=== PATIENT | male | born 1965 | race Caucasian/White ===

== ENCOUNTER → 2018-07-20 16:23 | Outpatient (CLI) | payer BC, SELFPAY ==
[2014-09-26 11:05] VITALS: BMI 42.3
--- NOTE | 2018-07-20 | ASPSI_PTH ---
PATIENT: EDDIE LINK LOC: [facility] U#:[id number] AGE/SX: 59/M ROOM: RE07/20/[address]: Dr. Xuan May MD : 1965 BED: DIS: SPEC #: [id number] RECD: 07/20/18 16:21 STATUS: VLAD DEAN #: [id number] EMELINA: 07/20/18 00:[address]: Xuan May DEPT: CYTOLOGY RECD BY: Waqar Horvath ENTERED: 07/21/18 11:46 SP TYPE: ASP NEAL PETTY DR: MD Dr. Tutu Raphael DO Tissues: A - Thyroid gland, NOS B - Thyroid gland, NOS Procedures: Pap Stain (control) Special Stain Group II Surgery Specimen Level IV Cell Block Cytospin Fluid Cytology Other HEADER OPERATION: Ultrasound-guided fine needle aspiration left thyroid PRE-OP DIAGNOSIS: Left thyroid nodule TISSUE SUBMITTED: A - FNA left thyroid fluid for cytology, B - FNA left thyroid slides x8 DIAGNOSIS CYTOLOGY A. 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 B. Fine needle aspiration, left thyroid nodule (smears): Positive for malignant cells consistent with papillary carcinoma. AM:duy 07/22/18 COMMENT A & B. 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 Clinical correlation is suggested. Immunohistochemistry on cell block (specimen `A'), [id number] supports the above diagnosis. Case has been reviewed in consultation with Dr. Nicole who concurs with the above diagnosis. IDC:SJ CYTOLOGY STUDY Slides are reviewed. CYTOLOGY GROSS A - Received is 22 ml of cloudy brown fluid labeled with the patient's name and and designated per the requisition as left thyroid. Submitted for cytology preparation including cell block. B - Received are eight smears labeled with the patient's name and designated per the requisition as left thyroid. Submitted for staining. 07/21/18 TC:0 CPT: 62562, 55463, 56552
--- NOTE | 2018-07-20 | IMM_PTH ---
PATIENT: EDDIE LINK LOC: [facility] U#:[id number] AGE/SX: 59/M ROOM: RE07/20/[address]: Dr. Xuan May MD : 1965 BED: DIS: SPEC #: [id number] RECD: 07/22/18 11:44 STATUS: VLAD REQ #: [id number] EMELINA: 07/20/18 00:[address]: Xuan May DEPT: IMMUNOHISTOCHEMISTRY RECD BY: Michela Rangel ENTERED: 07/22/18 11:46 SP TYPE: IMMUNO OTHR DR: Dr. Tutu Hendricks, DO Tissues: A - Thyroid gland, NOS Procedures: CD56 (add) CK19 (add) GAL-3 (add) HBME (add) CD44 (add) TTF1 (initial) PHYSICIAN & INSTITUTION [facility] [id number] SPECIMEN INFORMATION: Tissue Source: A - Left thyroid fluid, FNA Clinical Info: Left thyroid nodule Specimen Number: [id number] CPT code: 13708, 01948 x5 METHODOLOGY: Deparaffinized sections of prefer/formalin-fixed tissue or PAP/DQ stained slides are incubated with monoclonal/polyclonal antibodies/oligonucleotide probes. Localization is made via biotin free immunoperoxidase method. Appropriate controls are performed and reacted as expected. Results on target cell population are indicated in the following table: RESULTS: ANTIBODY / CLONE RESULT Block A TTF-1 (8G7G3/1) positive HBME1 (HBME-1) positive CK19 (A53-B/A2.26) positive GAL3 (9C4) positive CD56 (123C3.D5) negative anti-CD44 (SP37) positive These tests were developed and their performance characteristics determined by Laboratory. They may not have been cleared or approved by the U.[place]. Food and Drug Administration. The FDA has determined that such clearance or approval is not necessary. INTERPRETATION: A. Left thyroid fluid, FNA: Consistent with papillary thyroid carcinoma. AM:duy 07/23/18 Case has been reviewed in consultation with Dr. Nicole who concurs with the above diagnosis. IDC:GERA
--- OUTSIDE RECORDS SUMMARY | 2018-10-22 09:10 | XMS RPT_ITS ---
:1965 Author Organization [facility] Care Team Providers Name Role Phone CAMILA MANCUSO (DEHYDRATOR OPERATOR) Referring Unavailable CAMILA MANCUSO (DEHYDRATOR OPERATOR) Referring Unavailable CAMILA MANCUSO (DEHYDRATOR OPERATOR) Attending Unavailable CAMILA MANCUSO (DEHYDRATOR OPERATOR) Referring Unavailable MARGOT NEVAREZ (PA) Attending Unavailable SUSANA MENDIETA Referring Unavailable GABINO JOSEPH Admitting Unavailable GABINO JOSEPH Attending Unavailable MARGOT NEVAREZ (PA) Referring Unavailable CAMILA MANCUSO (DEHYDRATOR OPERATOR) Referring Unavailable CAMILA MANCUSO (DEHYDRATOR OPERATOR) Attending Unavailable CAMILA MANCUSO (DEHYDRATOR OPERATOR) Referring Unavailable CAMILA MANCUSO (DEHYDRATOR OPERATOR) Referring Unavailable CAMILA MANCUSO (DEHYDRATOR OPERATOR) Referring Unavailable CAMILA MANCUSO (DEHYDRATOR OPERATOR) Referring Unavailable MANCUSO, CAMILA (DEHYDRATOR OPERATOR) Referring Unavailable MANCUSO, CAMILA (DEHYDRATOR OPERATOR) Referring Unavailable XUAN MAY Attending Unavailable MISTY FLORES Referring Unavailable XUAN MAY Attending Unavailable XUAN MAY Referring Unavailable Bindu Ward Attending Unavailable Bindu Ward Referring Unavailable Farideh Warde Primary Care Unavailable Xuan May Attending Unavailable Xuan May Referring Unavailable ADALBERTO ALVA Primary Care Unavailable Gordo Torre Attending Unavailable Primay Care Physicia, No Referring Unavailable PROBLEMS PROBLEMS DATE TYPE CONDITION / CODE ATTENDING STATUS SOURCE 07/08/2018 Active Nontoxic single NA Active [place] thyroid nodule / Clinic Main E04.1(ICD-10) [facility] Repository 07/04/2016 Active Malignant neoplasm of NA Active [facility] rectum / C20(ICD-10) Clinic Other [facility] Rep[facility] 07/07/2018 Active Solitary pulmonary NA Active [place] nodule / Clinic Other R91.1(ICD-10) [facility] Repository 06/26/2018 Active Elevated NA Active [place] carcinoembryonic [facility] Main antigen (CEA) / [facility] R97.0(ICD-10) Repository 12/26/2017 Admitting Other fatigue / Ed, Active [facility] Diagnosis R53.83(ICD-10) [facility] Repository 12/26/2017 Admitting Hyperlipidemia, Ed, Active [facility] Diagnosis unspecified / [facility] E78.5(ICD-10) Repository 12/26/2017 Admitting Encounter for Ed, Active [facility] Diagnosis screening for [facility] malignant neoplasm of Repository prostate / Z12.5(ICD-10) 11/28/2017 Active Encounter for FAZAL, [facility] screening for GABINO T [facility] Main malignant neoplasm of [facility] colon / Repository Z12.11(ICD-10) 08/27/2017 Active Unknown / MANCUSO, Active [facility] UNK(Unknown) CAMILA (DEHYDRATOR OPERATOR) Clinic Main [facility] Repository PROCEDURES PROCEDURES No Procedure Records FoundRESULTS RESULTS PROGRESS Observed: 07/27/2018 Status: COMPLETED Source: [place] 11:42 AM [facility] REPOSITORY HNO ID: [id number] Author: Xuan May Service: (none) Author Type: Physician Type: Progress Notes Filed: 07/27/2018 11:52 AM Note Text: Eddie Segura Nikolay 1965 CHIEF COMPLAINT: Abnormal thyroid ultrasound HPI: Eddie is a 52 year old male with history of rectal cancer. Had follow up surveillance scan - found to have increased uptake on PET/CT of left thyroid area. US 07/16/18 Right thyroid lobe: Size: 5.5 x 2.1 x 1.8 cm (cc by AP by transverse) Nodules: None Left thyroid lobe: Size: 4 x 2.1 x 1.7 cm (cc by AP by transverse) Nodules: Heterogeneous, vascular 1.6 x 1.2 x 1.5 cm upper pole nodule demonstrates punctate echogenicities suggesting calcifications. Isthmus: Size: 0.4 cm (AP) Nodules: None Denies palpable neck masses. Denies new onset hoarseness. Denies swallowing problems. Denies taking any thyroid hormones. Denies exposure to radiation of head and neck area. Denies history of thyroiditis. No thyroid cancer known in family. 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 Fine needle aspiration, left thyroid nodule (smears): Positive for malignant cells consistent with papillary carcinoma RESULTS: ANTIBODY / CLONE RESULT Block A TTF-1 (8G7G3/1) positive HBME1 (HBME-1) positive CK19 (A53-B/A2.26) positive GAL3 (9C4) positive CD56 (123C3.D5) negative anti-CD44 (SP37) positive PAST MEDICAL HISTORY Hypertension Hyperlipidemia History of Rectal Cancer stage III - s/p APR, chemotherapy and radiation therapy History of left lower extremity DVT PAST SURGICAL HISTORY Past Surgical History of - 09/16/2013 (colon/ rectum resection) Colonoscopy W/Bx (Colon) - 08/13/13 Tunnel Vad W Sub Q Port >=5 - 11/09/13 (Left subclavian) Ventral hernia repair 09/26/14 Ventral hernia repair 03/21/16 COLONOSCOP W/ OR W/O BRSH SPEC 12/23/14 clean anastomosis - 3 year follow up COLONOSCOPY W/BX (COLON) 08/13/13 HERNIA REPAIR HX 03/2016 LAP INC HERNIA REPAIR 09/26/14 10x15 and [id number] mesh PAST SURGICAL HISTORY OF 09/16/2013 colon/ rectum resection TUNNEL VAD W SUB Q PORT >=5 11/09/13 Left subclavian APR 09/16/13 Right myofascial advancement flap Left myofascial advancement flap Current outpatient prescriptions: acetaminophen (TYLENOL EXTRA STRENGTH) 500 mg tablet Take two tablets by mouth every 4-6 hours as needed. Jzhixigicx-zhPRGVTdfh-HJEK (TRIBENZOR) 40-10-25 mg tab Take 1 tablet by mouth once daily. ALLERGIES: Codeine; Aleve; Aspirin PERSONAL HISTORY: SOCIAL HISTORY Marital Status: Tobacco Use: 1 packs/day, for 10 years. Quit 08/04/1987. Types: Cigarettes Alcohol Use: No Drug Use: No Sexual Activity: Not on file FAMILY HISTORY: Mother: Breast Cancer Father: other (renal failure; father at young age ude to kidney failure.) REVIEW OF SYSTEMS: General: The patient denies fatigue, denies weight loss, denies weight gain, denies feeling hot, and denies feelings of cold. Eyes: The patient denies glaucoma, denies eye injury/surgery, does not wear glasses or contacts. Ear/Nose/Throat: The patient denies allergies, denies hayfever, denies ear infections, and denies bloody noses. Cardiovascular: The patient denies chest pain, denies heart disease, notes high blood pressure,denies cardiac stent, denies prior heart attack, denies irregular heart beat, denies high cholesterol, denies poor circulation, denies heart failure, other cardiac issues, denies claudication, denies cold feet, denies peripheral arterial stent. Respiratory: The patient denies tuberculosis, denies pneumonia, denies frequent cough, denies pulmonary embolism, denies shortness of breath, and denies coughing up blood. Gastrointestinal: The patient denies difficulty swallowing, denies acid reflux, denies ulcers, denies vomiting, denies jaundice/hepatitis, denies gallbladder problems, denies black or tarry stools, denies hemorrhoids, denies bleeding from rectum, denies diverticulitis, denies constipation, denies diarrhea, denies loss of stool control, and notes hernias. Kidney/Bladder: The patient denies kidney stones, denies urine infections, and denies bloody urine. Skin: The patient denies a history of skin cancer, denies bleeding/changing moles, and denies a history of skin rash. Neurologic: The patient denies a history of epilepsy/convulsions, denies headaches, denies head/spinal injuries, and denies stroke/TIA. Psychiatric: The patient denies psychiatric medications, denies depression, and denies voices, denies substance abuse. Endocrine: The patient denies thyroid disorders, denies diabetes, and denies hormonal problems. Hematologic: The patient denies a history of bruising, denies bleeding, and denies anemia, denies blood clots. Infections: The patient denies a history of measles and mumps, denies rheumatic fever, and denies sexually transmitted diseases. Musculoskeletal: The patient denies back pain/injury, denies back problems, denies sciatica, denies knee/foot trouble, denies arthritis, or denies gout. PHYSICAL EXAMINATION: General: The patient is 48 year old male, well nourished, well hydrated in no acute distress. The patient is oriented to time, place, and person. VITALS: Ht: 5'10 Wt: 238# Head: normocephalic, atraumatic Eyes: sclera clear Mouth: mucus membranes moist Neck: supple with no JVD noted, trachea is midline, no thyroid enlargement or masses noted Respiratory: Clear to auscultation and percussion. Normal respiratory excursion and pattern. Cardiac: Examination is regular rate and rhythm. Abdominal exam: Soft, nontender, with no palpable masses. No hepatosplenomegaly. Rectal exam: exam deferred Extremities: no clubbing, cyanosis or edema. Lymph: no cervical or supraclavicular or axillary adenopathy RADIOLOGIC STUDIES: As Noted IMPRESSION: probable papillary thyroid cancer PLAN: I have discussed above with patient. I have discussed thyroid surgery with patient. Patient wishes to go to [facility] for surgery, I will refer patient to see Dr. Susi ADAN Observed: 07/27/2018 Status: COMPLETED Source: [place] 10:30 AM [facility] REPOSITORY Office Visit (GENSWS) EDDIE LONGORIA ([id number]) 1965 [place] Date Time Provider Department 07/27/18 10:30 AM XUAN MAY During your visit today, we recorded the following information about you: Xuna May MD 07/27/2018 11:52 AM Signed Eddie Longoria 1965 CHIEF COMPLAINT: Abnormal thyroid ultrasound HPI: Eddie is a 52 year old male with history of rectal cancer. Had follow up surveillance scan - found to have increased uptake on PET/CT of left thyroid area. US 07/16/18 Right thyroid lobe: Size: 5.5 x 2.1 x 1.8 cm (cc by AP by transverse) Nodules: None Left thyroid lobe: Size: 4 x 2.1 x 1.7 cm (cc by AP by transverse) Nodules: Heterogeneous, vascular 1.6 x 1.2 x 1.5 cm upper pole nodule demonstrates punctate echogenicities suggesting calcifications. Isthmus: Size: 0.4 cm (AP) Nodules: None Denies palpable neck masses. Denies new onset hoarseness. Denies swallowing problems. Denies taking any thyroid hormones. Denies exposure to radiation of head and neck area. Denies history of thyroiditis. No thyroid cancer known in family. 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 Fine needle aspiration, left thyroid nodule (smears): Positive for malignant cells consistent with papillary carcinoma RESULTS: ANTIBODY / CLONE RESULT Block A TTF-1 (8G7G3/1) positive HBME1 (HBME-1) positive CK19 (A53-B/A2.26) positive GAL3 (9C4) positive CD56 (123C3.D5) negative anti-CD44 (SP37) positive PAST MEDICAL HISTORY Hypertension Hyperlipidemia History of Rectal Cancer stage III - s/p APR, chemotherapy and radiation therapy History of left lower extremity DVT PAST SURGICAL HISTORY Past Surgical History of - 09/16/2013 (colon/ rectum resection) Colonoscopy W/Bx (Colon) - 08/13/13 Tunnel Vad W Sub Q Port >=5 - 11/09/13 (Left subclavian) Ventral hernia repair 09/26/14 Ventral hernia repair 03/21/16 COLONOSCOP W/ OR W/O BRSH SPEC 12/23/14 clean anastomosis - 3 year follow up COLONOSCOPY W/BX (COLON) 08/13/13 HERNIA REPAIR HX 03/2016 LAP INC HERNIA REPAIR 09/26/14 10x15 and [id number] mesh PAST SURGICAL HISTORY OF 09/16/2013 colon/ rectum resection TUNNEL VAD W SUB Q PORT >=5 11/09/13 Left subclavian APR 09/16/13 Right myofascial advancement flap Left myofascial advancement flap Current outpatient prescriptions: acetaminophen (TYLENOL EXTRA STRENGTH) 500 mg tablet Take two tablets by mouth every 4-6 hours as needed. Mirqvomjzw-kjURZFSgqj-DLEO (TRIBENZOR) 40-10-25 mg tab Take 1 tablet by mouth once daily. ALLERGIES: Codeine; Aleve; Aspirin PERSONAL HISTORY: SOCIAL HISTORY Marital Status: Tobacco Use: 1 packs/day, for 10 years. Quit 08/04/1987. Types: Cigarettes Alcohol Use: No Drug Use: No Sexual Activity: Not on file FAMILY HISTORY: Mother: Breast Cancer Father: other (renal failure; father at young age ude to kidney failure.) REVIEW OF SYSTEMS: General: The patient denies fatigue, denies weight loss, denies weight gain, denies feeling hot, and denies feelings of cold. Eyes: The patient denies glaucoma, denies eye injury/surgery, does not wear glasses or contacts. Ear/Nose/Throat: The patient denies allergies, denies hayfever, denies ear infections, and denies bloody noses. Cardiovascular: The patient denies chest pain, denies heart disease, notes high blood pressure,denies cardiac stent, denies prior heart attack, denies irregular heart beat, denies high cholesterol, denies poor circulation, denies heart failure, other cardiac issues, denies claudication, denies cold feet, denies peripheral arterial stent. Respiratory: The patient denies tuberculosis, denies pneumonia, denies frequent cough, denies pulmonary embolism, denies shortness of breath, and denies coughing up blood. Gastrointestinal: The patient denies difficulty swallowing, denies acid reflux, denies ulcers, denies vomiting, denies jaundice/hepatitis, denies gallbladder problems, denies black or tarry stools, denies hemorrhoids, denies bleeding from rectum, denies diverticulitis, denies constipation, denies diarrhea, denies loss of stool control, and notes hernias. Kidney/Bladder: The patient denies kidney stones, denies urine infections, and denies bloody urine. Skin: The patient denies a history of skin cancer, denies bleeding/changing moles, and denies a history of skin rash. Neurologic: The patient denies a history of epilepsy/convulsions, denies headaches, denies head/spinal injuries, and denies stroke/TIA. Psychiatric: The patient denies psychiatric medications, denies depression, and denies voices, denies substance abuse. Endocrine: The patient denies thyroid disorders, denies diabetes, and denies hormonal problems. Hematologic: The patient denies a history of bruising, denies bleeding, and denies anemia, denies blood clots. Infections: The patient denies a history of measles and mumps, denies rheumatic fever, and denies sexually transmitted diseases. Musculoskeletal: The patient denies back pain/injury, denies back problems, denies sciatica, denies knee/foot trouble, denies arthritis, or denies gout. PHYSICAL EXAMINATION: General: The patient is 48 year old male, well nourished, well hydrated in no acute distress. The patient is oriented to time, place, and person. VITALS: Ht: 5'10 Wt: 238# Head: normocephalic, atraumatic Eyes: sclera clear Mouth: mucus membranes moist Neck: supple with no JVD noted, trachea is midline, no thyroid enlargement or masses noted Respiratory: Clear to auscultation and percussion. Normal respiratory excursion and pattern. Cardiac: Examination is regular rate and rhythm. Abdominal exam: Soft, nontender, with no palpable masses. No hepatosplenomegaly. Rectal exam: exam deferred Extremities: no clubbing, cyanosis or edema. Lymph: no cervical or supraclavicular or axillary adenopathy RADIOLOGIC STUDIES: As Noted IMPRESSION: probable papillary thyroid cancer PLAN: I have discussed above with patient. I have discussed thyroid surgery with patient. Patient wishes to go to [facility] for surgery, I will refer patient to see Dr. Goldman Referring Provider: XUAN MAY [[id number]] Allergies As of Date: 07/27/2018 Noted Allergy Reaction CODEINE 08/25/2013 10 - Anaphylaxis Comments: Had codeine when a teenager and had facial swelling. ALEVE (NAPROXEN SODIUM) 08/25/2013 8 - GI Upset ASPIRIN 08/25/2013 8 - GI Upset Date Reviewed: 07/27/2018 Reviewed by: Xuan May - Fully Assessed Reason for Visit: discuss biopsy [Other] Primary Visit Diagnosis:Thyroid cancer (HCC) [C73] Prescriptions as of 07/27/2018 Sig: AMLODIPINE 10 MG-OLMESARTAN 4* Take by mouth once daily. IBUPROFEN 200 MG TABLET Take 600 mg by mouth every 8 * MULTIVITAMIN TABLET Take 1 tablet by mouth once d* OLMESARTAN 40 MG-AMLODIPINE 1* Take 1 tablet by mouth once d* Problem List As Of Date 07/27/2018 Noted Resolved Rectal cancer (HCC) [C20] INVALID FOR*03/21/2016 DVT (deep venous thrombosis) (HCC) [I82.409] INVALID FOR*03/21/2016 Thrombocytopenia (HCC) [D69.6] INVALID FOR* Incisional hernia [K43.2] INVALID FOR*03/21/2016 Incisional hernia, without obstruction or gangr*INVALID FOR* Recurrent incisional hernia with incarceration *INVALID FOR*03/21/2016 Incisional hernia [K43.2] INVALID FOR* Rectal cancer (HCC) [C20] INVALID FOR* Thyroid nodule [E04.1] INVALID FOR* Follow-up and Disposition History Recorded Encounter Status:Closed by MD XUAN MAY on 07/27/18 PROCEDURE Observed: 07/25/2018 Status: COMPLETED Source: [place] 12:10 PM [facility] REPOSITORY HNO ID: [id number] Author: Xuan May Service: (none) Author Type: Physician Type: Procedures Filed: 07/25/2018 12:11 PM Note Text: After informed consent was given and patient gives permission for the procedure, the patient was placed in the supine position with slight neck extension. Appropriate time out protocol was followed. The ultrasound transducer was used to localize the lesion which was in the left lobe. The skin and subcutaneous tissues were then infiltrated with 1% xylocaine with epinephrine after the skin was cleansed with betadyne. A 22G needle attached to a 10 cc syringe was the inserted into the nodule using the US transducer as guidance. The syringe was aspirated, several passes were made to obtain adequate tissue. The needle was then withdrawn and smear slides were made and the remainder of the tissue was placed in formalin. Hemostasis was achieved by pressure. A bandaid was applied to the site. Patient tolerated procedure well. CNOV Observed: 07/20/2018 Status: COMPLETED Source: [place] 9:10 AM [facility] REPOSITORY Office Visit (GENSWS) EDDIE LONGORIA ([id number]) 1965 M Date Time Provider Department 07/20/18 9:10 AM XUAN MAY During your visit today, we recorded the following information about you: Temperature Pulse Blood pressure Weight 98.1 degrees 66/minute 136/84 108 kg Xuan May MD 07/25/2018 12:11 PM Signed Eddie Longoria 1965 CHIEF COMPLAINT: Abnormal thyroid ultrasound HPI: Eddie is a 52 year old male with history of rectal cancer. Had follow up surveillance scan - found to have increased uptake on PET/CT of left thyroid area. US 07/16/18 Right thyroid lobe: Size: 5.5 x 2.1 x 1.8 cm (cc by AP by transverse) Nodules: None Left thyroid lobe: Size: 4 x 2.1 x 1.7 cm (cc by AP by transverse) Nodules: Heterogeneous, vascular 1.6 x 1.2 x 1.5 cm upper pole nodule demonstrates punctate echogenicities suggesting calcifications. Isthmus: Size: 0.4 cm (AP) Nodules: None Denies palpable neck masses. Denies new onset hoarseness. Denies swallowing problems. Denies taking any thyroid hormones. Denies exposure to radiation of head and neck area. Denies history of thyroiditis. No thyroid cancer known in family. PAST MEDICAL HISTORY Hypertension Hyperlipidemia History of Rectal Cancer stage III - s/p APR, chemotherapy and radiation therapy History of left lower extremity DVT PAST SURGICAL HISTORY Past Surgical History of - 09/16/2013 (colon/ rectum resection) Colonoscopy W/Bx (Colon) - 08/13/13 Tunnel Vad W Sub Q Port >=5 - 11/09/13 (Left subclavian) Ventral hernia repair 09/26/14 Ventral hernia repair 03/21/16 COLONOSCOP W/ OR W/O BRSH SPEC 12/23/14 clean anastomosis - 3 year follow up COLONOSCOPY W/BX (COLON) 08/13/13 HERNIA REPAIR HX 03/2016 LAP INC HERNIA REPAIR 09/26/14 10x15 and [id number] mesh PAST SURGICAL HISTORY OF 09/16/2013 colon/ rectum resection TUNNEL VAD W SUB Q PORT >=5 11/09/13 Left subclavian APR 09/16/13 Right myofascial advancement flap Left myofascial advancement flap Current outpatient prescriptions: acetaminophen (TYLENOL EXTRA STRENGTH) 500 mg tablet Take two tablets by mouth every 4-6 hours as needed. Pbwffcyvof-zcLHOIDcls-BNCA (TRIBENZOR) 40-10-25 mg tab Take 1 tablet by mouth once daily. ALLERGIES: Codeine; Aleve; Aspirin PERSONAL HISTORY: SOCIAL HISTORY Marital Status: Tobacco Use: 1 packs/day, for 10 years. Quit 08/04/1987. Types: Cigarettes Alcohol Use: No Drug Use: No Sexual Activity: Not on file FAMILY HISTORY: Mother: Breast Cancer Father: other (renal failure; father at young age ude to kidney failure.) REVIEW OF SYSTEMS: General: The patient denies fatigue, denies weight loss, denies weight gain, denies feeling hot, and denies feelings of cold. Eyes: The patient denies glaucoma, denies eye injury/surgery, does not wear glasses or contacts. Ear/Nose/Throat: The patient denies allergies, denies hayfever, denies ear infections, and denies bloody noses. Cardiovascular: The patient denies chest pain, denies heart disease, notes high blood pressure,denies cardiac stent, denies prior heart attack, denies irregular heart beat, denies high cholesterol, denies poor circulation, denies heart failure, other cardiac issues, denies claudication, denies cold feet, denies peripheral arterial stent. Respiratory: The patient denies tuberculosis, denies pneumonia, denies frequent cough, denies pulmonary embolism, denies shortness of breath, and denies coughing up blood. Gastrointestinal: The patient denies difficulty swallowing, denies acid reflux, denies ulcers, denies vomiting, denies jaundice/hepatitis, denies gallbladder problems, denies black or tarry stools, denies hemorrhoids, denies bleeding from rectum, denies diverticulitis, denies constipation, denies diarrhea, denies loss of stool control, and notes hernias. Kidney/Bladder: The patient denies kidney stones, denies urine infections, and denies bloody urine. Skin: The patient denies a history of skin cancer, denies bleeding/changing moles, and denies a history of skin rash. Neurologic: The patient denies a history of epilepsy/convulsions, denies headaches, denies head/spinal injuries, and denies stroke/TIA. Psychiatric: The patient denies psychiatric medications, denies depression, and denies voices, denies substance abuse. Endocrine: The patient denies thyroid disorders, denies diabetes, and denies hormonal problems. Hematologic: The patient denies a history of bruising, denies bleeding, and denies anemia, denies blood clots. Infections: The patient denies a history of measles and mumps, denies rheumatic fever, and denies sexually transmitted diseases. Musculoskeletal: The patient denies back pain/injury, denies back problems, denies sciatica, denies knee/foot trouble, denies arthritis, or denies gout. PHYSICAL EXAMINATION: General: The patient is 48 year old male, well nourished, well hydrated in no acute distress. The patient is oriented to time, place, and person. VITALS: Ht: 5'10 Wt: 238# Head: normocephalic, atraumatic Eyes: sclera clear Mouth: mucus membranes moist Neck: supple with no JVD noted, trachea is midline, no thyroid enlargement or masses noted Respiratory: Clear to auscultation and percussion. Normal respiratory excursion and pattern. Cardiac: Examination is regular rate and rhythm. Abdominal exam: Soft, nontender, with no palpable masses. No hepatosplenomegaly. Rectal exam: exam deferred Extremities: no clubbing, cyanosis or edema. Lymph: no cervical or supraclavicular or axillary adenopathy RADIOLOGIC STUDIES: As Noted IMPRESSION: left thyroid nodule with increased uptake PLAN: I have discussed above with patient. I have recommended US guided FNA of left thyroid nodule. I have explained the procedure to the patient. I have counseled patient as to risks of the procedure, including but not limited to: infection, bleeding, scar tissue, etc. - he understands. He wishes to proceed. Patient tolerated procedure well. This office will call with pathology results. Lashae Farrell RN 07/20/2018 9:08 AM Signed REVIEW OF SYSTEMS: General: The patient denies fatigue, denies weight loss, denies weight gain, denies feeling hot, and denies feelings of cold. Eyes: The patient denies glaucoma, denies eye injury/surgery, does not wear glasses or contacts. Ear/Nose/Throat: The patient denies allergies, denies hayfever, denies ear infections, and denies bloody noses. Cardiovascular: The patient denies chest pain, denies heart disease, notes high blood pressure,denies cardiac stent, denies prior heart attack, denies irregular heart beat, denies high cholesterol, denies poor circulation, denies heart failure, other cardiac issues, denies claudication, denies cold feet, denies peripheral arterial stent. Respiratory: The patient denies tuberculosis, denies pneumonia, denies frequent cough, denies pulmonary embolism, denies shortness of breath, and denies coughing up blood. Gastrointestinal: The patient denies difficulty swallowing, denies acid reflux, denies ulcers, denies vomiting, denies jaundice/hepatitis, denies gallbladder problems, denies black or tarry stools, denies hemorrhoids, denies bleeding from rectum, denies diverticulitis, denies constipation, denies diarrhea, denies loss of stool control, and notes hernias. Kidney/Bladder: The patient denies kidney stones, denies urine infections, and denies bloody urine. Skin: The patient denies a history of skin cancer, denies bleeding/changing moles, and denies a history of skin rash. Neurologic: The patient denies a history of epilepsy/convulsions, denies headaches, denies head/spinal injuries, and denies stroke/TIA. Psychiatric: The patient denies psychiatric medications, denies depression, and denies voices, denies substance abuse. Endocrine: The patient denies thyroid disorders, denies diabetes, and denies hormonal problems. Hematologic: The patient denies a history of bruising, denies bleeding, and denies anemia, denies blood clots. Infections: The patient denies a history of measles and mumps, denies rheumatic fever, and denies sexually transmitted diseases. Musculoskeletal: The patient denies back pain/injury, denies back problems, denies sciatica, denies knee/foot trouble, denies arthritis, or denies gout. When was patient's last Mammogram screening? N/A Last Colonoscopy: 11/2017 Lashae May MD 07/25/2018 12:11 PM Signed After informed consent was given and patient gives permission for the procedure, the patient was placed in the supine position with slight neck extension. Appropriate time out protocol was followed. The ultrasound transducer was used to localize the lesion which was in the left lobe. The skin and subcutaneous tissues were then infiltrated with 1% xylocaine with epinephrine after the skin was cleansed with betadyne. A 22G needle attached to a 10 cc syringe was the inserted into the nodule using the US transducer as guidance. The syringe was aspirated, several passes were made to obtain adequate tissue. The needle was then withdrawn and smear slides were made and the remainder of the tissue was placed in formalin. Hemostasis was achieved by pressure. A bandaid was applied to the site. Patient tolerated procedure well. Referring Provider: MISTY FLORES [[id number]] Allergies As of Date: 07/20/2018 Noted Allergy Reaction CODEINE 08/25/2013 10 - Anaphylaxis Comments: Had codeine when a teenager and had facial swelling. ALEVE (NAPROXEN SODIUM) 08/25/2013 8 - GI Upset ASPIRIN 08/25/2013 8 - GI Upset Date Reviewed: 07/20/2018 Reviewed by: Lashae Farrell RN - Fully Assessed Reason for Visit: Consult [173] Cmt: thyroid Primary Visit Diagnosis:Left thyroid nodule [E04.1] Prescriptions as of 07/20/2018 Sig: AMLODIPINE 10 MG-OLMESARTAN 4* Take by mouth once daily. IBUPROFEN 200 MG TABLET Take 600 mg by mouth every 8 * MULTIVITAMIN TABLET Take 1 tablet by mouth once d* OLMESARTAN 40 MG-AMLODIPINE 1* Take 1 tablet by mouth once d* Problem List As Of Date 07/20/2018 Noted Resolved Rectal cancer (HCC) [C20] INVALID FOR*03/21/2016 DVT (deep venous thrombosis) (HCC) [I82.409] INVALID FOR*03/21/2016 Thrombocytopenia (HCC) [D69.6] INVALID FOR* Incisional hernia [K43.2] INVALID FOR*03/21/2016 Incisional hernia, without obstruction or gangr*INVALID FOR* Recurrent incisional hernia with incarceration *INVALID FOR*03/21/2016 Incisional hernia [K43.2] INVALID FOR* Rectal cancer (HCC) [C20] INVALID FOR* Thyroid nodule [E04.1] INVALID FOR* Visit Notes: >> Lashae Farrell RN Mon Jul 20, 2018 9:07 AM Status: Signed REVIEW OF SYSTEMS: General: The patient denies fatigue, denies weight loss, denies weight gain, denies feeling hot, and denies feelings of cold. Eyes: The patient denies glaucoma, denies eye injury/surgery, does not wear glasses or contacts. Ear/Nose/Throat: The patient denies allergies, denies hayfever, denies ear infections, and denies bloody noses. Cardiovascular: The patient denies chest pain, denies heart disease, notes high blood pressure,denies cardiac stent, denies prior heart attack, denies irregular heart beat, denies high cholesterol, denies poor circulation, denies heart failure, other cardiac issues, denies claudication, denies cold feet, denies peripheral arterial stent. Respiratory: The patient denies tuberculosis, denies pneumonia, denies frequent cough, denies pulmonary embolism, denies shortness of breath, and denies coughing up blood. Gastrointestinal: The patient denies difficulty swallowing, denies acid reflux, denies ulcers, denies vomiting, denies jaundice/hepatitis, denies gallbladder problems, denies black or tarry stools, denies hemorrhoids, denies bleeding from rectum, denies diverticulitis, denies constipation, denies diarrhea, denies loss of stool control, and notes hernias. Kidney/Bladder: The patient denies kidney stones, denies urine infections, and denies bloody urine. Skin: The patient denies a history of skin cancer, denies bleeding/changing moles, and denies a history of skin rash. Neurologic: The patient denies a history of epilepsy/convulsions, denies headaches, denies head/spinal injuries, and denies stroke/TIA. Psychiatric: The patient denies psychiatric medications, denies depression, and denies voices, denies substance abuse. Endocrine: The patient denies thyroid disorders, denies diabetes, and denies hormonal problems. Hematologic: The patient denies a history of bruising, denies bleeding, and denies anemia, denies blood clots. Infections: The patient denies a history of measles and mumps, denies rheumatic fever, and denies sexually transmitted diseases. Musculoskeletal: The patient denies back pain/injury, denies back problems, denies sciatica, denies knee/foot trouble, denies arthritis, or denies gout. When was patient's last Mammogram screening? N/A Last Colonoscopy: 11/2017 Lashae Farrell RN Letter Text Encounter Status:Closed by MD XUAN MAY on 07/25/18 PROGRESS Observed: 07/20/2018 Status: COMPLETED Source: [place] 8:55 AM [facility] REPOSITORY HNO ID: [id number] Author: Xuan May Service: (none) Author Type: Physician Type: Progress Notes Filed: 07/25/2018 12:11 PM Note Text: Eddie Longoria 1965 CHIEF COMPLAINT: Abnormal thyroid ultrasound HPI: Eddie is a 52 year old male with history of rectal cancer. Had follow up surveillance scan - found to have increased uptake on PET/CT of left thyroid area. US 07/16/18 Right thyroid lobe: Size: 5.5 x 2.1 x 1.8 cm (cc by AP by transverse) Nodules: None Left thyroid lobe: Size: 4 x 2.1 x 1.7 cm (cc by AP by transverse) Nodules: Heterogeneous, vascular 1.6 x 1.2 x 1.5 cm upper pole nodule demonstrates punctate echogenicities suggesting calcifications. Isthmus: Size: 0.4 cm (AP) Nodules: None Denies palpable neck masses. Denies new onset hoarseness. Denies swallowing problems. Denies taking any thyroid hormones. Denies exposure to radiation of head and neck area. Denies history of thyroiditis. No thyroid cancer known in family. PAST MEDICAL HISTORY Hypertension Hyperlipidemia History of Rectal Cancer stage III - s/p APR, chemotherapy and radiation therapy History of left lower extremity DVT PAST SURGICAL HISTORY Past Surgical History of - 09/16/2013 (colon/ rectum resection) Colonoscopy W/Bx (Colon) - 08/13/13 Tunnel Vad W Sub Q Port >=5 - 11/09/13 (Left subclavian) Ventral hernia repair 09/26/14 Ventral hernia repair 03/21/16 COLONOSCOP W/ OR W/O BRSH SPEC 12/23/14 clean anastomosis - 3 year follow up COLONOSCOPY W/BX (COLON) 08/13/13 HERNIA REPAIR HX 03/2016 LAP INC HERNIA REPAIR 09/26/14 10x15 and 23q68gs mesh PAST SURGICAL HISTORY OF 09/16/2013 colon/ rectum resection TUNNEL VAD W SUB Q PORT >=5 11/09/13 Left subclavian APR 09/16/13 Right myofascial advancement flap Left myofascial advancement flap Current outpatient prescriptions: acetaminophen (TYLENOL EXTRA STRENGTH) 500 mg tablet Take two tablets by mouth every 4-6 hours as needed. Varyzgycqu-usRWPLPrmt-EXCA (TRIBENZOR) 40-10-25 mg tab Take 1 tablet by mouth once daily. ALLERGIES: Codeine; Aleve; Aspirin PERSONAL HISTORY: SOCIAL HISTORY Marital Status: Tobacco Use: 1 packs/day, for 10 years. Quit 08/04/1987. Types: Cigarettes Alcohol Use: No Drug Use: No Sexual Activity: Not on file FAMILY HISTORY: Mother: Breast Cancer Father: other (renal failure; father at young age ude to kidney failure.) REVIEW OF SYSTEMS: General: The patient denies fatigue, denies weight loss, denies weight gain, denies feeling hot, and denies feelings of cold. Eyes: The patient denies glaucoma, denies eye injury/surgery, does not wear glasses or contacts. Ear/Nose/Throat: The patient denies allergies, denies hayfever, denies ear infections, and denies bloody noses. Cardiovascular: The patient denies chest pain, denies heart disease, notes high blood pressure,denies cardiac stent, denies prior heart attack, denies irregular heart beat, denies high cholesterol, denies poor circulation, denies heart failure, other cardiac issues, denies claudication, denies cold feet, denies peripheral arterial stent. Respiratory: The patient denies tuberculosis, denies pneumonia, denies frequent cough, denies pulmonary embolism, denies shortness of breath, and denies coughing up blood. Gastrointestinal: The patient denies difficulty swallowing, denies acid reflux, denies ulcers, denies vomiting, denies jaundice/hepatitis, denies gallbladder problems, denies black or tarry stools, denies hemorrhoids, denies bleeding from rectum, denies diverticulitis, denies constipation, denies diarrhea, denies loss of stool control, and notes hernias. Kidney/Bladder: The patient denies kidney stones, denies urine infections, and denies bloody urine. Skin: The patient denies a history of skin cancer, denies bleeding/changing moles, and denies a history of skin rash. Neurologic: The patient denies a history of epilepsy/convulsions, denies headaches, denies head/spinal injuries, and denies stroke/TIA. Psychiatric: The patient denies psychiatric medications, denies depression, and denies voices, denies substance abuse. Endocrine: The patient denies thyroid disorders, denies diabetes, and denies hormonal problems. Hematologic: The patient denies a history of bruising, denies bleeding, and denies anemia, denies blood clots. Infections: The patient denies a history of measles and mumps, denies rheumatic fever, and denies sexually transmitted diseases. Musculoskeletal: The patient denies back pain/injury, denies back problems, denies sciatica, denies knee/foot trouble, denies arthritis, or denies gout. PHYSICAL EXAMINATION: General: The patient is 48 year old male, well nourished, well hydrated in no acute distress. The patient is oriented to time, place, and person. VITALS: Ht: 5'10 Wt: 238# Head: normocephalic, atraumatic Eyes: sclera clear Mouth: mucus membranes moist Neck: supple with no JVD noted, trachea is midline, no thyroid enlargement or masses noted Respiratory: Clear to auscultation and percussion. Normal respiratory excursion and pattern. Cardiac: Examination is regular rate and rhythm. Abdominal exam: Soft, nontender, with no palpable masses. No hepatosplenomegaly. Rectal exam: exam deferred Extremities: no clubbing, cyanosis or edema. Lymph: no cervical or supraclavicular or axillary adenopathy RADIOLOGIC STUDIES: As Noted IMPRESSION: left thyroid nodule with increased uptake PLAN: I have discussed above with patient. I have recommended US guided FNA of left thyroid nodule. I have explained the procedure to the patient. I have counseled patient as to risks of the procedure, including but not limited to: infection, bleeding, scar tissue, etc. - he understands. He wishes to proceed. Patient tolerated procedure well. This office will call with pathology results. IMMUNOHISTOCHEMISTRY Observed: 07/20/2018 Status: F Source: [place] 12:00 AM [facility] REPOSITORY Patient: EDDIE LONGORIA : 1965 (52/M) Acct Num: [id number] Phys: Xuan May MD Unit Num: [id number] Loc: LABSPEC Specimen: [id number] Received: 07/22/18 1144 Spec Type: IMMUNO TISSUES 1 TISSUES: A. Thyroid gland, NOS SPECIMEN INFORMATION: Tissue Source: A - Left thyroid fluid, FNA Clinical Info: Left thyroid nodule Specimen Number: [id number] CPT code: 83420, 58250 x5 METHODOLOGY: Deparaffinized sections of prefer/formalin-fixed tissue or PAP/DQ stained slides are incubated with monoclonal/polyclonal antibodies/oligonucleotide probes. Localization is made via biotin free immunoperoxidase method. Appropriate controls are performed and reacted as expected. Results on target cell population are indicated in the following table: RESULTS: ANTIBODY / CLONE RESULT Block A TTF-1 (8G7G3/1) positive HBME1 (HBME-1) positive CK19 (A53-B/A2.26) positive GAL3 (9C4) positive CD56 (123C3.D5) negative anti-CD44 (SP37) positive These tests were developed and their performance characteristics determined by [facility]. They may not have been cleared or approved by the U.S. Food and Drug Administration. The FDA has determined that such clearance or approval is not necessary. INTERPRETATION: A. Left thyroid fluid, FNA: Consistent with papillary thyroid carcinoma. AM: 07/23/18 Case has been reviewed in consultation with Dr. Nicole who concurs with the above diagnosis. IDC: PHYSICIAN AND INSTITUTION [place] [id number] Signed Chapin Us DO 07/23/18 <signature on file> Performed By: #### PIMM #### [facility] [address] [place] [address]. [place], [address] ASP SEND IN Observed: 07/20/2018 Status: F Source: [place] 12:00 [facility] REPOSITORY Patient: EDDIE LONGORIA : 1965 (52/M) Acct Num: [id number] Phys: Xuan May MD Unit Num: [id number] Loc: LABSPEC Specimen: [id number] Received: 07/20/18 - 1620 Spec Type: ASP SENDIN TISSUES 1 TISSUES: A. Thyroid gland, NOS - FLUID B. Thyroid gland, NOS - SLIDES X8 COMMENT A AND B. The neoplastic cells have H rthle cell features. Clinical correlation is suggested. Immunohistochemistry on cell block (specimen `A'), [id number] supports the above diagnosis. Case has been reviewed in consultation with Dr. Nicole who concurs with the above diagnosis. IDC: CYTOLOGY GROSS A - Received is 22 ml of cloudy brown fluid labeled with the patient's name and and designated per the requisition as left thyroid. Submitted for cytology preparation including cell block. B - Received are eight smears labeled with the patient's name and designated per the requisition as left thyroid. Submitted for staining. / 07/21/18 TC: 0 CPT: 44389, 00221, 71590 CYTOLOGY STUDY Slides are reviewed. DIAGNOSIS CYTOLOGY A. 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 B. Fine needle aspiration, left thyroid nodule (smears): Positive for malignant cells consistent with papillary carcinoma. AM:duy 07/22/18 HEADER OPERATION: Ultrasound-guided fine needle aspiration left thyroid PRE-OP DIAGNOSIS: Left thyroid nodule TISSUE SUBMITTED: A - FNA left thyroid fluid for cytology, B - FNA left thyroid slides x8 Signed Chapin Us, 07/23/18 <signature on file> Performed By: #### MEHDI #### [facility] [address] [place] [address], [id number] PROGRESS Observed: 07/16/2018 Status: COMPLETED Source: [place] 4:14 PM [facility] REPOSITORY O ID: [id number] Author: Юлия Mitchell Service: (none) Author Type: Shaper And Presser Type: Progress Notes Filed: 07/16/2018 4:15 PM Note Text: Radiology Service Progress Note PATIENT NAME: Eddie Longoria DATE OF SERVICE: July 16, 2018 TIME: 4:14 PM PATIENT IDENTITY VERIFICATION COMPLETED USING TWO (2) METHODS: Patient confirmed name verbally and Date of . PATIENT GENDER DATA: Male PATIENT RELEVANT IMPLANT DATA REVIEWED: Not Applicable RADIOLOGY DEPARTMENT: Ultrasound PERIPHERAL IV DATA: Not applicable SIGNED BY: ЮЛИЯ MITCHELL RDMS Beto July 16, 2018 4:14 PM US THYROID/PARATHYROID Observed: 07/16/2018 Status: F Source: [place] 4:13 PM [facility] REPOSITORY * * *Final Report* * * DATE OF EXAM: Jul 16 2018 4:13PM U 1048 - US THYROID/PARATHYROID / PROCEDURE REASON: Thyroid nodule * * * * Physician Interpretation * * * * THYROID ULTRASOUND COMPARISON: 07/07/2018 PET/CT INDICATION: Thyroid nodule seen on recent PET/CT TECHNIQUE: Real-time pete scale ultrasound imaging of the thyroid was performed with color Doppler imaging. Images were obtained and stored in a permanent archive. RESULT: Thyroid is mildly heterogeneous in echotexture. Symmetric Doppler signal to both thyroid lobes without hyperemia. Right thyroid lobe: Size: 5.5 x 2.1 x 1.8 cm (cc by AP by transverse) Nodules: None Left thyroid lobe: Size: 4 x 2.1 x 1.7 cm (cc by AP by transverse) Nodules: Heterogeneous, vascular 1.6 x 1.2 x 1.5 cm upper pole nodule demonstrates punctate echogenicities suggesting calcifications. Isthmus: Size: 0.4 cm (AP) Nodules: None IMPRESSION: Dominant left thyroid nodule. Sap Portal Consultant: JARET Transcribe Date/Time: Jul 17 2018 10:19A Dictated by : EMI BROWN MD This examination was interpreted and the report reviewed and electronically signed by: EMI BROWN MD on Jul 17 2018 10:22AM EST [id number] NM PET/CT WHOLE Observed: 07/07/2018 Status: F Source: [place] BODY INIT 1:28 PM [facility] REPOSITORY * * *Final Report* * * DATE OF EXAM: Jul 07 2018 1:28PM MDP 0061 - NM PET/CT WHOLE BODY INIT / PROCEDURE REASON: multiple diagnoses * * * * Physician Interpretation * * * * EXAMINATION: REGIONAL BODY FDG PET/CT SCAN: (07/07/2018 1:30 PM) HISTORY: 52 year old Male with Rectal cancer (HCC) Lung nodule Malignant neoplasm of rectum (HCC) .PER EPIC NOTE H/o previously in good health. He noted a change in bowel habits and went to his PCP. Was referred for colonoscopy. Had this done 08/13/2013 in [place]. There was a tumor at about 10 cm. Biopsy positive for an invasive moderately differentiated adenocarcinoma arising in association with tubulovillous adenoma. ? Was referred to CRS. Proctoscopy revealed tumor at 10 cm. ?? Underwent APR 09/16/2013 with anastomosis.?? SIGMOID RECTUM: COLON AND RECTUM:RESECTION, INCLUDING TRANSANAL DISK EXCISION OF RECTAL NEOPLASMS? Tumor invades through the muscularis propria into the subserosal adipose tissue or the nonperitonealized pericolic or perirectal soft tissues but does not extend to the serosal surface All Margins Uninvolved By Invasive Carcinoma: Began radiation 02/28/14. ? Completed 50.4 Gy. He had continued thrombocytopenia and Xeloda was held at 21.6 Gy. ? Completed first cycle Xeloda 06/06/14. Incisional hernia repair by Dr. Joseph on 09/26/14. INDICATION: Study performed for initial treatment strategy. TECHNIQUE: F18-FDG administered IV was followed about 60 minutes later by PET imaging from SKULL BASE THRU PROXIMAL THIGHS. Free breathing low dose CT was performed without contrast for attenuation correction and anatomic localization. Blood glucose before FDG injection: Not obtained FDG radionuclide dose: 16.[address] Dose-Length Product (DLP): 453 mGy*cm. CT Dose Reduction Employed: Yes COMPARISON: None available CORRELATION: CT chest abdomen and pelvis 06/26/2018 RESULT: HEAD AND NECK: Physiologic uptake seen in the visualized brain, parapharyngeal soft tissues, base of tongue, vocal cords, and salivary glands. No hypermetabolic cervical lymphadenopathy or masses. No focal thyroid lesion. There is an FDG avid focus in the left thyroid gland (image 101 with maximum SUV = 9.9), compatible with hypermetabolic thyroid nodule. CHEST: Physiologic uptake in the heart and mediastinum. Lungs and tracheobronchial tree: No hypermetabolic consolidation, mass or nodules. 5 mm left lower lobe nodule is below the lesion abuts imaging (image 140). There is a calcified granuloma in the middle lobe (image 111) and left upper lobe (image 115). Pleura: No hypermetabolic pleural or pericardial effusion, or pleural mass. Mediastinum and Lymph nodes: No hypermetabolic axillary, hilar, or mediastinal lymphadenopathy. No mediastinal mass. Chest wall and axilla: Unremarkable. ABDOMEN AND PELVIS: Physiologic uptake seen in the and GI tracts. Liver: No mass. Biliary: No bile duct dilation. Gallbladder is unremarkable. Spleen: No mass. No splenomegaly. Pancreas: No mass or duct dilation. Adrenals: No mass. Kidneys: No stones, hydronephrosis, or hypermetabolic lesions. . GI tract: No dilation or wall thickening. There are postsurgical changes of rectal resection with anastomosis. No abnormal areas of FDG tracer accumulation, to suggest disease recurrence. Lymph nodes: No abdominal or pelvic lymphadenopathy. Mesentery/Peritoneum: No ascites or mass. Vasculature: Vascular patency cannot be assessed due to lack of IV contrast. There are atherosclerotic calcifications without aneurysmal dilation. Pelvis: No mass, ascites or fluid collection. BONES AND EXTREMITIES: No suspicious FDG avid foci are detected. The imaged portions of the skeleton disclose age-related degenerative changes, with no detectable destructive lytic or sclerotic lesions to suggest metastases. ====== IMPRESSION: 1. NECK: FDG avid left thyroid nodule. Recommend correlation with ultrasound. 2. CHEST: No FDG avid neoplastic process. Left lower lobe pulmonary nodule was better evaluated on CT of the chest from 06/26/2018, and continued radiographic follow-up is recommended. 3. ABDOMEN/PELVIS: No FDG avid neoplastic process. No mass, adenopathy, or fluid collection. 4. EXTREMITIES/SKELETON: No FDG avid osseous process. No destructive/traumatic bony abnormality. Sap Portal Consultant: PSCB Transcribe Date/Time: Jul 07 2018 1:30P Dictated by : LUNA BARRAZA MD This examination was interpreted and the report reviewed and electronically signed by: BRITTA GUSTAFSON MD on Jul 07 2018 6:42PM EST [id number] PROGRESS Observed: 06/26/2018 Status: COMPLETED Source: [place] 12:02 PM [facility] REPOSITORY HNO ID: [id number] Author: Klaudia Lassiter Ct Service: (none) Author Type: (none) Type: Progress Notes Filed: 06/26/2018 12:03 PM Note Text: Radiology Service Progress Note PATIENT NAME: Eddie Longoria DATE OF SERVICE: June 26, 2018 TIME: 12:02 PM PATIENT IDENTITY VERIFICATION COMPLETED USING TWO (2) METHODS: Patient confirmed name verbally and Date of . PATIENT GENDER DATA: Male PATIENT RELEVANT IMPLANT DATA REVIEWED: Not Applicable CONTRAST INDUCED NEPHROPATHY RISK FACTORS: Not applicable CREATININE: Creatinine Date Value Ref Range Status 03/24/2016 0.95 0.70 - 1.40 mg/dL Final 03/23/2016 1.01 0.70 - 1.40 mg/dL Final 03/23/2016 1.30 0.70 - 1.40 mg/dL Final eGFR-All Other Races Date Value Ref Range Status 03/24/2016 >60 . Final Comment: eGFR (Estimated GFR) Units of measure: mL/min/1.73 meters squared eGFR is derived from the reexpressed MDRD Study equation using the following parameters: serum creatinine, age, gender and race. The creatinine assay has been calibrated to be traceable to IDMS. An eGFR <60 mL/min/1.73m2 for >3 months is consistent with chronic kidney disease. Refer to KDOQI guidelines for clinical interpretation. In patients with unstable renal function, e.g. those with acute kidney injury, the eGFR may not accurately reflect actual GFR. eGFR- Date Value Ref Range Status 03/24/2016 >60 Final P.O.C.T. RESULTS: POC done: Yes, See Lab Tab June 26, 2018 RADIOLOGIST NOTIFIED?: No ALLERGIES: Reviewed and unchanged CONTRAST ALLERGY: NO. PERIPHERAL IV ACCESS: Ambulatory: IV type: A peripheral IV was started in the Left antecubital site with a Angio cath: 22 gauge., Site assessment: Clean,Dry and Intact, Site disposition Discontinued RADIOLOGY DEPARTMENT: CT; Exam(s) Completed: Chest Abdomen Pelvis SIGNED BY: Klaudia Lassiter Ct June 26, 2018 12:[address] CHEST W IVCON Observed: 06/26/2018 Status: F Source: [place] 10:58 AM [facility] REPOSITORY * * *Final Report* * * DATE OF EXAM: Jun 26 2018 10:58AM [facility] 0539 - CT CHEST W IVCON / PROCEDURE REASON: multiple diagnoses * * * * Physician Interpretation * * * * EXAMINATION: CHEST CT WITH CONTRAST CLINICAL HISTORY: Elevated carcinoembryonic antigen Malignant neoplasm of rectum (HCC) Technique: Spiral CT acquisition of the chest from the thoracic inlet to the upper abdomen following IV contrast. MQ: CTCWR_5 Contrast: 150 mL Omnipaque [address] Dose-Length Product: 386.86 mGy*cm CT Dose Reduction Employed: Automated exposure control(AEC) and iterative recon Comparison: 02/01/2014 RESULT: Limitations: None. Lines, tubes, and devices: None. Lung parenchyma and pleura: There are calcified granulomata seen in the right middle lobe and left upper lobe series 6 image 56 and 54. Dependent atelectasis is noted at the lung bases. A 5 mm nodule at the left lung base is increased in size series 6 image 75 previously 3.5 mm. No pleural effusions are seen. Central airways appear patent. Thoracic inlet, heart, and mediastinum: No lymphadenopathy in the axillary, mediastinal, or hilar regions. The thoracic aorta and main pulmonary artery are normal in caliber. The cardiac chambers are normal in size. Coronary calcifications are present. Minimal pericardial fluid likely physiologic in nature. Bones and soft tissues: Mild degenerative changes are seen of the spine. Upper abdomen: See separate dictation IMPRESSION: Slight increased size of the left lower lobe pulmonary nodule. No consolidation is seen. Sap Portal Consultant: PSCB Transcribe Date/Time: Jun 26 2018 3:00P Dictated by : KIMBERLEE AWAN MD This examination was interpreted and the report reviewed and electronically signed by: KIMBERLEE AWAN MD on Jun 26 2018 3:36PM EST [id number] CT ABD/PEL W IVCON Observed: 06/26/2018 Status: F Source: [place] 10:58 AM [facility] REPOSITORY * * *Final Report* * * DATE OF EXAM: Jun 26 2018 10:58AM [facility] 0530 - CT ABD/PEL W IVCON / PROCEDURE REASON: multiple diagnoses * * * * Physician Interpretation * * * * EXAMINATION: CT ABDOMEN AND PELVIS WITH IV CONTRAST CLINICAL HISTORY: Elevated carcinoembryonic antigen Malignant neoplasm of rectum (HCC) Hx rectal ca,chemo,post rad tx,colon resection,ventral hernia repair w/mesh ch 02/01/14, ap 07/26/16 TECHNIQUE: CT of the abdomen and pelvis was performed using standard technique, scanning from just above the dome of the diaphragm to the symphysis pubis. MQ: CTAP_3 Contrast: IV: 150 ml of Omnipaque 300 Oral: 50 ml of 50ML Omnipaque [address] Radiation dose: Integrated Dose-length product (DLP) for this visit = 858.78 mGy*cm. CT Dose Reduction Employed: Automated exposure control(AEC) and iterative recon COMPARISON: 07/26/2016 CT exam. RESULT: Liver: Hepatic steatosis is noted. No hepatic mass lesion is seen. Biliary: No bile duct dilation. Gallbladder is nondistended. Spleen: No mass. No splenomegaly. Pancreas: No mass or duct dilation. Adrenals: No mass. Kidneys: The kidneys enhance symmetrically. Small renal cysts are seen bilaterally the largest of which is in the lower pole the left kidney measuring approximately 1.5 cm series 5 image 67. No hydronephrosis or enhancing renal mass is seen GI tract: No dilation or wall thickening. The appendix appears unremarkable. Lymph nodes: No abdominal or pelvic lymphadenopathy. Mesentery/Peritoneum: No ascites or mass. Retroperitoneum: No mass. Vasculature: The celiac axis and SMA are patent. The portal vein and branches, splenic vein, SMV, and hepatic veins are patent. The abdominal aorta is normal in caliber. Pelvis: No mass, ascites or fluid collection. Bladder appears unremarkable. Bones/Soft Tissues: Soft tissues appear unremarkable. Osseous structures are grossly unremarkable. Lower thorax: See separate dictation IMPRESSION: No lymphadenopathy or intra-abdominal mass lesion seen. Fatty infiltration of the liver and renal cysts. Sap Portal Consultant: JARET Transcribe Date/Time: Jun 26 2018 3:23P Dictated by : KIMBERLEE AWAN MD This examination was interpreted and the report reviewed and electronically signed by: KIMBERLEE AWAN MD on Jun 26 2018 3:53PM EST [id number] CEA Collected: 05/22/2018 Status: F Source: [place] 9:17 AM [facility] REPOSITORY TYPE CODE TESTS RESULT OUT OF RANGE REFERENCE UNITS LAB CEA 0.0-2.9 ng/mL High CEA 3.4 Result Comment: Test analyzed by the Breanne DxI method. Performed By: #### CEA #### [facility] [id number] [place], [place] [address] CEA Collected: 04/22/2018 Status: F Source: [place] 2:42 PM [facility] REPOSITORY TYPE CODE TESTS RESULT OUT OF RANGE REFERENCE UNITS LAB CEA 0.0-2.9 ng/mL High CEA 3.4 Result Comment: Test analyzed by the Breanne DxI method. Performed By: #### CEA #### [facility] [id number] [place], [place] [address] PROGRESS Observed: 04/22/2018 Status: COMPLETED Source: [place] 2:18 PM [facility] REPOSITORY HNO ID: [id number] Author: Camila Murdock) [place] Service: (none) Author Type: Nurse Practitioner Type: Progress Notes Filed: 04/23/2018 12:23 PM Note Text: Chief Complaint Patient presents with: Established Patient HPI: Eddie Longoria is a 52 year old male who presents here today for follow up rectal cancer. Per Dr. Flores's previous note: H/o previously in good health. He noted a change in bowel habits and went to his PCP. Was referred for colonoscopy. Had this done 08/13/2013 in [place]. There was a tumor at about 10 cm. Biopsy positive for an invasive moderately differentiated adenocarcinoma arising in association with tubulovillous adenoma. ? Was referred to CRS. ?? Proctoscopy revealed tumor at 10 cm. ?? CT chest showed indeterminate pulmonary nodules [address] scan of the abdomen and pelvis showed no evidence of metastatic disease. ?? MRI of the pelvis on 09/03/2013 showed mass in the upper rectum without invasion into the perirectal fat. Several perirectal LNs were noted which were indeterminate for malignant lymphadenopathy. ?? Underwent APR 09/16/2013 with anastomosis.?? SIGMOID RECTUM: COLON AND RECTUM:RESECTION, INCLUDING TRANSANAL DISK EXCISION OF RECTAL NEOPLASMS WORKSHEET: Specimen: Sigmoid colon Rectum Procedure: Rectal / rectosigmoid colon (low anterior resection) Primary Tumor Site: Rectum Additional Sites Involved by Tumor: None identified Macroscopic Tumor Perforation: Not identified Macroscopic Intactness of Mesorectum: Complete Histologic Type: Mucinous adenocarcinoma Histologic Grade: Low-grade (well-differentiated to moderately differentiated) Tumor Size: Greatest dimension: 9.5 cm Additional Dimension: 7.2 cm Additional Dimension: 1.9 cm Microscopic Tumor Extension: Tumor invades through the muscularis propria into the subserosal adipose tissue or the nonperitonealized pericolic or perirectal soft tissues but does not extend to the serosal surface All Margins Uninvolved By Invasive Carcinoma: All margins uninvolved by invasive carcinoma Distance of invasive carcinoma from closest margin: 2.5 cm Margin: Distal Proximal Margin: Uninvolved by invasive carcinoma - No adenoma or intraepithelial neoplasia/dysplasia identified Distal Margin: Uninvolved by invasive carcinoma - No adenoma or intraepithelial neoplasia/dysplasia identified Circumferential Radial Margin: Uninvolved by invasive carcinoma Mesenteric Margin: Uninvolved by invasive carcinoma Treatment Effect: No prior treatment Lymph-Vascular Invasion: Present Perineural Invasion: Present Tumor Deposits: Present Number of deposits: 1 Type of Polyp in which Invasive Carcinoma Arose: Tubulovillous adenoma Ancillary Studies: Microsatellite Instability-Addendum to follow TNM Descriptors: Not applicable Pathologic Staging (pTNM): pT3: Tumor invades through the muscularis propria into pericolorectal tissues Regional Lymph Nodes (pN): pN2a: Metastasis in 4 to 6 regional lymph nodes Number of nodes examined: 15 Number of nodes involved: 5 Distant Metastasis (pM): Not applicable Additional Pathologic Findings: Other: Two incidental hyperplastic polyps? No preoperative CEA. ? KEILA. ?? US revealed left below knee DVT. ? Started on Lovenox. ?? Received adjuvant FOLFOX. ? Cycle #5 was delayed due to neutropenia. ? Cycle #6 omitted due to prolonged thrombocytopenia. ?? Began radiation 02/28/14. ? Completed 50.4 Gy. ?? He had continued thrombocytopenia and Xeloda was held at 21.6 Gy. ? Completed first cycle Xeloda 06/06/14. ? Incisional hernia repair by Dr. Joseph on 09/26/14. ?? Colonoscopy done in December-Fazal. Next due in 3 years 12/2017. ? ?? S/p 1. Open right myofascial advancement flap. 2. Open left myofascial advancement flap. 3. Repair of recurrent incarcerated incisional hernia. ? 4. Implantation of 30 x 30 cm of Soft mesh. ? 5. Resection of skin and subcutaneous tissue. on 03/21/16 by SANDI HERRERA MD Recovered well per pt. ? No complaints. Colonoscopy done November 2017-Dr. Joseph. Pt. started running and has lost almost 45#. ? Appetite:too good?Energy level:fine Denies fevers or recent illness. Resp:denies cough or sob Cardiac:denies chest pain/palpitations GI:denies abd pain, n/v, moving bowels regularly :denies dysuria/hematuria Extrem:denies pain to back/bones/joints Neuro:neuropathy to toes they are ok now-they are worse in the cold. Skin:denies rashes/lesions Heme:denies bleeding The ROS is otherwise negative. Past medical history, appointments, medications, allergies reviewed. No changes. EXAM: BP 118/67 Pulse 64 Temp 37.1 ?C (98.8 ?F) (Oral) Wt 103.2 kg (227 lb 8 oz) BMI 32.64 kg/m? APPEARANCE Well appearing, alert, in no acute distress, well-hydrated, well nourished. HEART RRR with normal S1 and S2, no murmurs LUNG clear to auscultation LYMPH NODES No cervical lymphadenopathy, No supraclavicular lymphadenopathy and No axillary lymphadenopathy. ABDOMEN bowel sounds normoactive, no bruits, soft, non-tender, non-distended, without organomegaly or palpable masses EXTREMITIES No edema NEURO Awake, alert and oriented x 3, Normal gait and No involuntary motions. SKIN Skin color, texture, turgor normal, no suspicious rashes or lesions LABS: Component Latest Ref Rng AND Units 07/03/2016 02/19/2017 08/20/2017 03/02/2018 CEA 0.0 - 2.9 ng/mL 2.5 2.3 2.6 3.1 (H) ASSESSMENT/PLAN: 1. Rectal cancer (HCC) - ICD9: 154.1, ICD10: C20 pT3 pN2a M0 stage III rectal cancer. - ?No concerning findings on exam. - ?CT's as indicated. - Reviewed CEA with pt. - ?Colonoscopy due December 2022-Dr. Joseph. - Repeat CEA today. - ?Follow up in 6 months with CEA-pending today's CEA. - ?Pt. aware to call office with any questions/concerns. The patient indicates understanding of these issues and agrees with the plan. Camila Mancuso APRN.BAKARI CNOVSP Observed: 04/22/2018 Status: COMPLETED Source: [place] 2:00 PM [facility] REPOSITORY Visit (SP) Office ([place]) EDDIE LONGORIA ([id number]) 1965 M Date Time Provider Department 04/22/18 2:00 PM CAMILA MANCUSO (BAKARI) [place] During your visit today, we recorded the following information about you: Temperature Pulse Blood pressure Weight 98.8 degrees 64/minute 118/67 103.2 kg Camila Mancuso, MAKR.DEHYDRATOR OPERATOR 04/23/2018 12:23 PM Signed Chief Complaint Patient presents with: Established Patient HPI: Eddie Longoria is a 52 year old male who presents here today for follow up rectal cancer. Per Dr. Flores's previous note: H/o previously in good health. He noted a change in bowel habits and went to his PCP. Was referred for colonoscopy. Had this done 08/13/2013 in [place]. There was a tumor at about 10 cm. Biopsy positive for an invasive moderately differentiated adenocarcinoma arising in association with tubulovillous adenoma. ? Was referred to CRS. ?? Proctoscopy revealed tumor at 10 cm. ?? CT chest showed indeterminate pulmonary nodules [address] scan of the abdomen and pelvis showed no evidence of metastatic disease. ?? MRI of the pelvis on 09/03/2013 showed mass in the upper rectum without invasion into the perirectal fat. Several perirectal LNs were noted which were indeterminate for malignant lymphadenopathy. ?? Underwent APR 09/16/2013 with anastomosis.?? SIGMOID RECTUM: COLON AND RECTUM:RESECTION, INCLUDING TRANSANAL DISK EXCISION OF RECTAL NEOPLASMS WORKSHEET: Specimen: Sigmoid colon Rectum Procedure: Rectal / rectosigmoid colon (low anterior resection) Primary Tumor Site: Rectum Additional Sites Involved by Tumor: None identified Macroscopic Tumor Perforation: Not identified Macroscopic Intactness of Mesorectum: Complete Histologic Type: Mucinous adenocarcinoma Histologic Grade: Low-grade (well-differentiated to moderately differentiated) Tumor Size: Greatest dimension: 9.5 cm Additional Dimension: 7.2 cm Additional Dimension: 1.9 cm Microscopic Tumor Extension: Tumor invades through the muscularis propria into the subserosal adipose tissue or the nonperitonealized pericolic or perirectal soft tissues but does not extend to the serosal surface All Margins Uninvolved By Invasive Carcinoma: All margins uninvolved by invasive carcinoma Distance of invasive carcinoma from closest margin: 2.5 cm Margin: Distal Proximal Margin: Uninvolved by invasive carcinoma - No adenoma or intraepithelial neoplasia/dysplasia identified Distal Margin: Uninvolved by invasive carcinoma - No adenoma or intraepithelial neoplasia/dysplasia identified Circumferential Radial Margin: Uninvolved by invasive carcinoma Mesenteric Margin: Uninvolved by invasive carcinoma Treatment Effect: No prior treatment Lymph-Vascular Invasion: Present Perineural Invasion: Present Tumor Deposits: Present Number of deposits: 1 Type of Polyp in which Invasive Carcinoma Arose: Tubulovillous adenoma Ancillary Studies: Microsatellite Instability-Addendum to follow TNM Descriptors: Not applicable Pathologic Staging (pTNM): pT3: Tumor invades through the muscularis propria into pericolorectal tissues Regional Lymph Nodes (pN): pN2a: Metastasis in 4 to 6 regional lymph nodes Number of nodes examined: 15 Number of nodes involved: 5 Distant Metastasis (pM): Not applicable Additional Pathologic Findings: Other: Two incidental hyperplastic polyps? No preoperative CEA. ? KEILA. ?? US revealed left below knee DVT. ? Started on Lovenox. ?? Received adjuvant FOLFOX. ? Cycle #5 was delayed due to neutropenia. ? Cycle #6 omitted due to prolonged thrombocytopenia. ?? Began radiation 02/28/14. ? Completed 50.4 Gy. ?? He had continued thrombocytopenia and Xeloda was held at 21.6 Gy. ? Completed first cycle Xeloda 06/06/14. ? Incisional hernia repair by Dr. Joseph on 09/26/14. ?? Colonoscopy done in December-Fazal. Next due in 3 years 12/2017. ? ?? S/p 1. Open right myofascial advancement flap. 2. Open left myofascial advancement flap. 3. Repair of recurrent incarcerated incisional hernia. ? 4. Implantation of 30 x 30 cm of Soft mesh. ? 5. Resection of skin and subcutaneous tissue. on 03/21/16 by SANDI HERRERA MD Recovered well per pt. ? No complaints. Colonoscopy done November 2017-Dr. Joseph. Pt. started running and has lost almost 45#. ? Appetite:too good?Energy level:fine Denies fevers or recent illness. Resp:denies cough or sob Cardiac:denies chest pain/palpitations GI:denies abd pain, n/v, moving bowels regularly :denies dysuria/hematuria Extrem:denies pain to back/bones/joints Neuro:neuropathy to toes they are ok now-they are worse in the cold. Skin:denies rashes/lesions Heme:denies bleeding The ROS is otherwise negative. Past medical history, appointments, medications, allergies reviewed. No changes. EXAM: BP 118/67 Pulse 64 Temp 37.1 ?C (98.8 ?F) (Oral) Wt 103.2 kg (227 lb 8 oz) BMI 32.64 kg/m? APPEARANCE Well appearing, alert, in no acute distress, well- hydrated, well nourished. HEART RRR with normal S1 and S2, no murmurs LUNG clear to auscultation LYMPH NODES No cervical lymphadenopathy, No supraclavicular lymphadenopathy and No axillary lymphadenopathy. ABDOMEN bowel sounds normoactive, no bruits, soft, non-tender, non-distended, without organomegaly or palpable masses EXTREMITIES No edema NEURO Awake, alert and oriented x 3, Normal gait and No involuntary motions. SKIN Skin color, texture, turgor normal, no suspicious rashes or lesions LABS: Component Latest Ref Rng AND Units 07/03/2016 02/19/2017 08/20/2017 03/02/2018 CEA 0.0 - 2.9 ng/mL 2.5 2.3 2.6 3.1 (H) ASSESSMENT/PLAN: 1. Rectal cancer (HCC) - ICD9: 154.1, ICD10: C20 pT3 pN2a M0 stage III rectal cancer. - ?No concerning findings on exam. - ?CT's as indicated. - Reviewed CEA with pt. - ?Colonoscopy due December 2022-Dr. Joseph. - Repeat CEA today. - ?Follow up in 6 months with CEA-pending today's CEA. - ?Pt. aware to call office with any questions/concerns. The patient indicates understanding of these issues and agrees with the plan. Camila Mancuso APRN.DEHYDRATOR OPERATOR Referring Provider: CAMILA MANCUSO ([facility]) [[id number]] Allergies As of Date: 04/22/2018 Noted Allergy Reaction CODEINE 08/25/2013 10 - Anaphylaxis Comments: Had codeine when a teenager and had facial swelling. ALEVE (NAPROXEN SODIUM) 08/25/2013 8 - GI Upset ASPIRIN 08/25/2013 8 - GI Upset Date Reviewed: 04/22/2018 Reviewed by: Jeane Mcclain - Fully Assessed Reason for Visit: Established Patient [175] Primary Visit Diagnosis:Rectal cancer (HCC) [C20] Order(s):CEA BLD [SQCEA] Order #: [id number] FUTURE Follow-up and Disposition History Recorded Prescriptions as of 04/22/2018 Sig: MULTIVITAMIN TABLET Take 1 tablet by mouth once d* IBUPROFEN 200 MG TABLET Take 600 mg by mouth every 8 * OLMESARTAN 40 MG-AMLODIPINE 1* Take 1 tablet by mouth once d* Medication notes this encounter OTC PRODUCT >> Jeane Mcclain MA 04/22/2018 2:11 PM >> MOE MCDANIELJEANE FriApr 22, 2018 2:11 PM No longer taking. Problem List As Of Date 04/22/2018 Noted Resolved Rectal cancer (HCC) [C20] INVALID FOR*03/21/2016 DVT (deep venous thrombosis) (HCC) [I82.409] INVALID FOR*03/21/2016 Thrombocytopenia (HCC) [D69.6] INVALID FOR* Incisional hernia [K43.2] INVALID FOR*03/21/2016 Incisional hernia, without obstruction or gangr*INVALID FOR* Recurrent incisional hernia with incarceration *INVALID FOR*03/21/2016 Incisional hernia [K43.2] INVALID FOR* Rectal cancer (HCC) [C20] INVALID FOR* Encounter Status:Closed by CAMILA MANCUSO DEHYDRATOR OPERATOR on 04/23/18 CEA Collected: 03/02/2018 Status: F Source: [place] 3:11 PM [facility] REPOSITORY TYPE CODE TESTS RESULT OUT OF RANGE REFERENCE UNITS LAB CEA 0.0-2.9 ng/mL High CEA 3.1 Result Comment: Test analyzed by the Breanne DxI method. Performed By: #### CEA #### [facility] [address] [address] THYROID STIM. Collected: 12/26/2017 Status: F Source: [employer] 7:49 AM SYSTEM REPOSITORY TYPE CODE TESTS RESULT OUT OF RANGE REFERENCE UNITS LAB TSH4 0.358-3.740 uU/mL Normal Thyroid Stim. 1.400 Hormone Performed By: #### TSH4, CMP3, LIPD2, PSA3S, HEMDF #### [facility] [address] [place] [address] COMP METABOLIC PANEL Collected: 12/26/2017 Status: F Source: [employer] 7:49 AM SYSTEM REPOSITORY TYPE CODE TESTS RESULT OUT OF RANGE REFERENCE UNITS LAB NA3 135-145 mmol/L Sodium Normal 143 LAB K3 3.5-5.1 mmol/L Normal Potassium 3.8 LAB CL3 98-109 mmol/L Chloride Normal 106 LAB CO23 21-32 mmol/L Carbon Normal Dioxide 27 LAB ANIN3 NA Anion Gap 10 LAB GLUC3 70-100 mg/dL Glucose Normal 76 LAB BUN3 7-25 mg/dL Urea Normal Nitrogen 17 LAB CRET3 0.55-1.40 mg/dL Normal Creatinine 1.07 LAB GF3BR >60 mL/min eGFR > 60.0 LAB GF3WR >60 mL/min eGFR OTHER > 60.0 Result Comment: Source- MDRD equation with creatinine calibration to IDMS(NKDEP) eGFR not recommended for drug dose adjustment LAB CA3 8.2-10.1 mg/dL Calcium Normal 8.9 LAB ALB3 3.4-5.0 g/dL Albumin, Serum Normal 3.9 LAB TP3 6.4-8.2 g/dL Total Protein Normal 6.9 LAB BILT3 0.2-1.0 mg/dL Normal Bilirubin,Total 1.0 LAB ALKP3 45-117 U/L Alkaline Normal Phosphatase 64 LAB ALT3 12-78 U/L ALT (SGPT) Normal 33 LAB AST3 15-37 U/L AST (SGOT) Normal 26 Performed By: #### TSH4, CMP3, LIPD2, PSA3S, HEMDF #### [facility] [address] [place] [address] LIPID PANEL Collected: 12/26/2017 Status: F Source: [employer] 7:49 AM SYSTEM REPOSITORY TYPE CODE TESTS RESULT OUT OF RANGE REFERENCE UNITS LAB 3CHOL < 200 mg/dL Cholesterol Abnormal 268 LAB 3TRIG <150 mg/dL Normal Triglyceride 80 LAB HDLC 40-59 mg/dL Normal HDL Cholesterol 42 LAB LDL4 <100 mg/dL Low Density Abnormal Lipoprotein 210 LAB CHLHD NA Chol/HDL 6 Result Comment: Ref Range: < 3 Low Risk for CHD 3-6 Mod Risk for CHD > 6 High Risk for CHD Performed By: #### TSH4, CMP3, LIPD2, PSA3S, HEMDF #### [facility] [address] [place] [address] PROSTATE SPECIFIC AG Collected: 12/26/2017 Status: F Source: [facility] 7:49 AM SYSTEM REPOSITORY TYPE CODE TESTS RESULT OUT OF RANGE REFERENCE UNITS LAB 3PSAS < 4.000 ng/mL Normal Prostate 0.248 Specific Ag Screen Performed By: #### TSH4, CMP3, LIPD2, PSA3S, HEMDF #### [facility] [address] [place] [address] HEMOGRAM W/ AUTODIFF Collected: 12/26/2017 Status: F Source: [facility] 7:49 AM SYSTEM REPOSITORY TYPE CODE TESTS RESULT OUT OF REFERENCE UNITS RANGE LAB IWBC 3.6-10.7 10*3/uL WBC Normal 4.7 LAB RBC 4.40-5.90 10*6/uL RBC Normal 4.60 LAB HGB 13.0-18.0 g/dL Hemoglobin Normal 14.0 LAB HCT 40.0-52.0 % Hematocrit Normal 40.9 LAB MCV 80.0-98.0 fL MCV Normal 89.0 LAB MCH 26.0-34.0 pg MCH Normal 30.5 LAB MCHC 32.0-36.0 % MCHC Normal 34.2 LAB RDW 11.5-14.5 % RDW Normal 13.8 LAB PLT 140-440 10*3/uL Platelet Normal 164 LAB MPV 7.4-10.4 fL MPV Normal 9.1 LAB GRAN% 40.0-80.0 % Granulocytes Normal 61.5 LAB LYMP% 20.0-40.0 % Lymphocytes Normal 27.1 LAB MONO% 2.0-10.0 % Monocytes Normal 9.3 LAB EOS% 1.0-6.0 % Eosinophils Normal 1.7 LAB BAS% 0.0-2.0 % Basophils Normal 0.4 LAB ANC 1.8-7.0 10*3/uL Abs Normal Neutrophile Cnt 2.9 LAB ALC 1.0-4.3 10*3/uL Abs Lymph Cnt Normal 1.3 LAB AMC 0.0-0.8 10*3/uL Abs Monocyte Normal Cnt 0.4 LAB AEC 0.0-0.5 10*3/uL Abs Eosin Cnt Normal 0.1 LAB ABC 0.0-0.2 10*3/uL Abs Baso Cnt Normal 0.0 Performed By: #### TSH4, CMP3, LIPD2, PSA3S, HEMDF #### [facility] [address] [place] [address] NURSING PROG Observed: 11/28/2017 Status: COMPLETED Source: [place] 11:20 AM [facility] REPOSITORY HNO ID: [id number] Author: Kaley MaddenRn) EULOGIO Walker Service: Nursing Author Type: Registered Nurse Type: Nursing Progress Note Filed: 11/28/2017 11:21 AM Note Text: Patient did not experience a fall prior to discharge. Patient did not experience a burn prior to discharge. Kaley Walker RN PT ED Observed: 11/28/2017 Status: COMPLETED Source: [place] 10:52 AM [facility] REPOSITORY HNO ID: [id number] Author: Kaley MaddenRn) EULOGIO Walker Service: Nursing Author Type: Registered Nurse Type: Patient Education Filed: 11/28/2017 10:53 AM Note Text: POST OP LEARNING RESPONSE INSTRUCTION PROVIDED TO: Patient and Spouse METHOD OF INSTRUCTION: Written instruction - handouts Verbal instruction PATIENT / FAMILY RESPONSE: Verbalizes understanding of: INFECTION MANAGEMENT-Signs and symptoms of an infection and importance of contacting the physician PHYSICAL RESTRICTIONS-Physical restrictions and recommendations after discharge from the hospital POST-PROCEDURE INSTRUCTIONS-Correct actions to take to reduce post procedure complications PATIENT SAFETY PRINCIPLES WORSENING CONDITION-Signs and symptoms of a worsening condition that warrant a call to the physician FOLLOW-UP PLAN: Patient instructed to call with any further issues Follow up phone call. SUPPLEMENTAL MATERIAL: Procedure discharge instructions REFERRAL (RECOMMENDATION): None Electronically Signed By: Kaley Walker RN In Department: AMBULATORY SURGERY NURSING PROG Observed: 11/28/2017 Status: COMPLETED Source: [place] 10:43 AM [facility] REPOSITORY HNO ID: [id number] Author: Kaley Walker RN Service: Nursing Author Type: Registered Nurse Type: Nursing Progress Note Filed: 11/28/2017 10:43 AM Note Text: Dr. Joseph at bedside with patient and . Questions answered. Kaley Walker RN NURSING PROG Observed: 11/28/2017 Status: COMPLETED Source: [place] 10:27 AM [facility] HOSPITAL REPOSITORY HNO ID: [id number] Author: Rosalie MaddenRnNiels Mcclain RN Service: (none) Author Type: Registered Nurse Type: Nursing Progress Note Filed: 11/28/2017 10:28 AM Note Text: Patient did not experience a fall within the Intraoperative area. Patient did not experience a burn within the Intraoperative area. Rosalie Mcclain RN NURSING PROG Observed: 11/28/2017 Status: COMPLETED Source: [place] 10:05 AM [facility] REPOSITORY HNO ID: [id number] Author: Estela Redman RN Service: (none) Author Type: Registered Nurse Type: Nursing Progress Note Filed: 11/28/2017 10:11 AM Note Text: [facility] PRE-OP NURSING HAND OFF NOTE SBAR Hand off given to Rosalie Mcclain RN. Hand off was communicated verbally and at the patient's bedside and all questions were answered. FALLS/HURTADO Patient did not experience a fall within the Preoperative area. Patient did not experience a burn within the Preoperative area. Estela Redman RN PT ED Observed: 11/28/2017 Status: COMPLETED Source: [place] 9:38 AM [facility] REPOSITORY HNO ID: [id number] Author: Estela Redman RN Service: (none) Author Type: Registered Nurse Type: Patient Education Filed: 11/28/2017 9:39 AM Note Text: PRE OP LEARNING ASSESSMENT PROCEDURE/SURGERY: GI PROCEDURES: Colonoscopy READINESS TO LEARN COGNITIVE ABILITY: Alert and oriented MOTIVATION TO LEARN: Eager FAMILY SUPPORT: High - Very involved in pt care PATIENT LEARNS BEST BY: Multiple Methods FACTORS AFFECTING LEARNING: None PHYSICAL LIMITATIONS AFFECTING LEARNING: None Electronically Signed By: Estela Redman RN In Department: AMBULATORY SURGERY HISTORY PHYSICAL Observed: 11/28/2017 Status: COMPLETED Source: [place] 9:24 AM [facility] REPOSITORY HNO ID: [id number] Author: Gabino Joseph Service: General Surgery Author Type: Physician Type: HANDP Filed: 11/28/2017 9:24 AM Note Text: HISTORY AND PHYSICAL ? Eddie Longoria 1965 ? REFERRING PHYSICIAN: Susana Mendieta, * ? CHIEF COMPLAINT: colon consult ? HPI: The patient is a 51 year old male referred for endoscopy. Eddie notes a personal history of rectal cancer and is due for surveillance colonoscopy, last was in [address] Joseph. He denies any change in bowel habits, weight changes, blood in stools, black tarry stools or abdominal pain. The patient notes no history of upper GI complaints. ? The patient is being seen by me today at the request of Dr. Adriel Morocho for my opinion and advice regarding surveillance colonoscopy. Past medical history is significant for rectal cancer as noted above, as well as hypertension, hyperlipidemia, and a prior DVT which occurred while on chemotherapy. Patient denies any cardiac or respiratory complaints currently, and denies any problems with sedation in the past. ? ? PAST?MEDICAL?HISTORY PAST MEDICAL HISTORY Diagnosis Date - Bowel disease ? ? rectal ca - Hyperlipidemia ? - Hypertension ? - Rectal cancer (HCC) ? ? ? PAST?SURGICAL?HISTORY PAST SURGICAL HISTORY Procedure Laterality Date - COLONOSCOP W/ OR W/O BRSH SPEC ? 12/23/14 ? clean anastomosis - 3 year follow up - COLONOSCOPY W/BX (COLON) ? 08/13/13 - HERNIA REPAIR HX ? 03/2016 - LAP INC HERNIA REPAIR ? 09/26/14 ? 10x15 and [id number] mesh - PAST SURGICAL HISTORY OF ? 09/16/2013 ? colon/ rectum resection - TUNNEL VAD W SUB Q PORT >=5 ? 11/09/13 ? Left subclavian ? ? ? CURRENT?MEDICATIONS ? Current Outpatient Prescriptions: OTC PRODUCT Nutrigenix: Take one tablet by mouth once daily. multivitamin tablet Take 1 tablet by mouth once daily. ibuprofen (MOTRIN) 200 mg tablet Take 600 mg by mouth every 8 hours as needed. Kvvjfjmrka-snDTIDOzas-OCIY (TRIBENZOR) 40-10-25 mg tab Take 1 tablet by mouth once daily. ? No current facility-administered medications for this visit. ? ALLERGIES: Codeine; Aleve [Naproxen Sodium]; Aspirin ? PERSONAL HISTORY: SOCIAL?HISTORY Social History Marital status: Spouse name: Years of education: Number of children: ? Social History Main Topics Smoking status: Former Smoker Packs/day: 1.00 Years: 10.00 Types: Cigarettes Quit date: 08/04/1987 Smokeless status: Never Used Alcohol use: No Drug use: No ? FAMILY HISTORY: FAMILY?HISTORY FAMILY HISTORY Problem Relation Age of Onset - renal failure [Other] [OTHER] Father ? ? ? father at young age ude to kidney failure. - Breast Cancer Mother ? ? ? REVIEW OF SYMPTOMS: The review of systems data was entered by the nurse and reviewed by me ? Nursing Notes: Brigitte Kevin LPN 11/05/2017 3:15 PM Signed REVIEW OF SYSTEMS: General: The patient denies fatigue, denies weight loss, denies weight gain, denies feeling hot, and denies feelings of cold. Eyes: The patient denies glaucoma, denies eye injury/surgery, wears glasses or contacts. Ear/Nose/Throat: The patient denies allergies, denies hayfever, denies ear infections, and denies bloody noses. Cardiovascular: The patient denies chest pain, denies heart disease, denies high blood pressure,denies cardiac stent, denies prior heart attack, denies irregular heart beat, denies high cholesterol, denies poor circulation, denies heart failure, other cardiac issues, denies claudication, denies cold feet, denies peripheral arterial stent. Respiratory: The patient denies tuberculosis, denies pneumonia, denies frequent cough, denies pulmonary embolism, denies shortness of breath, and denies coughing up blood. Gastrointestinal: The patient denies difficulty swallowing, denies acid reflux, denies ulcers, denies vomiting, denies jaundice/hepatitis, denies gallbladder problems, denies black or tarry stools, denies hemorrhoids, denies bleeding from rectum, denies diverticulitis, denies constipation, denies diarrhea, denies loss of stool control, and denies hernias. Kidney/Bladder: The patient denies kidney stones, denies urine infections, and denies bloody urine. Skin: The patient denies a history of skin cancer, denies bleeding/changing moles, and denies a history of skin rash. Neurologic: The patient denies a history of epilepsy/convulsions, denies headaches, denies head/spinal injuries, and denies stroke/TIA. Psychiatric: The patient denies psychiatric medications, denies depression, and denies voices, denies substance abuse. Endocrine: The patient denies thyroid disorders, denies diabetes, and denies hormonal problems. Hematologic: The patient denies a history of bruising, denies bleeding, and denies anemia, denies blood clots. Infections: The patient denies a history of measles and mumps, denies rheumatic fever, and denies sexually transmitted diseases. Musculoskeletal: The patient denies back pain/injury, denies back problems, denies sciatica, denies knee/foot trouble, denies arthritis, or denies gout. ? ? When was patient's last Mammogram screening? N/A ? Last Colonoscopy: Fazal 12/2014 ? Brigitte Nevarez PA-C ? ?? PHYSICAL EXAMINATION: ? General: The patient is 51 year old male, well nourished, well hydrated in no acute distress. The patient is oriented to time, place, and person. ? VITALS: Blood pressure 136/70, pulse 60, resp. rate 18, height 177.8 cm (5' 10), weight 109.3 kg (241 lb). Body mass index is 34.58 kg/(m2). ? HEENT: Normal cephalic, ataumatic, pupils are equally round, sclera are anicteric, mucous membranes are moist, oropharynx is clear. Neck has no masses, asymmetry or lymphadenopathy. ? Respiratory: Clear to auscultation and percussion. Normal respiratory excursion and pattern. ? Cardiac: Examination is regular rate and rhythm. ? Abdominal exam: Soft, nontender, with no palpable masses. No hepatosplenomegaly. No palpable hernias. ? Rectal exam: exam deferred ? Extremities: no clubbing, cyanosis or edema. No adenopathy. ? Other: ? LABORATORY VALUES: As Noted ? RADIOLOGIC STUDIES: As Noted ? Assessment IMPRESSION: personal history of rectal cancer, need for surveillance colonoscopy ? PLAN: We will plan for surveillance colonoscopy. Date of last colonoscopy was 12/23/14 with 3 year follow-up recommended. Patient wishes to have procedure earlier than 12/23-he has been instructed to contact his insurance to make sure this will still be covered if prior to 12/23/17. We discussed the risks and benefits of the planned endoscopy. I have informed the patient that complications can occur including failure to complete the endoscopy and perforation. The patient had the opportunity to ask questions concerning the planned endoscopy. My staff has also explained the procedure to the patient in understandable terms and has given the patient printed material concerning the procedure. The patient freely consents to surgery. ? I plan to use golytely bowel preparation for endoscopy ? Diagnoses: (Z85.048) Personal history of rectal cancer (primary encounter diagnosis) ? My findings have been communicated to Dr. Adriel Morocho via shared medical record. This note will be forwarded to Dr. Susana Morocho, DEHYDRATOR OPERATOR. ?? Return to Clinic: The patient is instructed to follow-up with me 1 week post operatively. ? Margot Nevarez PA-C SURGICAL PATHOLOGY Observed: 11/28/2017 Status: F Source: [place] 12:00 AM [facility] REPOSITORY Specimen originated from [facility] Specimen #: [id number] Submitting Physician: GABINO JOSEPH ([id number]) FINAL DIAGNOSIS Colon, descending polyp, biopsy - Cauterized hyperplastic polyp. - No adenomatous epithelium identified. /gp 12/01/2017 Aaron Tilley M.D., Ph.D. (Electronic Signature) SPECIMEN SUBMITTED A: DESCENDING COLON POLYP CLINICAL DATA Z12.11 HOT SNARE GROSS DESCRIPTION A. Received in formalin are two pieces of kowalski, soft tissue aggregating to 0.6 x 0.2 x 0.2 cm. Totally submitted in one cassette. Gross examination performed at [facility], [address] [place] [address] 11/28/2017 9:54:34 PM Date of Report: 12/01/2017 Date of Procedure: 11/28/2017 Date of Receipt: 11/28/2017 Submitted by: GABINO JOSEPH ([id number]) Location: [id number] Diagnostic interpretation performed at [place] [address]. PROGRESS Observed: 11/06/2017 Status: COMPLETED Source: [place] 1:46 PM [facility] REPOSITORY HNO ID: [id number] Author: Margot Nevarez (Pa) Service: (none) Author Type: Physician Players Assistant Type: Progress Notes Filed: 11/06/2017 3:01 PM Note Text: HISTORY AND PHYSICAL Eddie Longoria 1965 REFERRING PHYSICIAN: Susana Mendieta, * CHIEF COMPLAINT: colon consult HPI: The patient is a 51 year old male referred for endoscopy. Eddie notes a personal history of rectal cancer and is due for surveillance colonoscopy, last was in [address] Joseph. He denies any change in bowel habits, weight changes, blood in stools, black tarry stools or abdominal pain. The patient notes no history of upper GI complaints. The patient is being seen by me today at the request of Dr. Adriel Morocho for my opinion and advice regarding surveillance colonoscopy. Past medical history is significant for rectal cancer as noted above, as well as hypertension, hyperlipidemia, and a prior DVT which occurred while on chemotherapy. Patient denies any cardiac or respiratory complaints currently, and denies any problems with sedation in the past. PAST MEDICAL HISTORY Diagnosis Date - Bowel disease rectal ca - Hyperlipidemia - Hypertension - Rectal cancer (HCC) PAST SURGICAL HISTORY Procedure Laterality Date - COLONOSCOP W/ OR W/O BRSH SPEC 12/23/14 clean anastomosis - 3 year follow up - COLONOSCOPY W/BX (COLON) 08/13/13 - HERNIA REPAIR HX 03/2016 - LAP INC HERNIA REPAIR 09/26/14 10x15 and [id number] mesh - PAST SURGICAL HISTORY OF 09/16/2013 colon/ rectum resection - TUNNEL VAD W SUB Q PORT >=5 11/09/13 Left subclavian Current Outpatient Prescriptions: OTC PRODUCT Nutrigenix: Take one tablet by mouth once daily. multivitamin tablet Take 1 tablet by mouth once daily. ibuprofen (MOTRIN) 200 mg tablet Take 600 mg by mouth every 8 hours as needed. Vappqndsna-ivCFDWZzpp-ELKK (TRIBENZOR) 40-10-25 mg tab Take 1 tablet by mouth once daily. No current facility-administered medications for this visit. ALLERGIES: Codeine; Aleve [Naproxen Sodium]; Aspirin PERSONAL HISTORY: Social History Marital status: Spouse name: Years of education: Number of children: Social History Main Topics Smoking status: Former Smoker Packs/day: 1.00 Years: 10.00 Types: Cigarettes Quit date: 08/04/1987 Smokeless status: Never Used Alcohol use: No Drug use: No FAMILY HISTORY: FAMILY HISTORY Problem Relation Age of Onset - renal failure [Other] [OTHER] Father father at young age ude to kidney failure. - Breast Cancer Mother REVIEW OF SYMPTOMS: The review of systems data was entered by the nurse and reviewed by ms Nursing Notes: Brigitte Herberth ESCOBEDO 11/05/2017 3:15 PM Signed REVIEW OF SYSTEMS: General: The patient denies fatigue, denies weight loss, denies weight gain, denies feeling hot, and denies feelings of cold. Eyes: The patient denies glaucoma, denies eye injury/surgery, wears glasses or contacts. Ear/Nose/Throat: The patient denies allergies, denies hayfever, denies ear infections, and denies bloody noses. Cardiovascular: The patient denies chest pain, denies heart disease, denies high blood pressure,denies cardiac stent, denies prior heart attack, denies irregular heart beat, denies high cholesterol, denies poor circulation, denies heart failure, other cardiac issues, denies claudication, denies cold feet, denies peripheral arterial stent. Respiratory: The patient denies tuberculosis, denies pneumonia, denies frequent cough, denies pulmonary embolism, denies shortness of breath, and denies coughing up blood. Gastrointestinal: The patient denies difficulty swallowing, denies acid reflux, denies ulcers, denies vomiting, denies jaundice/hepatitis, denies gallbladder problems, denies black or tarry stools, denies hemorrhoids, denies bleeding from rectum, denies diverticulitis, denies constipation, denies diarrhea, denies loss of stool control, and denies hernias. Kidney/Bladder: The patient denies kidney stones, denies urine infections, and denies bloody urine. Skin: The patient denies a history of skin cancer, denies bleeding/changing moles, and denies a history of skin rash. Neurologic: The patient denies a history of epilepsy/convulsions, denies headaches, denies head/spinal injuries, and denies stroke/TIA. Psychiatric: The patient denies psychiatric medications, denies depression, and denies voices, denies substance abuse. Endocrine: The patient denies thyroid disorders, denies diabetes, and denies hormonal problems. Hematologic: The patient denies a history of bruising, denies bleeding, and denies anemia, denies blood clots. Infections: The patient denies a history of measles and mumps, denies rheumatic fever, and denies sexually transmitted diseases. Musculoskeletal: The patient denies back pain/injury, denies back problems, denies sciatica, denies knee/foot trouble, denies arthritis, or denies gout. When was patient's last Mammogram screening? N/A Last Colonoscopy: Fazal 12/2014 Brigitte Nevarez PA-C PHYSICAL EXAMINATION: General: The patient is 51 year old male, well nourished, well hydrated in no acute distress. The patient is oriented to time, place, and person. VITALS: Blood pressure 136/70, pulse 60, resp. rate 18, height 177.8 cm (5' 10), weight 109.3 kg (241 lb). Body mass index is 34.58 kg/(m2). HEENT: Normal cephalic, ataumatic, pupils are equally round, sclera are anicteric, mucous membranes are moist, oropharynx is clear. Neck has no masses, asymmetry or lymphadenopathy. Respiratory: Clear to auscultation and percussion. Normal respiratory excursion and pattern. Cardiac: Examination is regular rate and rhythm. Abdominal exam: Soft, nontender, with no palpable masses. No hepatosplenomegaly. No palpable hernias. Rectal exam: exam deferred Extremities: no clubbing, cyanosis or edema. No adenopathy. Other: LABORATORY VALUES: As Noted RADIOLOGIC STUDIES: As Noted Assessment IMPRESSION: personal history of rectal cancer, need for surveillance colonoscopy PLAN: We will plan for surveillance colonoscopy. Date of last colonoscopy was 12/23/14 with 3 year follow-up recommended. Patient wishes to have procedure earlier than 12/23-he has been instructed to contact his insurance to make sure this will still be covered if prior to 12/23/17. We discussed the risks and benefits of the planned endoscopy. I have informed the patient that complications can occur including failure to complete the endoscopy and perforation. The patient had the opportunity to ask questions concerning the planned endoscopy. My staff has also explained the procedure to the patient in understandable terms and has given the patient printed material concerning the procedure. The patient freely consents to surgery. I plan to use golytely bowel preparation for endoscopy Diagnoses: (Z85.048) Personal history of rectal cancer (primary encounter diagnosis) My findings have been communicated to Dr. Adriel Morocho via shared medical record. This note will be forwarded to Dr. Susana Morocho, DEHYDRATOR OPERATOR. Return to Clinic: The patient is instructed to follow-up with me 1 week post operatively. IGOR Mendez Observed: 11/05/2017 Status: COMPLETED Source: [place] 3:30 PM [facility] REPOSITORY Office Visit (GENSWS) EDDIE LONGORIA ([id number]) 1965 M Date Time Provider Department 11/05/17 3:30 PM MARGOT NEVAREZ) MEGANS During your visit today, we recorded the following information about you: Pulse Respiration Blood pressure Weight 60/minute 18/minute 136/70 109.3 kg Height 1.778 m Brigitte Kevin GREGG 11/05/2017 3:15 PM Signed REVIEW OF SYSTEMS: General: The patient denies fatigue, denies weight loss, denies weight gain, denies feeling hot, and denies feelings of cold. Eyes: The patient denies glaucoma, denies eye injury/surgery, wears glasses or contacts. Ear/Nose/Throat: The patient denies allergies, denies hayfever, denies ear infections, and denies bloody noses. Cardiovascular: The patient denies chest pain, denies heart disease, denies high blood pressure,denies cardiac stent, denies prior heart attack, denies irregular heart beat, denies high cholesterol, denies poor circulation, denies heart failure, other cardiac issues, denies claudication, denies cold feet, denies peripheral arterial stent. Respiratory: The patient denies tuberculosis, denies pneumonia, denies frequent cough, denies pulmonary embolism, denies shortness of breath, and denies coughing up blood. Gastrointestinal: The patient denies difficulty swallowing, denies acid reflux, denies ulcers, denies vomiting, denies jaundice/hepatitis, denies gallbladder problems, denies black or tarry stools, denies hemorrhoids, denies bleeding from rectum, denies diverticulitis, denies constipation, denies diarrhea, denies loss of stool control, and denies hernias. Kidney/Bladder: The patient denies kidney stones, denies urine infections, and denies bloody urine. Skin: The patient denies a history of skin cancer, denies bleeding/changing moles, and denies a history of skin rash. Neurologic: The patient denies a history of epilepsy/convulsions, denies headaches, denies head/spinal injuries, and denies stroke/TIA. Psychiatric: The patient denies psychiatric medications, denies depression, and denies voices, denies substance abuse. Endocrine: The patient denies thyroid disorders, denies diabetes, and denies hormonal problems. Hematologic: The patient denies a history of bruising, denies bleeding, and denies anemia, denies blood clots. Infections: The patient denies a history of measles and mumps, denies rheumatic fever, and denies sexually transmitted diseases. Musculoskeletal: The patient denies back pain/injury, denies back problems, denies sciatica, denies knee/foot trouble, denies arthritis, or denies gout. When was patient's last Mammogram screening? N/A Last Colonoscopy: Fazal 12/2014 Brigitte Nevarez PA-C 11/06/2017 3:01 PM Signed HISTORY AND PHYSICAL Eddie Longoria 1965 REFERRING PHYSICIAN: Susana Mendieta, * CHIEF COMPLAINT: colon consult HPI: The patient is a 51 year old male referred for endoscopy. Eddie notes a personal history of rectal cancer and is due for surveillance colonoscopy, last was in [address] Joseph. He denies any change in bowel habits, weight changes, blood in stools, black tarry stools or abdominal pain. The patient notes no history of upper GI complaints. The patient is being seen by me today at the request of Dr. Adriel Morocho for my opinion and advice regarding surveillance colonoscopy. Past medical history is significant for rectal cancer as noted above, as well as hypertension, hyperlipidemia, and a prior DVT which occurred while on chemotherapy. Patient denies any cardiac or respiratory complaints currently, and denies any problems with sedation in the past. PAST MEDICAL HISTORY Diagnosis Date - Bowel disease rectal ca - Hyperlipidemia - Hypertension - Rectal cancer (HCC) PAST SURGICAL HISTORY Procedure Laterality Date - COLONOSCOP W/ OR W/O BRSH SPEC 12/23/14 clean anastomosis - 3 year follow up - COLONOSCOPY W/BX (COLON) 08/13/13 - HERNIA REPAIR HX 03/2016 - LAP INC HERNIA REPAIR 09/26/14 10x15 and [id number] mesh - PAST SURGICAL HISTORY OF 09/16/2013 colon/ rectum resection - TUNNEL VAD W SUB Q PORT ANDgt;=5 11/09/13 Left subclavian Current Outpatient Prescriptions: OTC PRODUCT Nutrigenix: Take one tablet by mouth once daily. multivitamin tablet Take 1 tablet by mouth once daily. ibuprofen (MOTRIN) 200 mg tablet Take 600 mg by mouth every 8 hours as needed. Amxyqvgxuw-fgMRREYqgm-GPKU (TRIBENZOR) 40-10-25 mg tab Take 1 tablet by mouth once daily. No current facility-administered medications for this visit. ALLERGIES: Codeine; Aleve [Naproxen Sodium]; Aspirin PERSONAL HISTORY: Social History Marital status: Spouse name: Years of education: Number of children: Social History Main Topics Smoking status: Former Smoker Packs/day: 1.00 Years: 10.00 Types: Cigarettes Quit date: 08/04/1987 Smokeless status: Never Used Alcohol use: No Drug use: No FAMILY HISTORY: FAMILY HISTORY Problem Relation Age of Onset - renal failure [Other] [OTHER] Father father at young age ude to kidney failure. - Breast Cancer Mother REVIEW OF SYMPTOMS: The review of systems data was entered by the nurse and reviewed by ms Nursing Notes: Brigitte Kevin LPN 11/05/2017 3:15 PM Signed REVIEW OF SYSTEMS: General: The patient denies fatigue, denies weight loss, denies weight gain, denies feeling hot, and denies feelings of cold. Eyes: The patient denies glaucoma, denies eye injury/surgery, wears glasses or contacts. Ear/Nose/Throat: The patient denies allergies, denies hayfever, denies ear infections, and denies bloody noses. Cardiovascular: The patient denies chest pain, denies heart disease, denies high blood pressure,denies cardiac stent, denies prior heart attack, denies irregular heart beat, denies high cholesterol, denies poor circulation, denies heart failure, other cardiac issues, denies claudication, denies cold feet, denies peripheral arterial stent. Respiratory: The patient denies tuberculosis, denies pneumonia, denies frequent cough, denies pulmonary embolism, denies shortness of breath, and denies coughing up blood. Gastrointestinal: The patient denies difficulty swallowing, denies acid reflux, denies ulcers, denies vomiting, denies jaundice/hepatitis, denies gallbladder problems, denies black or tarry stools, denies hemorrhoids, denies bleeding from rectum, denies diverticulitis, denies constipation, denies diarrhea, denies loss of stool control, and denies hernias. Kidney/Bladder: The patient denies kidney stones, denies urine infections, and denies bloody urine. Skin: The patient denies a history of skin cancer, denies bleeding/changing moles, and denies a history of skin rash. Neurologic: The patient denies a history of epilepsy/convulsions, denies headaches, denies head/spinal injuries, and denies stroke/TIA. Psychiatric: The patient denies psychiatric medications, denies depression, and denies voices, denies substance abuse. Endocrine: The patient denies thyroid disorders, denies diabetes, and denies hormonal problems. Hematologic: The patient denies a history of bruising, denies bleeding, and denies anemia, denies blood clots. Infections: The patient denies a history of measles and mumps, denies rheumatic fever, and denies sexually transmitted diseases. Musculoskeletal: The patient denies back pain/injury, denies back problems, denies sciatica, denies knee/foot trouble, denies arthritis, or denies gout. When was patient's last Mammogram screening? N/A Last Colonoscopy: [facility] 12/2014 Brigitte Nevarez PA-C PHYSICAL EXAMINATION: General: The patient is 51 year old male, well nourished, well hydrated in no acute distress. The patient is oriented to time, place, and person. VITALS: Blood pressure 136/70, pulse 60, resp. rate 18, height 177.8 cm (5' 10ANDquot;), weight 109.3 kg (241 lb). Body mass index is 34.58 kg/(m2). HEENT: Normal cephalic, ataumatic, pupils are equally round, sclera are anicteric, mucous membranes are moist, oropharynx is clear. Neck has no masses, asymmetry or lymphadenopathy. Respiratory: Clear to auscultation and percussion. Normal respiratory excursion and pattern. Cardiac: Examination is regular rate and rhythm. Abdominal exam: Soft, nontender, with no palpable masses. No hepatosplenomegaly. No palpable hernias. Rectal exam: exam deferred Extremities: no clubbing, cyanosis or edema. No adenopathy. Other: LABORATORY VALUES: As Noted RADIOLOGIC STUDIES: As Noted Assessment IMPRESSION: personal history of rectal cancer, need for surveillance colonoscopy PLAN: We will plan for surveillance colonoscopy. Date of last colonoscopy was 12/23/14 with 3 year follow-up recommended. Patient wishes to have procedure earlier than 12/23-he has been instructed to contact his insurance to make sure this will still be covered if prior to 12/23/17. We discussed the risks and benefits of the planned endoscopy. I have informed the patient that complications can occur including failure to complete the endoscopy and perforation. The patient had the opportunity to ask questions concerning the planned endoscopy. My staff has also explained the procedure to the patient in understandable terms and has given the patient printed material concerning the procedure. The patient freely consents to surgery. I plan to use golytely bowel preparation for endoscopy Diagnoses: (Z85.048) Personal history of rectal cancer (primary encounter diagnosis) My findings have been communicated to Dr. Adriel Morocho via shared medical record. This note will be forwarded to Dr. Susana Morocho, DEHYDRATOR OPERATOR. Return to Clinic: The patient is instructed to follow-up with me 1 week post operatively. Margot Nevarez PA-C Referring Provider: SUSANA MENDIETA [[id number]] Allergies As of Date: 11/05/2017 Noted Allergy Reaction CODEINE 08/25/2013 10 - Anaphylaxis Comments: Had codeine when a teenager and had facial swelling. ALEVE (NAPROXEN SODIUM) 08/25/2013 8 - GI Upset ASPIRIN 08/25/2013 8 - GI Upset Date Reviewed: 11/05/2017 Reviewed by: Brigitte Kevin LPN - Fully Assessed Reason for Visit: colon consult [Other] Primary Visit Diagnosis:Personal history of rectal cancer [Z85.048] Order(s):[] peg 3350-Electrolytes (GOLYTELY) 236-22.74-6.74 -5.86 gram suspensionTake 4,000 mL by mouth one time only for 1 dose.Disp: 1 BottleRfl: 0 COLONOSCOPY, SCREENING, HIGH RISK [[id number]] Order #: [id number] FUTURE Prescriptions as of 11/05/2017 Sig: PEG 3350-ELECTROLYTES 236 GRA* Take 4,000 mL by mouth one ti* OTC PRODUCT Nutrigenix: Take one tablet b* MULTIVITAMIN TABLET Take 1 tablet by mouth once d* IBUPROFEN 200 MG TABLET Take 600 mg by mouth every 8 * OLMESARTAN 40 MG-AMLODIPINE 1* Take 1 tablet by mouth once d* Problem List As Of Date 11/05/2017 Noted Resolved Rectal cancer (HCC) [C20] INVALID FOR*03/21/2016 DVT (deep venous thrombosis) (HCC) [I82.409] INVALID FOR*03/21/2016 Thrombocytopenia (HCC) [D69.6] INVALID FOR* Incisional hernia [K43.2] INVALID FOR*03/21/2016 Incisional hernia, without obstruction or gangr*INVALID FOR* Recurrent incisional hernia with incarceration *INVALID FOR*03/21/2016 Incisional hernia [K43.2] INVALID FOR* Rectal cancer (HCC) [C20] INVALID FOR* Visit Notes: >> Brigitte Kevin LPN FriNov 05, 2017 3:14 PM Status: Signed REVIEW OF SYSTEMS: General: The patient denies fatigue, denies weight loss, denies weight gain, denies feeling hot, and denies feelings of cold. Eyes: The patient denies glaucoma, denies eye injury/surgery, wears glasses or contacts. Ear/Nose/Throat: The patient denies allergies, denies hayfever, denies ear infections, and denies bloody noses. Cardiovascular: The patient denies chest pain, denies heart disease, denies high blood pressure,denies cardiac stent, denies prior heart attack, denies irregular heart beat, denies high cholesterol, denies poor circulation, denies heart failure, other cardiac issues, denies claudication, denies cold feet, denies peripheral arterial stent. Respiratory: The patient denies tuberculosis, denies pneumonia, denies frequent cough, denies pulmonary embolism, denies shortness of breath, and denies coughing up blood. Gastrointestinal: The patient denies difficulty swallowing, denies acid reflux, denies ulcers, denies vomiting, denies jaundice/hepatitis, denies gallbladder problems, denies black or tarry stools, denies hemorrhoids, denies bleeding from rectum, denies diverticulitis, denies constipation, denies diarrhea, denies loss of stool control, and denies hernias. Kidney/Bladder: The patient denies kidney stones, denies urine infections, and denies bloody urine. Skin: The patient denies a history of skin cancer, denies bleeding/changing moles, and denies a history of skin rash. Neurologic: The patient denies a history of epilepsy/convulsions, denies headaches, denies head/spinal injuries, and denies stroke/TIA. Psychiatric: The patient denies psychiatric medications, denies depression, and denies voices, denies substance abuse. Endocrine: The patient denies thyroid disorders, denies diabetes, and denies hormonal problems. Hematologic: The patient denies a history of bruising, denies bleeding, and denies anemia, denies blood clots. Infections: The patient denies a history of measles and mumps, denies rheumatic fever, and denies sexually transmitted diseases. Musculoskeletal: The patient denies back pain/injury, denies back problems, denies sciatica, denies knee/foot trouble, denies arthritis, or denies gout. When was patient's last Mammogram screening? N/A Last Colonoscopy: [facility] 12/2014 Brigitte Kevin TEXTILE SLITTING MACHINE OPERATOR Prescriptions ordered this encounter Disp Refills Start End PEG 3350-ELECTROLYTES 236 GRAM-22.74* 1 Javier* 0 11/05/2017 11/05/2017 Route: ORAL Sig: Take 4,000 mL by mouth one time only for 1 dose. Follow-up and Disposition History Recorded Encounter Status:Closed by MARGOT NEVAREZ PA-C on 11/06/17 HOSP Observed: 11/05/2017 Status: COMPLETED Source: [place] 12:00 AM [facility] REPOSITORY Patient:Eddie Longoria MRN: <[id number]> Height:5' 10(1.778 m) Weight:241 lb (109.317 kg) Outpatient Medications as of 11/28/17: OTC PRODUCT multivitamin tablet ibuprofen (MOTRIN) 200 mg tablet Huuwovfjvq-oqLVXZAcgg-OVOP (TRIBENZOR) 40-10-25 mg tab Admission/Clinic Administered Medications as of 11/28/17: lactated ringers infusion Problem List: Thrombocytopenia (HCC) [D69.6] Incisional hernia, without obstruction or gangrene [K43.2] Incisional hernia [K43.2] Rectal cancer (HCC) [C20] Allergies: Codeine Aleve [Naproxen Sodium] Aspirin Date Verified: 11/28/17 Lab Values No results within the last 30 days for the following basenames: K,HCT Progress Notes ([facility]): Praneethjustyn Hurd Surg Coord 11/05/2017 4:41 PM Signed 11-28-2017 Colon Praneeth Henning Surg Coord Progress Notes ([facility]): Brigitte Kevin LPN 11/05/2017 3:15 PM Signed REVIEW OF SYSTEMS: General: The patient denies fatigue, denies weight loss, denies weight gain, denies feeling hot, and denies feelings of cold. Eyes: The patient denies glaucoma, denies eye injury/surgery, wears glasses or contacts. Ear/Nose/Throat: The patient denies allergies, denies hayfever, denies ear infections, and denies bloody noses. Cardiovascular: The patient denies chest pain, denies heart disease, denies high blood pressure,denies cardiac stent, denies prior heart attack, denies irregular heart beat, denies high cholesterol, denies poor circulation, denies heart failure, other cardiac issues, denies claudication, denies cold feet, denies peripheral arterial stent. Respiratory: The patient denies tuberculosis, denies pneumonia, denies frequent cough, denies pulmonary embolism, denies shortness of breath, and denies coughing up blood. Gastrointestinal: The patient denies difficulty swallowing, denies acid reflux, denies ulcers, denies vomiting, denies jaundice/hepatitis, denies gallbladder problems, denies black or tarry stools, denies hemorrhoids, denies bleeding from rectum, denies diverticulitis, denies constipation, denies diarrhea, denies loss of stool control, and denies hernias. Kidney/Bladder: The patient denies kidney stones, denies urine infections, and denies bloody urine. Skin: The patient denies a history of skin cancer, denies bleeding/changing moles, and denies a history of skin rash. Neurologic: The patient denies a history of epilepsy/convulsions, denies headaches, denies head/spinal injuries, and denies stroke/TIA. Psychiatric: The patient denies psychiatric medications, denies depression, and denies voices, denies substance abuse. Endocrine: The patient denies thyroid disorders, denies diabetes, and denies hormonal problems. Hematologic: The patient denies a history of bruising, denies bleeding, and denies anemia, denies blood clots. Infections: The patient denies a history of measles and mumps, denies rheumatic fever, and denies sexually transmitted diseases. Musculoskeletal: The patient denies back pain/injury, denies back problems, denies sciatica, denies knee/foot trouble, denies arthritis, or denies gout. When was patient's last Mammogram screening? N/A Last Colonoscopy: [facility] 12/2014 Brigitte Nevarez PA-C 11/06/2017 3:01 PM Signed HISTORY AND PHYSICAL Eddie Longoria 1965 REFERRING PHYSICIAN: Susana Mendieta, * CHIEF COMPLAINT: colon consult HPI: The patient is a 51 year old male referred for endoscopy. Eddie notes a personal history of rectal cancer and is due for surveillance colonoscopy, last was in [address] Joseph. He denies any change in bowel habits, weight changes, blood in stools, black tarry stools or abdominal pain. The patient notes no history of upper GI complaints. The patient is being seen by me today at the request of Dr. Adriel Morocho for my opinion and advice regarding surveillance colonoscopy. Past medical history is significant for rectal cancer as noted above, as well as hypertension, hyperlipidemia, and a prior DVT which occurred while on chemotherapy. Patient denies any cardiac or respiratory complaints currently, and denies any problems with sedation in the past. PAST MEDICAL HISTORY Diagnosis Date - Bowel disease rectal ca - Hyperlipidemia - Hypertension - Rectal cancer (HCC) PAST SURGICAL HISTORY Procedure Laterality Date - COLONOSCOP W/ OR W/O BRSH SPEC 12/23/14 clean anastomosis - 3 year follow up - COLONOSCOPY W/BX (COLON) 08/13/13 - HERNIA REPAIR HX 03/2016 - LAP INC HERNIA REPAIR 09/26/14 10x15 and [id number] mesh - PAST SURGICAL HISTORY OF 09/16/2013 colon/ rectum resection - TUNNEL VAD W SUB Q PORT >=5 11/09/13 Left subclavian Current Outpatient Prescriptions: OTC PRODUCT Nutrigenix: Take one tablet by mouth once daily. multivitamin tablet Take 1 tablet by mouth once daily. ibuprofen (MOTRIN) 200 mg tablet Take 600 mg by mouth every 8 hours as needed. Tvsrltvurj-uzTHROCgbu-UGXJ (TRIBENZOR) 40-10-25 mg tab Take 1 tablet by mouth once daily. No current facility-administered medications for this visit. ALLERGIES: Codeine; Aleve [Naproxen Sodium]; Aspirin PERSONAL HISTORY: Social History Marital status: Spouse name: Years of education: Number of children: Social History Main Topics Smoking status: Former Smoker Packs/day: 1.00 Years: 10.00 Types: Cigarettes Quit date: 08/04/1987 Smokeless status: Never Used Alcohol use: No Drug use: No FAMILY HISTORY: FAMILY HISTORY Problem Relation Age of Onset - renal failure [Other] [OTHER] Father father at young age ude to kidney failure. - Breast Cancer Mother REVIEW OF SYMPTOMS: The review of systems data was entered by the nurse and reviewed by ms Nursing Notes: Brigitte Kevin LPN 11/05/2017 3:15 PM Signed REVIEW OF SYSTEMS: General: The patient denies fatigue, denies weight loss, denies weight gain, denies feeling hot, and denies feelings of cold. Eyes: The patient denies glaucoma, denies eye injury/surgery, wears glasses or contacts. Ear/Nose/Throat: The patient denies allergies, denies hayfever, denies ear infections, and denies bloody noses. Cardiovascular: The patient denies chest pain, denies heart disease, denies high blood pressure,denies cardiac stent, denies prior heart attack, denies irregular heart beat, denies high cholesterol, denies poor circulation, denies heart failure, other cardiac issues, denies claudication, denies cold feet, denies peripheral arterial stent. Respiratory: The patient denies tuberculosis, denies pneumonia, denies frequent cough, denies pulmonary embolism, denies shortness of breath, and denies coughing up blood. Gastrointestinal: The patient denies difficulty swallowing, denies acid reflux, denies ulcers, denies vomiting, denies jaundice/hepatitis, denies gallbladder problems, denies black or tarry stools, denies hemorrhoids, denies bleeding from rectum, denies diverticulitis, denies constipation, denies diarrhea, denies loss of stool control, and denies hernias. Kidney/Bladder: The patient denies kidney stones, denies urine infections, and denies bloody urine. Skin: The patient denies a history of skin cancer, denies bleeding/changing moles, and denies a history of skin rash. Neurologic: The patient denies a history of epilepsy/convulsions, denies headaches, denies head/spinal injuries, and denies stroke/TIA. Psychiatric: The patient denies psychiatric medications, denies depression, and denies voices, denies substance abuse. Endocrine: The patient denies thyroid disorders, denies diabetes, and denies hormonal problems. Hematologic: The patient denies a history of bruising, denies bleeding, and denies anemia, denies blood clots. Infections: The patient denies a history of measles and mumps, denies rheumatic fever, and denies sexually transmitted diseases. Musculoskeletal: The patient denies back pain/injury, denies back problems, denies sciatica, denies knee/foot trouble, denies arthritis, or denies gout. When was patient's last Mammogram screening? N/A Last Colonoscopy: [facility] 12/2014 Brigitte Nevarez PA-C PHYSICAL EXAMINATION: General: The patient is 51 year old male, well nourished, well hydrated in no acute distress. The patient is oriented to time, place, and person. VITALS: Blood pressure 136/70, pulse 60, resp. rate 18, height 177.8 cm (5' 10), weight 109.3 kg (241 lb). Body mass index is 34.58 kg/(m2). HEENT: Normal cephalic, ataumatic, pupils are equally round, sclera are anicteric, mucous membranes are moist, oropharynx is clear. Neck has no masses, asymmetry or lymphadenopathy. Respiratory: Clear to auscultation and percussion. Normal respiratory excursion and pattern. Cardiac: Examination is regular rate and rhythm. Abdominal exam: Soft, nontender, with no palpable masses. No hepatosplenomegaly. No palpable hernias. Rectal exam: exam deferred Extremities: no clubbing, cyanosis or edema. No adenopathy. Other: LABORATORY VALUES: As Noted RADIOLOGIC STUDIES: As Noted Assessment IMPRESSION: personal history of rectal cancer, need for surveillance colonoscopy PLAN: We will plan for surveillance colonoscopy. Date of last colonoscopy was 12/23/14 with 3 year follow-up recommended. Patient wishes to have procedure earlier than 12/23-he has been instructed to contact his insurance to make sure this will still be covered if prior to 12/23/17. We discussed the risks and benefits of the planned endoscopy. I have informed the patient that complications can occur including failure to complete the endoscopy and perforation. The patient had the opportunity to ask questions concerning the planned endoscopy. My staff has also explained the procedure to the patient in understandable terms and has given the patient printed material concerning the procedure. The patient freely consents to surgery. I plan to use golytely bowel preparation for endoscopy Diagnoses: (Z85.048) Personal history of rectal cancer (primary encounter diagnosis) My findings have been communicated to Dr. Adriel Morocho via shared medical record. This note will be forwarded to Dr. Susana Morocho, BAKARI. Return to Clinic: The patient is instructed to follow-up with me 1 week post operatively. Margot Nevarez PA-C PROGRESS Observed: 08/27/2017 Status: COMPLETED Source: [place] 2:15 PM [facility] REPOSITORY HNO ID: [id number] Author: Camila Murdock) Bartolome Service: (none) Author Type: Nurse Practitioner Type: Progress Notes Filed: 08/27/2017 2:50 PM Note Text: Chief Complaint Patient presents with: Established Patient HPI: Eddie Longoria is a 51 year old male who presents here today for follow up colon cancer. Per Dr. Flores's previous note: H/o previously in good health. He noted a change in bowel habits and went to his PCP. Was referred for colonoscopy. Had this done 08/13/2013 in [place]. There was a tumor at about 10 cm. Biopsy positive for an invasive moderately differentiated adenocarcinoma arising in association with tubulovillous adenoma. ? Was referred to CRS. ?? Proctoscopy revealed tumor at 10 cm. ?? CT chest showed indeterminate pulmonary nodules [address] scan of the abdomen and pelvis showed no evidence of metastatic disease. ?? MRI of the pelvis on 09/03/2013 showed mass in the upper rectum without invasion into the perirectal fat. Several perirectal LNs were noted which were indeterminate for malignant lymphadenopathy. ?? Underwent APR 09/16/2013 with anastomosis.?? SIGMOID RECTUM: COLON AND RECTUM:RESECTION, INCLUDING TRANSANAL DISK EXCISION OF RECTAL NEOPLASMS WORKSHEET: Specimen: Sigmoid colon Rectum Procedure: Rectal / rectosigmoid colon (low anterior resection) Primary Tumor Site: Rectum Additional Sites Involved by Tumor: None identified Macroscopic Tumor Perforation: Not identified Macroscopic Intactness of Mesorectum: Complete Histologic Type: Mucinous adenocarcinoma Histologic Grade: Low-grade (well-differentiated to moderately differentiated) Tumor Size: Greatest dimension: 9.5 cm Additional Dimension: 7.2 cm Additional Dimension: 1.9 cm Microscopic Tumor Extension: Tumor invades through the muscularis propria into the subserosal adipose tissue or the nonperitonealized pericolic or perirectal soft tissues but does not extend to the serosal surface All Margins Uninvolved By Invasive Carcinoma: All margins uninvolved by invasive carcinoma Distance of invasive carcinoma from closest margin: 2.5 cm Margin: Distal Proximal Margin: Uninvolved by invasive carcinoma - No adenoma or intraepithelial neoplasia/dysplasia identified Distal Margin: Uninvolved by invasive carcinoma - No adenoma or intraepithelial neoplasia/dysplasia identified Circumferential Radial Margin: Uninvolved by invasive carcinoma Mesenteric Margin: Uninvolved by invasive carcinoma Treatment Effect: No prior treatment Lymph-Vascular Invasion: Present Perineural Invasion: Present Tumor Deposits: Present Number of deposits: 1 Type of Polyp in which Invasive Carcinoma Arose: Tubulovillous adenoma Ancillary Studies: Microsatellite Instability-Addendum to follow TNM Descriptors: Not applicable Pathologic Staging (pTNM): pT3: Tumor invades through the muscularis propria into pericolorectal tissues Regional Lymph Nodes (pN): pN2a: Metastasis in 4 to 6 regional lymph nodes Number of nodes examined: 15 Number of nodes involved: 5 Distant Metastasis (pM): Not applicable Additional Pathologic Findings: Other: Two incidental hyperplastic polyps? No preoperative CEA. ? KEILA. ?? US revealed left below knee DVT. ? Started on Lovenox. ?? Received adjuvant FOLFOX. ? Cycle #5 was delayed due to neutropenia. ? Cycle #6 omitted due to prolonged thrombocytopenia. ?? Began radiation 02/28. ? Completed 50.4 Gy. ?? He had continued thrombocytopenia and Xeloda was held at 21.6 Gy. ? Completed first cycle Xeloda 06/06. ? Incisional hernia repair by Dr. Joseph on 09/26/14. ?? Colonoscopy done in [place]. Next due in 3 years 12/2017. ? ?? S/p 1. Open right myofascial advancement flap. 2. Open left myofascial advancement flap. 3. Repair of recurrent incarcerated incisional hernia. ? 4. Implantation of 30 x 30 cm of Soft mesh. ? 5. Resection of skin and subcutaneous tissue. on 03/21/16 by SANDI HERRERA MD Recovered well per pt. ? No complaints. ? Appetite:too good Energy level:it's ok Denies fevers or recent illness. 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 The ROS is otherwise negative. ? Past medical history, appointments, medications, allergies reviewed. No changes. EXAM: BP 116/64 Pulse 67 Temp 37.3 ?C (99.1 ?F) (Oral) Wt 117.3 kg (258 lb 8 oz) BMI 37.09 kg/m2 APPEARANCE Well appearing, alert, in no acute distress, well-hydrated, well nourished. HEART RRR with normal S1 and S2, no murmurs LUNG clear to auscultation LYMPH NODES No cervical lymphadenopathy, No supraclavicular lymphadenopathy and No axillary lymphadenopathy. ABDOMEN bowel sounds normoactive, no bruits, soft, non-tender, non-distended, without organomegaly or palpable masses EXTREMITIES No edema NEURO Awake, alert and oriented x 3, Normal gait and No involuntary motions. SKIN Skin color, texture, turgor normal, no suspicious rashes or lesions LABS: Component Latest Ref Rng AND Units 04/25/2014 10/12/2014 02/22/2015 05/25/2015 08/28/2015 01/03/2016 07/03/2016 02/19/2017 08/20/2017 CEA 0.0 - 2.9 ng/mL 1.5 2.0 2.6 2.3 1.9 2.4 2.5 2.3 2.6 ASSESSMENT/PLAN: 1. Rectal cancer (HCC) - ICD9: 154.1, ICD10: C20 pT3 pN2a M0 stage III rectal cancer. - No concerning findings on exam. - CT's as indicated. - Reviewed CEA with pt. - ?Colonoscopy due December 2017-Dr. Joseph. - ?Follow up in 6 months with CEA. - ?Pt. aware to call office with any questions/concerns. ? The patient indicates understanding of these issues and agrees with the plan. Camila Mancuso CNP CNOVSP Observed: 08/27/2017 Status: COMPLETED Source: [place] 2:00 PM [facility] REPOSITORY Visit (SP) Office ([place]) EDDIE LONGORIA ([id number]) 1965 M Date Time Provider Department 08/27/17 2:00 PM CAMILA MANCUSO ([facility]) [place] During your visit today, we recorded the following information about you: Temperature Pulse Blood pressure Weight 99.1 degrees 67/minute 116/64 117.3 kg Camila Mancuso CNP 08/27/2017 2:50 PM Signed Chief Complaint Patient presents with: Established Patient HPI: Eddie Longoria is a 51 year old male who presents here today for follow up colon cancer. Per Dr. Flores's previous note: H/o previously in good health. He noted a change in bowel habits and went to his PCP. Was referred for colonoscopy. Had this done 08/13/2013 in [place]. There was a tumor at about 10 cm. Biopsy positive for an invasive moderately differentiated adenocarcinoma arising in association with tubulovillous adenoma. ? Was referred to CRS. ?? Proctoscopy revealed tumor at 10 cm. ?? CT chest showed indeterminate pulmonary nodules [address] scan of the abdomen and pelvis showed no evidence of metastatic disease. ?? MRI of the pelvis on 09/03/2013 showed mass in the upper rectum without invasion into the perirectal fat. Several perirectal LNs were noted which were indeterminate for malignant lymphadenopathy. ?? Underwent APR 09/16/2013 with anastomosis.?? SIGMOID RECTUM: COLON AND RECTUM:RESECTION, INCLUDING TRANSANAL DISK EXCISION OF RECTAL NEOPLASMS WORKSHEET: Specimen: Sigmoid colon Rectum Procedure: Rectal / rectosigmoid colon (low anterior resection) Primary Tumor Site: Rectum Additional Sites Involved by Tumor: None identified Macroscopic Tumor Perforation: Not identified Macroscopic Intactness of Mesorectum: Complete Histologic Type: Mucinous adenocarcinoma Histologic Grade: Low-grade (well-differentiated to moderately differentiated) Tumor Size: Greatest dimension: 9.5 cm Additional Dimension: 7.2 cm Additional Dimension: 1.9 cm Microscopic Tumor Extension: Tumor invades through the muscularis propria into the subserosal adipose tissue or the nonperitonealized pericolic or perirectal soft tissues but does not extend to the serosal surface All Margins Uninvolved By Invasive Carcinoma: All margins uninvolved by invasive carcinoma Distance of invasive carcinoma from closest margin: 2.5 cm Margin: Distal Proximal Margin: Uninvolved by invasive carcinoma - No adenoma or intraepithelial neoplasia/dysplasia identified Distal Margin: Uninvolved by invasive carcinoma - No adenoma or intraepithelial neoplasia/dysplasia identified Circumferential Radial Margin: Uninvolved by invasive carcinoma Mesenteric Margin: Uninvolved by invasive carcinoma Treatment Effect: No prior treatment Lymph-Vascular Invasion: Present Perineural Invasion: Present Tumor Deposits: Present Number of deposits: 1 Type of Polyp in which Invasive Carcinoma Arose: Tubulovillous adenoma Ancillary Studies: Microsatellite Instability-Addendum to follow TNM Descriptors: Not applicable Pathologic Staging (pTNM): pT3: Tumor invades through the muscularis propria into pericolorectal tissues Regional Lymph Nodes (pN): pN2a: Metastasis in 4 to 6 regional lymph nodes Number of nodes examined: 15 Number of nodes involved: 5 Distant Metastasis (pM): Not applicable Additional Pathologic Findings: Other: Two incidental hyperplastic polyps? No preoperative CEA. ? KEILA. ?? US revealed left below knee DVT. ? Started on Lovenox. ?? Received adjuvant FOLFOX. ? Cycle #5 was delayed due to neutropenia. ? Cycle #6 omitted due to prolonged thrombocytopenia. ?? Began radiation 02/28. ? Completed 50.4 Gy. ?? He had continued thrombocytopenia and Xeloda was held at 21.6 Gy. ? Completed first cycle Xeloda 06/06. ? Incisional hernia repair by Dr. Joseph on 09/26/14. ?? Colonoscopy done in . Next due in 3 years 12/2017. ? ?? S/p 1. Open right myofascial advancement flap. 2. Open left myofascial advancement flap. 3. Repair of recurrent incarcerated incisional hernia. ? 4. Implantation of 30 x 30 cm of Soft mesh. ? 5. Resection of skin and subcutaneous tissue. on 03/21/16 by SANDI HERRERA MD Recovered well per pt. ? No complaints. ? Appetite:ANDquot;too goodANDquot; Energy level:ANDquot;it's okANDquot; Denies fevers or recent illness. 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 The ROS is otherwise negative. ? Past medical history, appointments, medications, allergies reviewed. No changes. EXAM: BP 116/64 Pulse 67 Temp 37.3 ?C (99.1 ?F) (Oral) Wt 117.3 kg (258 lb 8 oz) BMI 37.09 kg/m2 APPEARANCE Well appearing, alert, in no acute distress, well- hydrated, well nourished. HEART RRR with normal S1 and S2, no murmurs LUNG clear to auscultation LYMPH NODES No cervical lymphadenopathy, No supraclavicular lymphadenopathy and No axillary lymphadenopathy. ABDOMEN bowel sounds normoactive, no bruits, soft, non-tender, non-distended, without organomegaly or palpable masses EXTREMITIES No edema NEURO Awake, alert and oriented x 3, Normal gait and No involuntary motions. SKIN Skin color, texture, turgor normal, no suspicious rashes or lesions LABS: Component Latest Ref Rng ANDamp; Units 04/25/2014 10/12/2014 02/22/2015 05/25/2015 08/28/2015 01/03/2016 07/03/2016 02/19/2017 08/20/2017 CEA 0.0 - 2.9 ng/mL 1.5 2.0 2.6 2.3 1.9 2.4 2.5 2.3 2.6 ASSESSMENT/PLAN: 1. Rectal cancer (HCC) - ICD9: 154.1, ICD10: C20 pT3 pN2a M0 stage III rectal cancer. - No concerning findings on exam. - CT's as indicated. - Reviewed CEA with pt. - ?Colonoscopy due December 2017-Dr. Joseph. - ?Follow up in 6 months with CEA. - ?Pt. aware to call office with any questions/concerns. ? The patient indicates understanding of these issues and agrees with the plan. Camila Mancuso CNP Referring Provider: CAMILA MANCUSO ([facility]) [[id number]] Allergies As of Date: 08/27/2017 Noted Allergy Reaction CODEINE 08/25/2013 10 - Anaphylaxis Comments: Had codeine when a teenager and had facial swelling. ALEVE (NAPROXEN SODIUM) 08/25/2013 8 - GI Upset ASPIRIN 08/25/2013 8 - GI Upset Date Reviewed: 08/27/2017 Reviewed by: Camila ([facility]) Bartolome - Fully Assessed Reason for Visit: Established Patient [175] Primary Visit Diagnosis:Rectal cancer (HCC) [C20] Follow-up and Disposition History Recorded Prescriptions as of 08/27/2017 Sig: OTC PRODUCT Nutrigenix: Take one tablet b* MULTIVITAMIN TABLET Take 1 tablet by mouth once d* IBUPROFEN 200 MG TABLET Take 600 mg by mouth every 8 * OLMESARTAN 40 MG-AMLODIPINE 1* Take 1 tablet by mouth once d* Problem List As Of Date 08/27/2017 Noted Resolved Rectal cancer (HCC) [C20] INVALID FOR*03/21/2016 DVT (deep venous thrombosis) (HCC) [I82.409] INVALID FOR*03/21/2016 Thrombocytopenia (HCC) [D69.6] INVALID FOR* Incisional hernia [K43.2] INVALID FOR*03/21/2016 Incisional hernia, without obstruction or gangr*INVALID FOR* Recurrent incisional hernia with incarceration *INVALID FOR*03/21/2016 Incisional hernia [K43.2] INVALID FOR* Rectal cancer (HCC) [C20] INVALID FOR* Encounter Status:Closed by CAMILA MANCUSO CNP on 08/27/17 ALLERGIES ALLERGIES DATE TYPE / CODE NAME / CODE REACTION SEVERITY SOURCE 08/19/2018 Drug naproxen Upset Stomach Unknown [place] Allergy/416 sodium/[id number] Community 973404([facility] 81(RXNORM) [facility] ED CT) Repository 08/19/2018 Drug codeine/[id number] Swelling Unknown [place] Allergy/416 550(RXNORM) Community 086757([facility] ED CT) Repository 08/19/2018 Drug aspirin/[id number] Upset Stomach Unknown [place] Allergy/416 587(RXNORM) Community 537047([facility] ED CT) Repository 08/25/2013 DRUG CODEINE ANAPHYLAXIS High [facility] INGREDI/419 Other War 973481(SNOM Repository ED CT) 08/25/2013 DRUG NAPROXEN SODIUM GI UPSET [facility] INGREDI/419 Other War 931075(SNOM Repository ED CT) 08/25/2013 DRUG ASPIRIN GI UPSET [facility] INGREDI/419 Other War 898731(SNOM Repository ED CT) ENCOUNTERS ENCOUNTERS ADMIT/DISCHARGE ACCOUNT NUMBER ADMITTING ENCOUNTER LOCATION SOURCE CLASS 08/19/2018/08/19/19 [id number] Ambulatory BMSBuilding: [place] Repository 07/27/2018/07/27/20 [id number] Ambulatory [address] Main [place] Repository 07/20/2018 [id number] Ambulatory [facility] ding:[facility] Repository 07/20/2018/07/27/20 [id number] Ambulatory [address] [place] Repository 07/16/2018/07/16/20 [id number] Ambulatory [address] Main [place] Repository 07/07/2018 [id number] Ambulatory [facility] Other War Repository 07/07/2018 [id number] Ambulatory [facility] Other War Repository 06/26/2018/06/26/20 [id number] Ambulatory [address] [place] Repository 06/26/2018/06/26/20 [id number] Ambulatory [address] [place] Repository 05/22/2018/05/22/20 [id number] Ambulatory [address] [place] Repository 04/22/2018/04/22/20 [id number] Ambulatory [address] [place] Repository 04/22/2018/04/24/20 [id number] Ambulatory [address] Repository 03/02/2018/03/02/20 [id number] Ambulatory [address] Repository 12/26/2017 [id number] Ambulatory [facility] Repository 11/28/2017/11/29/19 [id number] FAZAL, Ambulatory [address] Repository 11/05/2017/11/08/19 [id number] Ambulatory [address] Repository 08/27/2017/08/28/19 [id number] Ambulatory [address] Repository PAYERS PAYERS ENCOUNTER GUARANTOR PAYER SUBSCRIBER SOURCE 08/19/2018 EDDIE GOODRICH Primary EDDIE B [place] Insurance:ANTHEMPolic NIKOLAYDOB: [facility] JULIAingris PASTOR Number: [id number] [address]Owi: 330 [id number] Repository [phone] () Date:[id number] [address]SF: 08/19/2018 Secondary NOT GIVENUNK [place] Insurance:SELF PAY [facility] Number: Effective Repository Date:2018-08-14 07/20/2018 EDDIE GOODRICH Primary EDDIE Segura [place] Insurance:ANTHEMPolic NEGRAB: [facility] ingris Salas Number: [id number] [address]Myu: ([phone] [id number] Repository [phone] () Date:[id number] [address]WP: 07/20/2018 Secondary NOT GIVENUNK [place] Insurance:SELF PAY [facility] Number: Effective Repository Date:2018-07-20 12/26/2017 Eddie RuvalcabaB: Primary Eddie LongoriaDOB: Traveler | [facility] [id number] Insurance:[place] [id number] [facility] [place] Cross Blue [facility] Number: [id number]: (330) Effective Date: [phone] ()"
== END ==
PROVIDERS: Family Provider Family Medicine; PCP Family Medicine; Referring Provider Surgery; Visit Provider Surgery
DX: E04.1 Nontoxic single thyroid nodule (principal)
CPT/HCPCS: 88108; 88161; 88305; 88313; 88341; 88342

== ENCOUNTER 2018-10-21 09:43 | Day surgery (SDC) | payer BC, SELFPAY ==
[2018-08-19 13:48] VITALS: BMI 42.3
[2018-09-30 14:42] VITALS: BMI 42.3
[2018-10-21] VITALS (12 sets, daily range): BP systolic 101–139; BP diastolic 58–81; PULSE 54–87; RESP 14–18; TEMP 36.3–36.9; O2SAT 94–100; BMI 34.7
--- NOTE | 2018-10-21 09:54 | EKG12_ITS ---
Test Reason : PRE OP Blood Pressure : / mmHG Vent. Rate : 060 BPM Atrial Rate : 060 BPM P-R Int : 152 ms QRS Dur : 090 ms QT Int : 422 ms P-R-T Axes : 014 -05 008 degrees QTc Int : 422 ms Normal sinus rhythm Normal ECG When compared with ECG of 19-SEP-2014 09:40, No significant change was found Confirmed by TINO ADAM, VANGIE ([id number]), society editor AUDRA QUINN ([id number]) on 10/23/2018 9:49:34 AM Referred By: Gordo Torre Confirmed By:VANGIE JIMÉNEZ MD
[2018-10-21 10:08] LABS: Hematocrit 42.1 % (40-54); Hemoglobin 13.8 g/dl (13.0-16.5); Mean Corp Hgb Conc 32.8 g/gl (32-36); Mean Corpuscular Hgb 29.9 pg (27.0-32.0); Mean Corpuscular Volume 91.1 fL (80-94); Platelet Count 168 K/mm3 (150-450); RBC Distribution Width CV 13.1 % (11.6-14.6); RBC Distribution Width SD 42.7 fl (35.1-43.9); Red Blood Count 4.62 M/mm3 (4.6-6.2); White Blood Count 5.1 K/mm3 (4.4-11.0)
[2018-10-21 10:12] LABS: Scan Indicated on CBC? Y/N NO
[2018-10-21] MEDS: Cefazolin 2 GM in 0.9% Normal Saline 100 ML IV (10:42)
--- NOTE | 2018-10-21 10:58 | PCM.OPRPT ---
Problem List (1) Papillary carcinoma of thyroid Status: Acute Report of Operation Date of Procedure: 10/21/18 Pre-Operative Diagnosis: Papillary thyroid cancer Post-Operative Diagnosis: Same Surgery/Procedure Performed:: Total thyroidectomy Type of Anesthesia:: General Anesthesiologist: Jerry Dickerson Specimen's removed: Total thyroid Estimated Blood Loss (mL): < 25 cc Description of Procedure: Patient was brought into the operating room and placed in the supine position under excellent general trach intubation towel was placed underneath the shoulder blades and the neck was extended appropriately. The neck was then sterilely prepped and draped in usual fashion. Local was injected in a cervical incision was made subplatysmal flaps were created with use of electrocautery. Gelpi retractor was placed into the wound. Midline strap muscles were opened with electrocautery. I started on the left side the cancer was in the superior pole I started dissecting up here this was extremely hard malignancy densely adherent to the strap muscles which I had to take part of the muscle and leave it on the gland itself I eventually was able to get to the superior pole vessels and took these down with harmonic dissector rotated the gland from lateral to medial standpoint taking the inferior thyroid vessels with the harmonic dissector and finally the middle thyroidal vein with the harmonic dissector I then rotated the gland from lateral to medial standpoint this took quite a bit of time identifying the nerve and then painstakingly taking the nerve off of the tumor itself I was able to spare the nerve in its entirety as well as spare the inferior parathyroid glands but a superior parathyroid gland I did not identified. It is quite possibly with in the malignancy itself. Once I rotated the gland I then took her off of Caceres's ligament with the harmonic dissector and then went to the right side of the thyroid gland once again on this time I went inferiorly into the inferior thyroid vessels down then the middle thyroidal vein down both with the harmonic dissector and then went to the superior pole vessels and took these down with harmonic dissector once again rotating the gland from lateral to medial standpoint and identifying the recurrent laryngeal nerve. I took the gland off of Caceres's ligament with a harmonic dissector this went quite nicely and I had very little blood loss on this side. I then inspected the gland I did not see any obvious parathyroid tissue. I marked the gland on with a single suture on the left side. I irrigated out both the left and right thyroid beds I had good hemostasis I placed FloSeal in a piece of fluffy Surgicel in both of the thyroid beds. Midline strap muscles were then brought together with 2-0 Vicryl. Subplatysmal flaps were brought together with 3-0 Vicryl. Deep dermal stitches of 3-0 Vicryl and finally a running 4-0 Monocryl. Dermabond was applied sterile dressings were applied and the patient tolerated the procedure well. - Admit VTE Documentation VTE Present on Admission: No VTE Mechan Device Prophylaxis: SCD's VTE Pharm Prophylaxis ordered?: No Reason prophylaxis not ordered:: Treatment Not Indicated
--- NOTE | 2018-10-21 11:50 | THYROID_PTH ---
PATIENT: EDDIE LINK LOC: [facility] [place] U#:[id number] AGE/SX: 52/M ROOM: RE10/21/[address]: Dr. Grodo Torre MD : 1965 BED: DIS: 10/22/2018 SPEC #: [id number] RECD: 10/21/18 13:10 STATUS: NEALBeto MORAN #: [id number] EMELINA: 10/21/18 11:[address]: Gordo Torre DEPT: SURGICAL PATHOLOGY RECD BY: Waqar Horvath ENTERED: 10/21/18 13:46 SP TYPE: THYROID OTHR DR: No Primary Care Phys Tissues: A - Thyroid gland, NOS B - Lymph node, NOS Procedures: Surgery Specimen Level IV Surgery Specimen Level V HEADER OPERATION: Total thyroidectomy PRE-OP DIAGNOSIS: Papillary thyroid carcinoma TISSUE SUBMITTED: A - Total thyroid - suture at left side, B - Central compartment lymph node MICROSCOPIC DIAGNOSIS A. Thyroid, total thyroidectomy: Papillary thyroid carcinoma (2 cm in greatest dimension). Chronic lymphocytic thyroiditis (Sarah's thyroiditis). One out of two lymph nodes positive for metastatic carcinoma. See cancer summary below. See comment. B. Central compartment lymph nodes, biopsy: Two out of two lymph nodes, positive for metastatic carcinoma. See comment. SJ:duy 10/23/18 THYROID CANCER SUMMARY (including specimen A & B): Procedure - total thyroidectomy Received - in formalin Specimen integrity - intact Specimen size - right lobe 5 x 3 x 1.2 cm, left lobe 4.5 x 2 x 2 cm, isthmus 2 x 0.5 x 0.4 cm Specimen weight - Tumor focality - unifocal Tumor laterality - left lobe Tumor size - 2 x 1.5 x 1 cm Histologic type - papillary carcinoma Variant - classical (usual with focal H?rthle cell features) Architecture - classical (papillary) with extensive fibrosis Cytomorphology - classical and oncocytic Margins - margins uninvolved by carcinoma. The tumor is <0.1 cm away from the anterior and posterior margins. Tumor capsule - none Tumor capsular invasion - not applicable Lymph-Vascular invasion - not identified Extrathyroidal extension - present, extensive. See comment. Lymph nodes: Number examined - 4 Number involved - 3 Lymph node, extranodal extension - not identified Distant metastasis - not applicable Additional pathologic findings - chronic lymphocytic thyroiditis (Sarah's thyroiditis). Ancillary studies - not performed PATHOLOGIC STAGE: pT3 pN1 Mx The above summary is in compliance with [employer] (CAP) Cancer Protocols Checklist and [place] Joint Committee on Cancer (AJCC), Staging Manual, 8th Ed. COMMENT A. The specimen also show skeletal muscle fibers, the tumor is present close to the skeletal muscle fibers, however, does not appear invades the skeletal muscle fibers. The metastatic focus in the lymph nodes measures 0.4 x 0.3 cm (measured microscopically). Extranodal extension is not seen. B. The largest focus of metastasis measures 0.6 x 0.4 cm (measured microscopically). Extranodal extension is not seen. Please make reference to previous specimen ([id number]) fine needle aspiration, left thyroid nodule (cytospin and cell block) and fine needle aspiration, left thyroid nodule (smears) with diagnosis of positive for malignant cells, consistent with papillary thyroid carcinoma. This case is discussed with Dr. Torre on 10/23/18. Case has been reviewed in consultation with Dr. Us who concurs with the above diagnosis. IDC:AM MICROSCOPIC DESCRIPTION Slides are reviewed. GROSS DESCRIPTION A - Received in fixative is one container labeled with the patient's name and designated total thyroid, suture on left side. The specimen consists of a total thyroidectomy specimen weighing 21.6 gm. The right thyroid lobe measures 5 x 3 x 1.2 cm and left thyroid lobe measures 4.5 x 2 x 2 cm and the isthmus measures 2 x 0.5 x 0.4 cm. No external parathyroid tissue is identified. The specimen is inked as follows: anterior surface right lobe - blue, anterior surface isthmus - green and anterior surface left lobe??yellow. Sections of the isthmus do not reveal any mass lesion. Sections of the right lobe reveal a kowalski-white nodule in the middle and lower portion of the thyroid lobe measuring 3 x 1.5 x 1 cm. Sections of the rest of the right thyroid lobe reveal pink-red cut surfaces with focal fibrous area. Sections of the left lobe reveal a kowalski-white solid mass in the upper pole measuring 2 x 1.5 x 1 cm. The entire specimen is submitted in 15 cassettes as follows: 1 - isthmus, 2-8 - right lobe (2 containing most superior portion and 8 containing most inferior portion), 9-15 left lobe (9 containing most superior portion and 15 containing most inferior portion). / GERA:duy 10/22/18 B - Received in fixative is one container labeled with the patient's name and designated central compartment lymph node. The specimen consists of two pieces of adipose tissue containing nodule measuring 2 x 1 x 0.5 cm and 1 x 0.5 x 0.4 cm. The pieces are bisected. The entire specimen is submitted in one cassette. The smaller lymph node is inked black. / GERA:duy 10/21/18 TC:0 CPT: 63727, 84916
[2018-10-21] MEDS: BUPIVACAINE LIPOSOME/PF 20 ML VIAL OPERA.SITE (12:27)
[2018-10-21 15:46] LABS: Calcium,Total 8.5 mg/dL (8.5-10.1)
[2018-10-21] MEDS: Lactated Ringers 1,000 ML 60 ML IV (16:20)
[2018-10-21] MEDS: oxyCODONE 5 MG Tablet PO ×2 (18:14→21:54)
[2018-10-21 22:14] LABS: Calcium,Total 8.2 mg/dL (8.5-10.1)
[2018-10-22 04:18] VITALS: BP 122/72; PULSE 61; RESP 16; TEMP 36.4; O2SAT 97
[2018-10-22] MEDS: oxyCODONE 5 MG Tablet PO ×2 (04:19→08:47)
[2018-10-22] MEDS: Levothyroxine 100 MCG Tablet PO (06:35)
[2018-10-22 06:43] LABS: Calcium,Total 7.9 mg/dL (8.5-10.1)
--- NOTE | 2018-10-22 08:19 | PCM.DC.GS ---
Discharge Diet: Soft diet Discharge Activity: May Not Drive - 5 days or as long as you are taking pain medication May shower in (days): 1 Lifting Restrictions: 10 pounds Call your doctor if your incision/area has: Continuous Slow Oozing, Sudden Increased Bleeding, Increased Pain/ Swelling, Increased Redness, Foul Smelling Discharge, Swelling at the incision site Suture Line Care: Avoid Pulling/Pushing, Avoid Pinching/Bending Cleanse incision/area with: Soap & Water Additional Instructions: Please take Synthroid daily at the same time each day I have also prescribed Rocaltrol (Calcium supplement) you will take this 1 tablet once a day Also please take extra strength TUMs 3 tablets three times per day We will recheck calcium level at follow-up Please call if any signs of dani-oral numbness, numbness and tingling of fingers tip, extreme fatigue. Recommend throat lozenges or salt water gurgles for sore throat. Allergies/Adverse Reactions: Allergies codeine Allergy (Verified 10/14/18 15:10) Swelling aspirin Adverse Reaction (Verified 10/14/18 15:10) Upset Stomach naproxen sodium [From Aleve] Adverse Reaction (Verified 10/14/18 15:10) Upset Stomach Medications to take at Discharge Ibuprofen [Motrin] 400 mg PO Q4H PRN PRN 09/19/14 Amlodipine Bes/Olmesartan Med [Amlodipine-Olmesartan 10-40 mg] 1 each PO DAILY 10/14/18 Calcitriol [Rocaltrol] 0.5 mcg PO DAILY #14 capsule 10/22/18 Levothyroxine [Synthroid] 100 mcg PO DAILY@0600 #30 tablet 10/22/18 Oxycodone [Oxyir] 5 mg PO Q6H PRN PRN 3 Days #10 tablet 10/22/18 The following prescriptions were given: Oxycodone [Oxyir] 5 mg PO Q6H PRN PRN 3 Days #10 tablet PRN Reason: Severe Pain (-05/13) Calcitriol [Rocaltrol] 0.5 mcg PO DAILY #14 capsule Levothyroxine [Synthroid] 100 mcg PO DAILY@0600 #30 tablet Primary Care Physician: Care Physician,No Primary [Primary Care Provider] - Test Results: Test results from this visit will be discussed in further detail at your follow-up appointment, if applicable. Please Follow Up With: Margot Vyas PA-C - [phone] When: 7 days Proposed Discharge Date: 10/22/18
--- NOTE | 2018-10-22 08:33 | DCINST_ITS ---
Discharge Diet: Soft diet Discharge Activity: May Not Drive - 5 days or as long as you are taking pain medication May shower in (days): 1 Lifting Restrictions: 10 pounds Call your doctor if your incision/area has: Continuous Slow Oozing, Sudden Increased Bleeding, Increased Pain/ Swelling, Increased Redness, Foul Smelling Discharge, Swelling at the incision site Suture Line Care: Avoid Pulling/Pushing, Avoid Pinching/Bending Cleanse incision/area with: Soap & Water Additional Instructions: Please take Synthroid daily at the same time each day I have also prescribed Rocaltrol (Calcium supplement) you will take this 1 tablet once a day Also please take extra strength TUMs 3 tablets three times per day We will recheck calcium level at follow-up Please call if any signs of dani-oral numbness, numbness and tingling of fingers tip, extreme fatigue. Recommend throat lozenges or salt water gurgles for sore throat. Allergies/Adverse Reactions: Allergies codeine Allergy (Verified 10/14/18 15:10) Swelling aspirin Adverse Reaction (Verified 10/14/18 15:10) Upset Stomach naproxen sodium [From Aleve] Adverse Reaction (Verified 10/14/18 15:10) Upset Stomach Medications to take at Discharge Ibuprofen [Motrin] 400 mg PO Q4H PRN PRN 09/19/14 Amlodipine Bes/Olmesartan Med [Amlodipine-Olmesartan 10-40 mg] 1 each PO DAILY 10/14/18 Calcitriol [Rocaltrol] 0.5 mcg PO DAILY #14 capsule 10/22/18 Levothyroxine [Synthroid] 100 mcg PO DAILY@0600 #30 tablet 10/22/18 Oxycodone [Oxyir] 5 mg PO Q6H PRN PRN 3 Days #10 tablet 10/22/18 The following prescriptions were given: Oxycodone [Oxyir] 5 mg PO Q6H PRN PRN 3 Days #10 tablet PRN Reason: Severe Pain (-05/13) Calcitriol [Rocaltrol] 0.5 mcg PO DAILY #14 capsule Levothyroxine [Synthroid] 100 mcg PO DAILY@0600 #30 tablet Primary Care Physician: Care Physician,No Primary [Primary Care Provider] - Test Results: Test results from this visit will be discussed in further detail at your follow- up appointment, if applicable. Please Follow Up With: Margot Vyas PA-C - [phone] When: 7 days Proposed Discharge Date: 10/22/18
--- NOTE | 2018-10-22 08:34 | PCM.PN.SRG ---
Patient Problems: Active and Suspected Problems (Last Reviewed 09/30/18 @ 14:40 by Yael Johnson) Papillary carcinoma of thyroid (Acute) Subjective: Patient was evaluated resting comfortably in bed. Patient notes hoarseness and sore throat. He denies incisional pain/discomfort. He denies dani-oral numbness/tingling. - Physical Exam General: Alert, Oriented x3, Cooperative Neck: Supple, No JVD, Negative Carotid Bruits, - - Anterior neck incision c/d/i. No erythema or infection noted. Vital Signs Temp Pulse Resp BP Pulse Ox 97.5 F L 61 16 122/72 H 97 10/22/18 04:18 10/22/18 04:18 10/22/18 04:18 10/22/18 04:18 10/22/18 04:18 Oxygen Flow Rate (L/min) 2 Oxygen Delivery Method Room Air Weight: 241 lb 15.67 oz Body Mass Index (BMI) 34.7 Intake and Output for Last 24 Hours 10/20/18 10/21/18 10/22/18 23:59 23:59 23:59 Intake Total 3215 / 3215 750 / 750 Output Total 1600 / 1600 1450 / 1450 Balance 1615 / 1615 -700 / -700 Laboratory Tests Past 24 Hrs 10/21/18 10/21/18 10/21/18 10:00 15:12 21:36 WBC 5.1 RBC 4.62 Hgb 13.8 Hct 42.1 MCV 91.1 MCH 29.9 MCHC 32.8 RDW 13.1 RDW Differential 42.7 Plt Count 168 MPV 10.0 Calcium 8.5 8.2 L 10/22/18 06:06 WBC RBC Hgb Hct MCV MCH MCHC RDW RDW Differential Plt Count MPV Calcium 7.9 L Medical Necessity - Tobacco Use Smoking Status: Former smoker Tobacco Use: Non-smoker Assessment/Plan All Active Problems (Last Reviewed 09/30/18 @ 14:40 by Yael Johnson) Papillary carcinoma of thyroid (Acute) I am following this patient in conjunction with Dr. Torre Impression: S/p total thyroidectomy Ready for discharge Code Visit Inpatient E&M: 91628 Subs Hosp L1 - NO CHARGE/POST-OP
[2018-10-22 09:01] VITALS: BP 132/70; PULSE 72; RESP 18; TEMP 36.6; O2SAT 95
== END 2018-10-22 09:18 | disposition home or self-care (01) ==
LOC: SDC 09:45 → AC 09:46 → MS3 11:38
PROVIDERS: Anesthesiology; Referring Provider Surgery; Visit Provider Surgery
PROC: (CPT 60240; principal; 2018-10-21 11:35)
DX: C73 Malignant neoplasm of thyroid gland (principal); E06.3 Autoimmune thyroiditis; I10 Essential (primary) hypertension; E78.5 Hyperlipidemia, unspecified; Z79.899 Other long term (current) drug therapy; Z86.718 Personal history of other venous thrombosis and embolism; Z85.048 Personal history of other malignant neoplasm of rectum, rectosigmoid junction, and anus; Z87.891 Personal history of nicotine dependence; Z90.49 Acquired absence of other specified parts of digestive tract
CPT/HCPCS: 60240; 36415; 82310; 85027; 88305; 88307; 93005; 94762; J7120; J2405

== ENCOUNTER → 2018-11-09 08:35 | Outpatient (CLI) | payer BC, SELFPAY ==
[2018-10-30 09:12] VITALS: BMI 34.7
[2018-11-09 09:49] LABS: Absolute Lymphocyte Count 1.31 X10^3/ul (0.83-4.51); Absolute Neutrophil Count 2.8 X10^3/uL (2.0-7.7); Basophil# 0.01 X10^3/uL; Basophil% 0.2 % (0-1); Eosinophils% 2.1 % (0-5); Hematocrit 40.9 % (40-54); Hemoglobin 14.2 g/dl (13.0-16.5); Lymphocyte # 1.31 X10^3/ul (4.0); Lymphocyte % 27.3 % (19-41); Mean Corp Hgb Conc 34.7 g/gl (32-36); Mean Corpuscular Hgb 30.7 pg (27.0-32.0); Mean Corpuscular Volume 88.3 fL (80-94); Mean Platelet Vol. 10.7 fl (6.2-12.0); Monocyte# 0.57 X10^3/uL; Monocyte% 11.9 % (0-10); Neutrophil % 58.3 % (47-70); Platelet Count 196 K/mm3 (150-450); RBC Distribution Width CV 12.8 % (11.6-14.6); RBC Distribution Width SD 40.2 fl (35.1-43.9); Red Blood Count 4.63 M/mm3 (4.6-6.2); White Blood Count 4.8 K/mm3 (4.4-11.0)
[2018-11-09 09:57] LABS: POSITIVE COUNT NO; POSITIVE DIFFERENTIAL NO; POSITIVE MORPHOLOGY NO
[2018-11-09 10:16] LABS: AST(SGOT) 23 U/L (15-37); Alanine Aminotransfer ALT/SGPT 33 U/L (16-61); Albumin, Serum 3.6 g/dL (3.2-5.0); Alkaline Phosphatase 69 U/L (45-117); Anion Gap 7 (5-15); BUN 17 mg/dL (7-18); BUN/Creat Ratio 16.5 RATIO (10-20); Calcium,Total 8.4 mg/dL (8.5-10.1); Chloride 108 mmol/L (98-107); Creatinine, Serum 1.03 mg/dL (0.70-1.30); EST Glomerular Filtration Rate 80 mL/min (>60); Est Glom Filt Rate - Afr Amer 97 mL/min (>60); Free T3 6.7 pg/mL (2.18-3.98); Globulin 3.5 g/dL (2.2-4.2); Glucose 80 mg/dL (74-106); Potassium 3.9 mmol/L (3.5-5.1); Protein, Total 7.1 g/dL (6.4-8.2); Sodium Level 144 mmol/L (136-145); T4 Free Direct 0.58 ng/dL (0.76-1.46)
[2018-11-11 11:25] LABS: Thyroglobulin Antibody < 1.0 IU/mL (0.0-0.9); Thyroid Peroxidase AB 74 IU/mL (0-34)
== END ==
PROVIDERS: Referring Provider Internal Medicine Endocrinology, Diabetes & Metabolism; Visit Provider Internal Medicine Endocrinology, Diabetes & Metabolism
DX: C73 Malignant neoplasm of thyroid gland (principal)
CPT/HCPCS: 36415; 80053; 84439; 84443; 84481; 85025; 86376; 86800

== ENCOUNTER → 2018-12-02 09:18 | Outpatient (CLI) | payer BC, SELFPAY ==
[2018-10-30 09:12] VITALS: BMI 34.7
[2018-12-04 12:27] LABS: Anti-Thyroglobulin AB < 1.0 IU/mL (0.0-0.9); Thyroglobulin, Serum Qt. 0.1 ng/mL (1.4-29.2)
== END ==
PROVIDERS: Referring Provider Internal Medicine Endocrinology, Diabetes & Metabolism; Visit Provider Internal Medicine Endocrinology, Diabetes & Metabolism
DX: C73 Malignant neoplasm of thyroid gland (principal)
CPT/HCPCS: 36415; 84432; 86800

== ENCOUNTER 2019-12-31 17:50 | Emergency (ER) | payer BC, SELFPAY ==
[2018-12-24 10:26] VITALS: BMI 34.7
[2019-12-31 17:51] VITALS: BP 195/116; PULSE 71; RESP 15; TEMP 36.8; O2SAT 98; BMI 38.2
--- NOTE | 2019-12-31 18:04 | US_ITS ---
STUDY: VENOUS DOPPLER ULTRASOUND - RIGHT LOWER EXTREMITY REASON FOR EXAM: Male, 54 years old. RT CALF PAIN POSTERIOR TECHNIQUE: Ultrasound evaluation of the deep vein system to include su-scale imaging and compression was performed. Su-scale imaging and Doppler sonographic evaluation, including duplex spectral analysis and qualitative color flow sonography, was performed. COMPARISON: None. FINDINGS: Common Femoral Vein: Normal compression, spontaneity and augmentation. Normal color Doppler. Common Femoral Vein/Greater Saphenous Junction: Normal compression, spontaneity and augmentation. Normal color Doppler. Deep Femoral Vein: Normal compression, spontaneity and augmentation. Normal color Doppler. Femoral Proximal: Normal compression, spontaneity and augmentation. Normal color Doppler. Femoral Middle: Normal compression, spontaneity and augmentation. Normal color Doppler. Femoral Distal: Normal compression, spontaneity and augmentation. Normal color Doppler. Popliteal Vein: Partially compressible, although color flow is maintained. Posterior Tibial Vein: Normal compression, spontaneity and augmentation. Normal color Doppler. Peroneal Vein: Normal compression, spontaneity and augmentation. Normal color Doppler. US/Venous Duplex Imag/Limited/Uni IMPRESSION: Partial, nonocclusive DVT is suspected in the popliteal vein, as that vessel demonstrates incomplete compressibility but preserved color flow.. No acute occlusive DVT is visible in the right leg. Electronically Signed: Bora Morales MD at 19:19 EDT Tel , Service support ,
--- NOTE | 2019-12-31 18:19 | ED.DCSUM_ITS ---
- ER Visit Summary Date of Service: 12/31/19 Chief Complaint: Right calf pain History of Present Illness: The patient is a 54 M who presents with right calf pain is been getting worse since yesterday. Patient states he is concerned over possible DVT. Patient had DVT in the past when he was receiving chemotherapy for thyroid cancer and colon cancer. Patient states he was treated with subcutaneous heparin at that time. Patient states his pain is aching and cramping. Patient states it is worse with walking. Patient denies any paresthesias or weakness. Patient has not currently receiving chemotherapy. Physical Examination: Vital signs are stable except for an elevated blood pressure 195/116. Patient is afebrile. Patient is in no acute distress. Oral mucosa is pink and moist. Neck is supple. Trachea is midline. There is no JVD. Heart was regular rate and rhythm. Lungs are clear and equal bilaterally. Abdomen is soft. Bowel sounds are normal. There is no tenderness. Extremities are intact. There is some tenderness over the right calf. There is some mild pain with dorsiflexion of the right ankle. Pedal pulses are equal bilaterally. Cranial nerves II through XII are intact. Strength is 5/5 bilaterally. There are no sensory deficits. Test Results: Venous duplex of the right lower extremity was obtained. There is a nonocclusive DVT in the popliteal vein. This was interpreted by the radiologist. Emergency Department Course and Treatment: Findings were discussed with the patient. Patient will be started on Eliquis. Patient will be given his first dose here. Patient was given a prescription for Eliquis. Patient was instructed to follow-up with his primary care physician in 5 to 7 days. Patient understood and was agreeable with the plan. All questions were answered. Disposition: Discharge home Impression: DVT right lower extremity This note was generated with [employer] dictation software. It may contain incorrect words, spelling, and punctuation that were not noted in review of the chart prior to signing ED Disposition - Plan for ED Patient: Disposition: Home or Assisted Living Diagnosis: Acute deep vein thrombosis (DVT) of popliteal vein of right lower extremity Instructions: ED DVT Prescriptions: Apixaban [Eliquis] 5 mg PO BID #74 tab Prescription Printed Referrals: Fuad Muñoz DO [Primary Care Provider] - 5-7 Days
[2019-12-31] MEDS: APIXABAN 5 MG TABLET 10 MG PO (20:22)
[2019-12-31 20:28] VITALS: BP 169/88; PULSE 64; RESP 18; O2SAT 99
== END 2019-12-31 20:28 | disposition home or self-care (01) ==
PROVIDERS: Emergency Provider Emergency Medicine; PCP Family Medicine
DX: I82.431 Acute embolism and thrombosis of right popliteal vein (principal); Z86.718 Personal history of other venous thrombosis and embolism; Z85.038 Personal history of other malignant neoplasm of large intestine; Z85.850 Personal history of malignant neoplasm of thyroid
CPT/HCPCS: 93971; 99283

== ENCOUNTER → 2020-02-29 15:28 | Outpatient (CLI) | payer BC, SELFPAY ==
--- NOTE | 2020-02-29 15:34 | US_ITS ---
STUDY: THYROID ULTRASOUND REASON FOR EXAM: Male, 54 years old. THYROID CA S/P THYROIDECTOMY OCTOBER 2018 TECHNIQUE: Ultrasound evaluation of the thyroid was performed with real-time and static pete-scale imaging. COMPARISON: None. FINDINGS: There is no observable thyroid tissue status post thyroidectomy. . There is a mildly enlarged right submandibular node measuring 1.7 x 1.2 x 2.6 cm. There is a mildly enlarged left submandibular node measuring 1.2 x 1.3 x 0.5 cm. There is a mildly enlarged node in the right mid neck measuring 1.3 x 1.3 x 2.6 cm US/Thyroid IMPRESSION: No residual thyroid tissue status post thyroidectomy.. Mildly enlarged cervical nodes of uncertain significance. Dedicated CT of the neck with contrast or MRI would be helpful for further evaluation if indicated Electronically Signed: Ricky Richey MD at 18:11 EDT , Service support ,
== END ==
PROVIDERS: PCP Family Medicine; Referring Provider Internal Medicine Endocrinology, Diabetes & Metabolism; Visit Provider Internal Medicine Endocrinology, Diabetes & Metabolism
DX: C73 Malignant neoplasm of thyroid gland (principal); E03.9 Hypothyroidism, unspecified; E78.5 Hyperlipidemia, unspecified; E55.9 Vitamin D deficiency, unspecified; Z85.048 Personal history of other malignant neoplasm of rectum, rectosigmoid junction, and anus
CPT/HCPCS: 76536

== ENCOUNTER → 2020-04-22 07:44 | Outpatient (CLI) | payer BC, SELFPAY ==
[2020-04-22 08:53] LABS: Hemoglobin A1c 5.4 % (3.8-5.6)
[2020-04-22 08:56] LABS: AST(SGOT) 20 U/L (15-37); Alanine Aminotransfer ALT/SGPT 30 U/L (16-61); Albumin, Serum 3.8 g/dL (3.2-5.0); Alkaline Phosphatase 76 U/L (45-117); Anion Gap 4 (5-15); BUN 14 mg/dL (7-18); BUN/Creat Ratio 16.3 RATIO (10-20); Calcium,Total 8.3 mg/dL (8.5-10.1); Chloride 108 mmol/L (98-107); Cholesterol 308 mg/dL (200); Creatinine, Serum 0.86 mg/dL (0.70-1.30); EST Glomerular Filtration Rate 98 mL/min (>60); Est Glom Filt Rate - Afr Amer 118 mL/min (>60); Free T3 3.2 pg/mL (2.18-3.98); Globulin 3.8 g/dL (2.2-4.2); Glucose 95 mg/dL (74-106); High Density Lipoprotein 41 mg/dL; Potassium 3.8 mmol/L (3.5-5.1); Protein, Total 7.6 g/dL (6.4-8.2); Sodium Level 141 mmol/L (136-145); T4 Free Direct 1.36 ng/dL (0.76-1.46); Thyroid Stim Hormone (TSH) 0.16 uIU/mL (0.358-3.74); Triglycerides 139 mg/dL; Very Low Density Lipoprotein 28 mg/dL (5-40)
[2020-04-24 16:08] LABS: Thyroid Peroxidase AB 22 IU/mL (0-34)
[2020-04-24 20:51] LABS: Thyroglobulin Antibody < 1.0 IU/mL (0.0-0.9)
[2020-04-24 20:52] LABS: Anti-Thyroglobulin AB < 1.0 IU/mL (0.0-0.9); Thyroglobulin, Serum Qt. < 0.1 ng/mL (1.4-29.2); Thyroid Peroxidase AB 20 IU/mL (0-34)
== END ==
PROVIDERS: PCP Family Medicine; Referring Provider Internal Medicine Endocrinology, Diabetes & Metabolism; Visit Provider Internal Medicine Endocrinology, Diabetes & Metabolism
DX: C73 Malignant neoplasm of thyroid gland (principal); E03.9 Hypothyroidism, unspecified; E78.5 Hyperlipidemia, unspecified; E55.9 Vitamin D deficiency, unspecified; Z85.048 Personal history of other malignant neoplasm of rectum, rectosigmoid junction, and anus
CPT/HCPCS: 36415; 80053; 80061; 83036; 84432; 84439; 84443; 84481; 86376; 86800

== ENCOUNTER → 2020-12-14 06:38 | Outpatient (CLI) | payer BC, SELFPAY ==
[2020-11-30 15:12] VITALS: BMI 37.8
--- NOTE | 2020-12-14 10:03 | STRESSREP_ITS ---
Stress Test Report Date: 12-14-2020 Procedure: Pharmacologic stress nuclear imaging study Indications: Shortness of breath/dyspnea on exertion; chest discomfort; SVT Consent: Per the patient Procedure: The patient underwent pharmacologic (Regadenoson 0.4mg ) evaluation with a peak heart rate of 108 beats per minute (66%predicted maximal heart rate) and a peak blood pressure of 150/100 mmHg. The baseline ECG demonstrated sinus rhythm; poor R wave progression. The peak pharmacologic ECG demonstrated no obvious ECG changes. There was an occasional PAC in recovery. There was no complaint of chest discomfort during pharmacologic infusion or recovery. The examination was discontinued secondary to completion of protocol. Impression: 1. Pharmacologic (Regadenoson) evaluation 2. Peak pharmacologic ECG with no obvious ECG changes. 3. There was an occasional PAC in recovery. 4. Nuclear images pending Myocardial perfusion imaging study: Technique: The patient was injected with 14.8 millicuries of technetium 99m Cardiolite and subsequently rest SPECT Cardiolite nuclear imaging was obtained in the horizontal long, vertical long, and short axis views. The patient underwent pharmacologic (Regadenoson) evaluation with a peak heart rate of 108 beats per minute (66% percent predicted maximal heart rate) and a peak blood pressure of 150/100 mmHg. The patient was injected with 44.7 millicuries of technetium 99m Cardiolite and subsequently stress SPECT Cardiolite nuclear imaging was obtained in the horizontal long, vertical long, and short axis views. A gated Cardiolite study at peak stress was not obtained. Interpretation: Rest and stress SPECT Cardiolite nuclear imaging status post realignment, normalization, and attenuation correction demonstrate at rest a small area of diminished myocardial perfusion/tracer uptake near the apical segments and status post stress the appearance of diminished absence of myocardial perfusion/tracer uptake in portions of the mid to distal anterior, mid to distal anteroseptal, anteroapical, and septal apical segments. A gated Cardiolite study at peak stress was not obtained. Impression: 1. Rest and stress SPECT her nuclear imaging demonstrate findings potentially compatible with an element of physiologic apical thinning, however, an element of previous myocardial injury/infarction involving portions of the apex cannot viscera be excluded, as well as post stress changes compatible with an area of stress-induced myocardial ischemia involving portions of the mid to distal anterior, mid to distal anteroseptal, anterior apical, and septal apical segments. 2. A gated Cardiolite study at peak stress was not obtained. This note was generated with [employer] software. It may contain incorrect words, spelling, and punctuation that were not noted in checking the note before signing.
== END ==
PROVIDERS: PCP Family Medicine; Referring Provider Internal Medicine Cardiovascular Disease; Visit Provider Internal Medicine Cardiovascular Disease
DX: R06.09 Other forms of dyspnea (principal)
CPT/HCPCS: 78452; 93017; A9500; A4216; J2785

== ENCOUNTER 2020-12-29 10:16 | Observation (INO) | payer BC, SELFPAY ==
[2020-11-30 15:12] VITALS: BMI 37.8
[2020-12-20 08:55] VITALS: BMI 37.8
[2020-12-20 10:09] LABS: Hematocrit 41.4 % (40-54); Hemoglobin 14.2 g/dL (13.0-16.5); Mean Corp Hgb Conc 34.3 g/dL (32-36); Mean Corpuscular Hgb 31.2 pg (27.0-32.0); Mean Platelet Vol. 10.3 fl (6.2-12.0); Platelet Count 184 K/mm3 (150-450); RBC Distribution Width CV 12.6 % (11.6-14.6); RBC Distribution Width SD 41.7 fl (35.1-43.9); Red Blood Count 4.55 M/mm3 (4.6-6.2); White Blood Count 5.9 K/mm3 (4.4-11.0)
[2020-12-20 10:29] LABS: International Normalized Ratio 1.1; Prothrombin Time (Protime)PT. 13.6 SECONDS (11.7-14.9)
[2020-12-20 10:31] LABS: Partial Thromboplast Time 32.7 Seconds (24.1-36.2)
[2020-12-20 11:00] LABS: Anion Gap 6 (5-15); BUN 16 mg/dL (7-18); BUN/Creat Ratio 18.7 RATIO (10-20); Calcium,Total 8.3 mg/dL (8.5-10.1); Chloride 108 mmol/L (98-107); Creatinine, Serum 0.86 mg/dL (0.70-1.30); EST Glomerular Filtration Rate 98 mL/min (>60); Est Glom Filt Rate - Afr Amer 118 mL/min (>60); Glucose 97 mg/dL (74-106); Potassium 3.6 mmol/L (3.5-5.1); Sodium Level 142 mmol/L (136-145)
[2020-12-28 08:21] VITALS: BMI 37.7
--- NOTE | 2020-12-28 19:11 | HP.PCM_ITS ---
History and Physical Date of Admission: 12/29/20 [facility] [address] [place] [address] OFFICE VISIT Date of Service:? 11/30/20 MR#: [id number] Acct: [id number] Name:EDDIE GOLD Rep #: [id number] : 1965 Provider: Dr. Fuad Anderson MD Age/Sex:? 54/M Location: [facility] Status: Signed HPI HPI History of Present Illness Details: This is a 54-year-old white male who presents today for outpatient cardiovascular consultation based upon concerns of shortness of breath/dyspnea on exertion. He states the timing of this coincided with respect to his diagnosis of thyroid carcinoma and the need for radioactive therapy earlier this year performed at [facility]. He states over time he has felt that he is more short of breath and dyspneic with exertional activity. He does not describe orthopnea or PND or peripheral pitting edema. He does not describe any other concerning chest discomfort other than the sensation that occurs when he becomes short of breath and dyspneic with activity. He states this is limited his ability to be active outside and/or participate in activities with his family/children. It appears he had an ECG by his PCP on 07-26-2020. At that time he was in sinus rhythm with PACs. He had a repeat ECG today. Again he was noted to be in sinus rhythm with PACs. He had poor R wave progression. He states he underwent a 24-hour Holter monitor. To his report it demonstrated sinus rhythm with PACs and an episode of nonsustained SVT. According to the report available for review it stated that there was sinus rhythm with PACs and PVCs and a 12 beat episode of a nonsustained supraventricular tachycardia at 129 bpm. There were no symptoms reported. He did have a transthoracic echocardiogram performed through his PCP on 09-12-2020. Per the report it stated that the left ventricle was normal with an LVEF 64%, the right ventricle was moderately dilated and moderately decreased and systolic function. The atria were listed as normal in size. There was no significant valvular lesions reported. There was a comment for alternate cardiac imaging based upon this being a technically difficult and poor quality image study. He does not recall going through any other cardiovascular testing in the past. He states he does have a history of DVT. He has been treated with anticoagulant therapy. He states based upon 2 episodes of DVT he has remained on anticoagulant therapy. He states his primary care physician may be considering performing additional pulmonary evaluation on him based upon his symptoms and findings. However he states the best of his knowledge is been no formal pulmonary evaluation initiated thus far. Intake Vital Signs ? 11/30/2114:12 Height 5 ft 10 in Weight: 263 lb 5 oz BMI 37.8 BP 152/94 H Blood Pressure Location Lt brachial Position Sitting Respiration 16 Pulse 68 Pulse Source Auscultation Intake Visit Reasons:?Shortness of breath Sales Floor Team Leader Required: No Accompanied by: Self Allergies codeine Allergy (Severe, Verified 11/30/20 15:16) anaphylaxisampicillin Allergy (Unknown, Verified 11/30/20 15:16) Unknownaspirin Adverse Reaction (Verified 11/30/20 15:16) Upset Stomachnaproxen sodium [From Aleve] Adverse Reaction (Verified 11/30/20 15:16) Upset Stomach Medications apixaban 5 mg PO BID #74 tab 12/31/19 [Rx Confirmed 11/30/20] amlodipine 5 mg tablet 5 mg PO DAILY 11/27/20 [History Confirmed 11/30/20] losartan 50 mg tablet 50 mg PO DAILY #1 tablet 11/27/20 [Rx Confirmed 11/30/20] levothyroxine 100 mcg tablet 150 mcg PO DAILY@0600? tablet 11/30/20 [History] multivitamin 1 tab PO DAILY 11/30/20 [History Confirmed 11/30/20] PFSH Medical History? Essential hypertension History of DVT (deep vein thrombosis) History of rectal or anal cancer Hyperlipidemia Papillary thyroid carcinoma (~07/2018) Premature atrial contraction SVT (supraventricular tachycardia) Thyroid nodule Surgical History? History of colectomy History of colonoscopy (~08/2013) History of colonoscopy (~08/2014) History of hernia repair (~03/2016) History of thyroidectomy (~10/2018) History of ventral hernia repair Status post biopsy of thyroid gland (~07/2018) Family History? Mother Breast cancerFather Kidney disease Social History? Smoking Status:? Former smoker alcohol intake:? never substance use type:? does not use caffeine:? Yes Type: coffee Number of servings: 6 ROS Const Const: Positive for fatigue; Negative for weakness, frequent falls, excessive sweating, weight gain or weight loss Eyes Eyes: Negative for transient loss of vision, blurry vision or change in vision ENT ENT: Negative for dizziness or balance problems Cardio Chest Pain: No Palpitations: No Edema: None Muscle aches with walking: None Resp Respiratory: Positive for SOB with activity (New; slowly improving); Negative for SOB at rest GI GI: Negative vomiting or vomiting blood/hematemesis : Negative for hematuria Musc Musc: Negative for muscle aches/ myalgia, muscle weakness, joint pain or balance problems Skin Skin: Negative non-healing lesions or rash Neuro Neuro: Negative for dizziness, lightheadedness, orthostatic symptoms, frequent falls, weakness or blurry vision Max Hematologic/Lymphatic: Negative for easy bleeding Endo Endo: Positive for fatigue; Negative for excessive sweating Psych Psych: Negative for anxiety or depression Allergy Allergy/Immunology: Negative for hives and Negative for rash Cardiology Exam Const Appearance: cooperative, healthy appearing, comfortable, no acute distress, well developed and well groomed Nutritional Appearance: obese Orientation: alert, awake and oriented x3 Head Head: normal to inspection, normocephalic and atraumatic Ears: hearing grossly normal bilaterally Nose: external nose normal Face and Sinus: face symmetric Eyes Eyelids: eyelids normal Conjunctivae: conjunctivae normal Pupils: PERRL EOM: EOM intact bilaterally Neck Neck: normal visual inspection and full ROM Carotids: normal carotid upstroke Chest Chest inspection: normal inspection of the chest, symmetric chest movement and normal respiratory effort Auscultation: Bilateral: Clear to Auscultation Cardio Palpation: normal PMI Rate: regular rate Rhythm: regular rhythm Heart sounds: S1 normal and S2 normal GI GI: normal to inspection, soft, bowel sounds present and obese Neuro General: patient alert, patient awake, patient oriented x3 and moves all extremities Skin Skin: no rashes or lesions noted Extremities Pulses: Normal: Right Radial Pulse and Left Radial Pulse Lower Extremity Edema: None: Bilateral Psych Psychological: normal affect Coding Level of Care Code Off vis,new,level 4 Diagnoses Shortness of breath? R06.02 SVT (supraventricular tachycardia)? I47.1 Premature atrial contraction? I49.1 Essential hypertension? I10 Hyperlipidemia? E78.5 ? ? ? Hyperlipidemia type: unspecified History of DVT (deep vein thrombosis)? Z86.718 Coding Level of Care Code Off vis,new,level 4 Diagnoses Shortness of breath? R06.02 SVT (supraventricular tachycardia)? I47.1 Premature atrial contraction? I49.1 Essential hypertension? I10 Hyperlipidemia? E78.5 ? ? ? Hyperlipidemia type: unspecified History of DVT (deep vein thrombosis)? Z86.718 Supplemental Info Supplemental Information Labs: ?? ? LDL Cholesterol 239 mg/dL (0-130)? H ?? ? HDL Cholesterol 41 mg/dL (40-) ?? ? Triglycerides 139 mg/dL (-199) ?? ? VLDL Cholesterol 28 mg/dL (5-40) Diagnostics: ?? ? Electrocardiogram ? Pulmonary: ?? ? No Data to Display COVID (Procedure Consent) Procedure Criteria Procedure Criteria: Yes Elective?The surgeon/proceduralist and patient have discussed in detail the risk of exposure to and/or potential harm posed by the COVID-19 virus with having a surgery/procedure at this time versus the risk of? delaying the surgery/procedure. It is not possible to know either the risk of delaying the surgery or procedure or chance of getting an infection with perfect accuracy, but a joint decision was made between the patient and the surgeon/proceduralist ?to proceed at this time with the scheduled surgery/procedure as indicated on the consent form. Assessment and Plan Assessment and Plan (1) Shortness of breath: ?Plan - Dr. Fuad Anderson MD: At the present time the patient will be further evaluated. This will include attempt to retrieve any of his previous medical records that may assist with his ongoing care. We will also include an attempted an exercise tolerance test/imaging study which would include an myocardial perfusion scan, noting the technical difficulty with his previous echocardiographic image, to evaluate for any obvious evidence of myocardial ischemia that would warrant further evaluation and care. Depending upon his findings he may or may not need further evaluation in the cardiac catheterization laboratory. Also depending upon his findings, and the report of the previous echocardiogram, he may eventually need a cardiac MRI to further evaluate his ventricular anatomy and function. (2) SVT (supraventricular tachycardia): ?Status:?Acute ?Plan - Dr. Fuad Anderson MD: He did have what was reported as 112 beat episode of an SVT. There were no symptoms reported. He appears to be symptomatically and hemodynamically stable at the moment. He will continue his current medical therapy on proceed with his noninvasive valuation as noted above. (3) Premature atrial contraction: ?Status:?Acute ?Plan - Dr. Fuad Anderson MD: He does have a history of what is been reported as PACs/PVCs. Again he appears without any acute symptoms at this time. He will continue his current medical therapy and follow-up as noted above. (4) Essential hypertension: ?Status:?Chronic ?Ashok - Dr. Fuad Anderson MD: He will continue medical management with adjustment as deemed appropriate. (5) Hyperlipidemia: ?Status:?Chronic ?Qualifiers: ?Hyperlipidemia type:?unspecified? Qualified Code(s):?E78.5 - Hyperlipidemia, unspecified ?Plan - Dr. Fuad Anderson MD: A copy of his most recent lipid labs will be appreciated for continuity of care. He does state that in the past he has had lipid labs performed which were abnormal. He states after the diagnosis of his colon carcinoma he elected not to pursue further lipid evaluation and/or medical therapy. (6) History of DVT (deep vein thrombosis): ?Status:?Acute ?Plan - Dr. Fuad Anderson MD: He does have a history of DVT x2. He states he was told he would be on anticoagulant therapy indefinitely. To the best of his knowledge he has not had any history of pulmonary emboli. Plan Details Additional Comments: The above was discussed with him. He was agreeable to this approach. Thank you for allowing us to participate in the patients plan of care, if you have any questions please do not hesitate to call. This note was generated with [employer] dictation software. It may contain incorrect words, spelling, and punctuation that were not noted in checking the note before signing. Follow Up: ? ? 11/30/20?(copy of [facility] records) ? ? 11/30/20?(copy of [facility]) ? ? 11/30/20?(copy of PCP lipid labs) ? ? 6 Weeks?(PFM) 11/30/20 3947 <Electronically signed by Fuad Anderson MD> Date Fuad Anderson MD Cosigner Signature: Date (if applicable) CC:? Dr. Fuad Muñoz, DO ~ I have examined the patient the following changes are noted: The patient subsequently underwent evaluation with exercise tolerance test/imaging study. The results are noted below. Stress Test Report Date: 12-14-2020 Procedure: Pharmacologic stress nuclear imaging study Indications: Shortness of breath/dyspnea on exertion; chest discomfort; SVT Consent: Per the patient Procedure: The patient underwent pharmacologic (Regadenoson 0.4mg ) evaluation with a peak heart rate of 108 beats per minute (66%predicted maximal heart rate) and a peak blood pressure of 150/100 mmHg. The baseline ECG demonstrated sinus rhythm; poor R wave progression. The peak pharmacologic ECG demonstrated no obvious ECG changes. There was an occasional PAC in recovery. There was no complaint of chest discomfort during pharmacologic infusion or recovery. The examination was discontinued secondary to completion of protocol. Impression: 1. Pharmacologic (Regadenoson) evaluation 2. Peak pharmacologic ECG with no obvious ECG changes. 3. There was an occasional PAC in recovery. 4. Nuclear images pending Myocardial perfusion imaging study: Technique: The patient was injected with 14.8 millicuries of technetium 99m Cardiolite and subsequently rest SPECT Cardiolite nuclear imaging was obtained in the horizontal long, vertical long, and short axis views. The patient underwent pharmacologic (Regadenoson) evaluation with a peak heart rate of 108 beats per minute (66% percent predicted maximal heart rate) and a peak blood pressure of 150/100 mmHg. The patient was injected with 44.7 millicuries of technetium 99m Cardiolite and subsequently stress SPECT Cardiolite nuclear imaging was obtained in the horizontal long, vertical long, and short axis views. A gated Cardiolite study at peak stress was not obtained. Interpretation: Rest and stress SPECT Cardiolite nuclear imaging status post realignment, normalization, and attenuation correction demonstrate at rest a small area of diminished myocardial perfusion/tracer uptake near the apical segments and status post stress the appearance of diminished absence of myocardial perfusion/tracer uptake in portions of the mid to distal anterior, mid to distal anteroseptal, anteroapical, and septal apical segments. A gated Cardiolite study at peak stress was not obtained. Impression: 1. Rest and stress SPECT her nuclear imaging demonstrate findings potentially compatible with an element of physiologic apical thinning, however, an element of previous myocardial injury/infarction involving portions of the apex cannot viscera be excluded, as well as post stress changes compatible with an area of stress-induced myocardial ischemia involving portions of the mid to distal anterior, mid to distal anteroseptal, anterior apical, and septal apical segments. 2. A gated Cardiolite study at peak stress was not obtained. The patient has been recommended for further evaluation with diagnostic cardiac catheterization. The procedure and risk were discussed with the patient. He was agreeable to this approach. The surgeon/proceduralist and patient have discussed in detail the risk of exposure to and/or potential harm posed by the COVID-19 virus with having a surgery/procedure at this time versus the risk of delaying the surgery/procedure.? It is not possible to know either the risk of delaying the surgery or procedure or chance of getting an infection with perfect accuracy, but a joint decision was made between the patient and the surgeon/proceduralist to proceed at this time with the scheduled surgery/procedure as indicated on the consent. I have re-examined the patient. There are no clinical changes since date of exam.
[2020-12-29] VITALS (14 sets, daily range): BP systolic 107–157; BP diastolic 62–102; PULSE 54–95; RESP 16–18; TEMP 36.6–36.9; O2SAT 94–98
--- NOTE | 2020-12-29 10:29 | CL.D_ITS ---
Patient Name: EDDIE LINK Study Date: 12/29/2020 Performing: Fuad Anderson MD Ht: 70 inches 178 cm : 1965 Wt: 262.7 lbs 119 kg Age: 55 Gender: male BSA: 2.34 PROCEDURE(S) PERFORMED [id number] W OR WO PTCA, SINGLE CORONARY ARTERY [id number], CORONARY OR GRAFT, INITIAL VESSEL [id number] W OR WO PTCA, SINGLE CORONARY ARTERY CLINICAL PROFILE AND INDICATIONS Indications: Worsening Angina, Suspected CAD Heart Failure: None Stress/Imaging Date: 12/14/2020tress Test with SPECT MPI: Positive Intermediate Risk Angina Classification Anginal Classification w/in 2 Weeks: CCS III CAD Presentations: Other: dyspnea on exertion CONCLUSIONS Elevated Left Ventricular End Diastolic Pressure Normal LV size, wall motion,and systolic function LVEF: by LV gram 65 % [place] Multivessel CAD RECOMMENDATIONS Risk factor modification Medical therapy Referred for immediate PCI DESCRIPTION OF PROCEDURE The patient arrived to the procedure lab. The risks and benefits of the procedure as well as a full d escription of our services here and current unavailability of surgical backup were fully explained to the patient and/or their significant other prior to the catheterization. The Timeout was completed, verifying the correct patient and procedure. The patient's procedural site was prepped and draped in the usual fashion. Local anesthetic was given subcutaneously to right groin region with Lidocaine 2%. Using a modified Seldinger technique, arterial access was obtained via the right femoral artery, a 4 Fr sheath was inserted Left Coronary Artery selective angiography was performed in multiple views us ing a 4 Fr. JL5 catheter. Right Coronary Artery selective angiography was then performed in multiple views using a 4 Fr. 3DRC catheter. Right Coronary Artery selective angiography was then performed in multiple views using a 4 Fr. JR4 catheter. Left Ventriculography was performed in PATINO projection using a 4 Fr. Pigtail catheter. LV to AO pullback pressures were then recorded.Contrast wa s injected through the sheath and the Right Iliac and Femoral artery were assessed for possible closu re device.The arterial sheath was pulled and a Perclose closure device was deployed for hemostasis CORONARY ANGIOGRAPHY DOMINANCE: Right Dominant LEFT HEART ASSESSMENT Left Ventricular Ejection Fraction: by LV Gram 65 % Normal LV wall motion Elevated Left Ventricular End Diastolic Pressure LVEDP: 17 mmHg LEFT MAIN: Angiographically normal LEFT ANTERIOR DESCENDING ARTERY: PROX LAD: Mild luminal irregularities MID LAD: s/p SP and DX: 99 % Stenosis CIRCUMFLEX ARTERY: Mild luminal irregularities PROX CIRC: eccentric: 75 % Stenosis OM 1: Proximal - Mild luminal irregularities, Mid - Mild luminal irregularities RIGHT CORONARY ARTERY: Mild luminal irregularities ACUTE MARGINAL: Mild luminal irregularities, 75 % Stenosis AORTIC ROOT: Angiographically normal COMPLICATIONS No Complications PROCEDURE MEDICATIONS Versed 1 mg IV Fentanyl 50 mcg IV Versed 1 mg IV Oxygen: 2 L/min via nasal cannula Baby Aspirin (81mg) 1 Tabs PO @ 12/29/2020 07:04:46 Heparin 6000 unit(s) IV 12/29/2020 08:41:39 Heparin 3000 unit(s) IV 12/29/2020 09:12:57 Heparin 2000 unit(s) IV 12/29/2020 09:52:08 Nitro 200 mcg IC 12/29/2020 09:07:15 Plavix 75 mg PO 12/29/2020 07:04:53 Plavix 225 mg PO 12/29/2020 09:45:31 IV Bolus: .9 NaCl 500 ml total 12/29/2020 09:55:49 SUMMARY OF HEMODYNAMIC DATA Time AIR REST ECG 07:05:06 AO 160/90 (127) SA 07:53:03 LV 171/-2, 22 08:09:10 LV 165/0, 17 08:09:17 LV 167/-6, 30 08:10:23 LVp 164/-3, 28 08:10:28 AOp 175/98 (132) 08:10:33 Signed By Fuad Anderson MD On 12/29/2020 10:28:47 Fuad Anderson MD
--- NOTE | 2020-12-29 10:30 | EKG12_ITS ---
Test Reason : REPEAT Blood Pressure : / mmHG Vent. Rate : 058 BPM Atrial Rate : 058 BPM P-R Int : 160 ms QRS Dur : 092 ms QT Int : 428 ms P-R-T Axes : 033 -16 033 degrees QTc Int : 420 ms Sinus bradycardia with sinus arrhythmia Otherwise normal ECG When compared with ECG of 21-OCT-2018 10:20, Nonspecific T wave abnormality now evident in Anterior leads Confirmed by TINO ADAM, VANGIE ([id number]), web editor AUDRA QUINN ([id number]) on 01/02/2021 2:05:20 PM Referred By: Fuad Anderson Confirmed By:VANGIE JIMÉNEZ MD
--- NOTE | 2020-12-29 10:33 | PCI.CARDCATH ---
PCI Cardiac Cath Report PCI Report: Procedure performed; 1. Successful PCI of high-grade mid LAD stenosis 99%, with predilatation followed by placement of drug-eluting stent Biotronic/orsorio 2.75 x 26 mm overlap with 2.5 x 13 mm And achievement of excellent result. Preprocedure ALEXANDRA III flow and maintain ALEXANDRA-3 flow post procedure. With reduction of stenosis to 0%. 2. Successful PCI of high-grade 80% stenosis of the mid large left circumflex, guided with IVUS with predilatation using 3 mm balloon followed by placement of drug-eluting stent Biotronik/Orsrio 4 x 18 mm Post dilated using NC balloon 4.5 x 15 mm and achievement of excellent result, post stent using IVUS showed good apposition of the stent. Initial ALEXANDRA III flow in the left circumflex, maintained ALEXANDRA-3 flow post procedure. 3. Successful placement of Perclose to close the right common femoral artery arteriotomy site. Preprocedure patient is a 54-year-old, with history of shortness of breath on exertion, recently diagnosed with carcinoma of thyroid at [facility] treated with the radioactive therapy Underwent evaluation by stress test at his primary filteration operator office Dr. Anderson, stress test is abnormal with evidence of reversible myocardial ischemia in the LAD distribution. Underwent cardiac catheterization, I reviewed the angiographic findings, showed significant atherosclerosis of the mid LAD and a focal 80% stenosis of the large mid left circumflex artery LV systolic function is preserved. Consent; Risk, benefit of the procedure explained in detail to the patient, patient declined coronary artery bypass surgery and elected for two-vessel PCI. Interventional equipment and plan; 1. 3.5 XB guide catheter 2. 0.014 run-through extra floppy 180 cm straight wire 3. Exchange right common femoral artery 4 [place] to 6 [place]ian. 4. Anticoagulation used in the Gear Cutting Machine Set Up Operator with heparin he was given initially a total of 6000 followed by 3000 and at the end of the procedure have 2000. 5. Patient has been already on dual antiplatelet with aspirin and Plavix and was given a booster dose of 300 mg of Plavix in the Gear Cutting Machine Set Up Operator. Procedure in detail; We will proceed with the XB guide advanced to the ascending aorta cannulated the left main coronary ostium without difficulty then under angiographic and fluoroscopic guidance we will proceed with the run-through wire across the lesion in the mid LAD, and will proceed with balloon dilatation using 2 x 15 mm balloon to the mid LAD. Followed by placement of 2.75 x 26 drug-eluting stent, Biotronik/, this was followed by overlap with two 5 x 13 mm drug-eluting stent and we used 2.75 x 20 mm NC balloon post dilatation and achieved excellent result in the mid LAD and maintaining ALEXANDRA-3 flow Following this the same wire which is a run-through wire was used across the lesion in the mid left circumflex which is a large vessel then we followed by using IVUS preprocedure to size the vessel and also to quantify the degree of stenosis MLA of high-grade lesion involving the mid left circumflex of around 2.9 mm?, and we followed by balloon dilatation using 3 x 12 mm balloon, this was followed by placement of drug-eluting stent Biotronik/Orsiro, followed by postdilatation using 4.5 x 15 mm NC balloon, with achievement of excellent result, post stent placement IVUS revealed good apposition of the stent with no evidence of dissection or malposition. Following this selective right common femoral artery angiography obtain and a Perclose used to close arteriotomy site with no complication in the Gear Cutting Machine Set Up Operator. Recommendation; 1. Patient to continue on dual antiplatelet therapy with aspirin and Plavix for 1 year, followed by aspirin indefinitely if no complication. 2. Patient will follow up with his primary filteration operator Dr. Anderson for continuation of cardiac care plan, patient will be scheduled for cardiac rehab phase 1. Stephon Patricia MD,[facility]
--- NOTE | 2020-12-29 10:55 | CRPHASE1_ITS ---
Patient Communication PHII Cardiac Rehab Discussed with Patient:: Yes Guide to Cardiac Rehab Given to Patient:: Yes Cardiac Rehab Facility Choice List Given to Patient:: Yes Choice Program [facility] PHII:: Communication Given to CR Milk Route Supervisor:: Stephon Patricia Phase II Cardiac Rehab:: Yes Sessions:: 36 sessions - 3 days/wk, 12 weeks Cardiac Rehabilitation Info Cardiac Rehabilitation Program Information: Cardiac Rehabilitation is important for patients like you who are recovering from a heart problem. Cardiac rehabilitation programs are recognized as integral to the continued care of the patient with coronary heart disease. The cardiac rehabilitation program is designed to optimize a patient's physical, psychological, and social functioning. Health healthcare administration intern work in cardiac rehabilitation programs and assist you with getting the treatments you need to get stronger and healthier - like exercise, healthy eating habits, and medications. Cardiac rehabilitation has been show to help people with heart problems live longer and have better life enjoyment than people who do not go to cardiac rehabilitation. Please contact the Cardiac Rehabilitation Program at [facility] at in two weeks if you have not heard from them.
--- NOTE | 2020-12-29 10:57 | CRPH1.INSTRU ---
General Education CAD and cardiac anatomy and function:: Patient communicates acknowledgment, Family communicates acknowledgment, Patient returns demonstration, Family returns demonstration Explanation of diagnoses and procedures:: Patient communicates acknowledgment, Family communicates acknowledgment, Patient returns demonstration, Family returns demonstration Sign/Symptoms of AL:: Patient communicates acknowledgment, Family communicates acknowledgment, Patient returns demonstration, Family returns demonstration Antiplatelet therapy: Patient communicates acknowledgment, Family communicates acknowledgment, Patient returns demonstration, Family returns demonstration Proper use of NTG-SL: Patient communicates acknowledgment, Family communicates acknowledgment, Patient returns demonstration, Family returns demonstration Emergency procedures and activation of EMS: Patient communicates acknowledgment, Family communicates acknowledgment, Patient returns demonstration, Family returns demonstration Compliance of all prescribed medications: Patient communicates acknowledgment, Family communicates acknowledgment, Patient returns demonstration, Family returns demonstration Smoking Patient Nicotine/Smoking Risk Factors Are:: Cigarettes Recommendations Include:: Previous smoker; encourage continued cessation Nicotine/Smoking Response Code:: Patient communicates acknowledgment, Family communicates acknowledgment, Patient returns demonstration, Family returns demonstration Dyslipidemia Patient Dyslipidemia Risk Factors Are:: Total Cholesterol, Triglycerides, HDL, LDL Recommendations Include:: Lipid profile not available, Reviewed NCEP/ATP guidelines, Therapeutic Lifestyle Change dietary guidelines Dyslipidemia Response Code:: Patient communicates acknowledgment, Family communicates acknowledgment, Patient returns demonstration, Family returns demonstration Overweight/Obesity Patient Overweight/Obesity Risk Factors Are:: Obesity - > or = 30 Recommendations Include:: Weight loss of 5-10%, Reduced calorie diet, Exercise 5-7 times/week Overweight/Obesity:: Patient communicates acknowledgment, Family communicates acknowledgment, Patient returns demonstration, Family returns demonstration Hypertension Recommendations Include:: Maintain BP <130/85, DASH dietary guidelines, Decrease/maintain normal body weight, Moderation of ETOH Hypertension:: Patient communicates acknowledgment, Family communicates acknowledgment, Patient returns demonstration, Family returns demonstration Heart Disease Patient Heart Disease Risk Factors Are:: Family history of heart disease < 65 years old Recommendations Include:: Educated family members of their risk, Educated family members of importance of prevention of heart disease Heart Disease Response Code:: Patient communicates acknowledgment, Family communicates acknowledgment, Patient returns demonstration, Family returns demonstration Diabetes Patient Diabetes Risk Factors Are:: No documented hx of diabetes Sedentary Patient Sedentary Risk Factors Are:: Lack of regular exercise Recommendations Include:: Aerobic exercise 5-7 times/week for 20-30 minutes continuously, Benefits of regular exercise, Discussed home walking program, Monitored Outpatient Cardiac Rehab Sedentary Response Code:: Patient communicates acknowledgment, Family communicates acknowledgment, Patient returns demonstration, Family returns demonstration Stress Patient Stress Risk Factors Are:: Patient denies stress as a risk factor
[2020-12-29] MEDS: 0.9% Normal Saline 1,000 ML 75 ML IV (11:29)
[2020-12-29] MEDS: amLODIPine 5 MG Tablet PO (13:25)
[2020-12-29] MEDS: Losartan Potassium 50 MG Tablet PO (13:25)
--- NOTE | 2020-12-29 17:03 | PN.CARD_ITS ---
Subjective Subjective The patient is awake and alert. He denies any new acute symptoms or concerns. Objective Data Vital Signs: Vital Signs Temp Pulse Resp BP Pulse Ox 98.0 F 68 16 114/68 97 12/29/20 14:00 12/29/20 16:09 12/29/20 16:00 12/29/20 16:00 12/29/20 16:00 Oxygen Delivery Method Room Air Weight: 263 lb Body Mass Index (BMI) 37.7 Intake & Output: Intake and Output for Last 24 Hours 12/27/20 12/28/20 12/29/20 23:59 23:59 23:59 Output Total 300 / 300 Balance -300 / -300 Lab / Micro Data Result Diagrams: 12/20/20 09:34 12/20/20 09:34 Cardiology Labs/Tests Rhythm: Sinus rhythm Cardiac Cath: CONCLUSIONS Elevated Left Ventricular End Diastolic Pressure Normal LV size, wall motion,and systolic function LVEF: by LV gram 65 % [place] Multivessel CAD RECOMMENDATIONS Risk factor modification Medical therapy Referred for immediate PCI DESCRIPTION OF? PROCEDURE The patient arrived to the procedure lab. The risks and benefits of the procedure as well as a full description of our services here and current unavailability of surgical backup were fully explained to the patient and/or their significant other prior to the catheterization. The Timeout was completed, verifying the correct patient and procedure. The patient's procedural site was prepped and draped in the usual fashion. Local anesthetic was given subcutaneously to right groin region with Lidocaine 2%. Using a modified Seldinger technique, arterial access was obtained via the right femoral artery, a 4Fr sheath was inserted? Left Coronary Artery selective angiography was performed in multiple views using a 4 Fr. JL5 catheter. Right Coronary Artery selective angiography was then performed in multiple views using a 4 Fr. 3DRC catheter. Right Coronary Artery selective angiography was then performed in mu ltiple views using a 4 Fr. JR4 catheter. Left Ventriculography was performed in PATINO projection using a 4 Fr. Pigtail catheter. LV to AO pullback pressures were then recorded.Contrast was injected through the sheath and the Right Iliac and Femoral artery were assessed for possible closure device.The arterial sheath was pulled and a Perclose closure device was deployed for hemostasis CORONARY ANGIOGRAPHY DOMINANCE:? Right Dominant LEFT HEART ASSESSMENT Left Ventricular Ejection Fraction: by LV Gram 65 % Normal LV wall motion Elevated Left Ventricular End Diastolic Pressure LVEDP: 17 mmHg LEFT MAIN: Angiographically normal LEFT ANTERIOR DESCENDING ARTERY: PROX LAD: Mild luminal irregularities MID LAD: s/p SP and DX: 99 % Stenosis CIRCUMFLEX ARTERY: Mild luminal irregularities PROX CIRC: eccentric: 75 % Stenosis OM 1: Proximal - Mild luminal irregularities, Mid - Mild luminal irregularities RIGHT CORONARY ARTERY: Mild luminal irregularities ACUTE MARGINAL: Mild luminal irregularities, 75 % Stenosis AORTIC ROOT: Angiographically normal PCI: PCI Cardiac Cath Report PCI Report:?Procedure performed; 1.? Successful PCI of high-grade mid LAD stenosis 99%, with predilatation followed by placement of drug-eluting stent Biotronic/orsorio 2.75 x 26 mm overlap with 2.5 x 13 mm And achievement of excellent result.? Preprocedure ALEXANDRA III flow and maintain ALEXANDRA-3 flow post procedure.? With reduction of stenosis to 0%. 2.? Successful PCI of high-grade 80% stenosis of the mid large left circumflex, guided with IVUS with predilatation using 3 mm balloon followed by placement of drug-eluting stent Biotronik/Orsrio 4 x 18 mm Post dilated using NC balloon 4.5 x 15 mm and achievement of excellent result, post stent using IVUS showed good apposition of the stent.? Initial ALEXANDRA III flow in the left circumflex, maintained ALEXANDRA-3 flow post procedure. 3.? Successful placement of Perclose to close the right common femoral artery arteriotomy site. : Physical Exam Const alert, oriented x3, no apparent distress and healthy appearing Orientation / Consciousness: awake HEENT normocephalic and head/scalp atraumatic Eyes PERRL, EOMs intact bilaterally, conjunctivae normal and no scleral icterus Neck full ROM and supple Chest inspection of chest normal Resp normal respiratory effort and clear to auscultation bilaterally Cardio regular rate, regular rhythm, S1 normal heart sound and S2 normal heart sound Cardio Narrative: Ectopic beats Rate: other Rhythm: other GI normal to inspection, nondistended, normoactive bowel sounds Extremity Extremity Narrative: Right inguinal area: Pulse 2+/4+: No bruits reported: No hematoma reported Skin no rashes or lesions noted Psych mental status grossly normal Assessment & Plan Assessment/Plan (1) Atherosclerotic heart disease of [place] coronary artery without angina pectoris: QUALIFIERS: [place] vs. transplanted heart: [place] heart Qualified Code(s): I25.10 - Atherosclerotic heart disease of [place] coronary artery without angina pectoris PLAN: The patient has been diagnosed with CAD. He has undergone further evaluation with PCI. He appears to be recuperating well at this time. He will continue to be monitored. (2) Presence of stent in coronary artery: PLAN: The patient underwent PCI to the LAD/LCx distribution. At the moment he appears to be doing well. He will continue to be monitored. (3) Premature atrial contraction: PLAN: The patient has history of PACs. He will continue medical management and follow-up. (4) Hyperlipidemia: QUALIFIERS: Hyperlipidemia type: unspecified Qualified Code(s): E78.5 - Hyperlipidemia, unspecified PLAN: The patient will continue cardiovascular risk factor evaluation and medical therapy as deemed appropriate. (5) Essential hypertension: PLAN: The patient's blood pressure will be followed with adjustment of medications as necessary (6) History of DVT (deep vein thrombosis): PLAN: The patient has a history of DVT. Status post documenting stabilization of his cardiac catheterization site he will plan to resume anticoagulant therapy. Addt'l Comments Overall, at the present time, the patient will continue to be monitored. He will continue medical therapy/adjustment. Hopefully if the patient remains symptomatically and hemodynamically stable he will be able to be released home on 12-30-2020. The patient's case has been discussed and reviewed with the patient, his spouse, and Dr. Patricia. This note was generated using a voice recognition system and there may be incorrect words, spelling or punctuation that were not noted when reviewing the office note prior to saving.
[2020-12-29] MEDS: Atorvastatin Calcium 80 MG Tablet PO (21:07)
[2020-12-30 03:00] VITALS: PULSE 71
[2020-12-30 04:00] VITALS: BP 128/71; PULSE 70; RESP 16; TEMP 36.9; O2SAT 96
[2020-12-30 06:24] LABS: Absolute Lymphocyte Count 1.52 X10^3/uL (0.83-4.51); Absolute Neutrophil Count 5.8 X10^3/uL (2.0-7.7); Basophil# 0.03 X10^3/uL; Basophil% 0.4 % (0-1); Eosinophil# 0.11 X10^3/uL; Eosinophils% 1.3 % (0-5); Hematocrit 41.3 % (40-54); Hemoglobin 14.3 g/dL (13.0-16.5); Lymphocyte # 1.52 X10^3/ul (0.83-4.51); Lymphocyte % 18.4 % (19-41); Mean Corp Hgb Conc 34.6 g/dL (32-36); Mean Corpuscular Hgb 31.2 pg (27.0-32.0); Mean Platelet Vol. 10.3 fl (6.2-12.0); Monocyte# 0.76 X10^3/uL; Monocyte% 9.2 % (0-10); NRBC Flagged by Analyzer 0 % (0-5); Neutrophil % 70.5 % (47-70); Platelet Count 187 K/mm3 (150-450); RBC Distribution Width CV 12.5 % (11.6-14.6); Red Blood Count 4.59 M/mm3 (4.6-6.2); White Blood Count 8.2 K/mm3 (4.4-11.0)
[2020-12-30 06:52] LABS: ALB/GLOB Ratio 1.1 RATIO (0.9-2.4); AST(SGOT) 21 U/L (15-37); Alanine Aminotransfer ALT/SGPT 33 U/L (16-61); Albumin, Serum 3.6 g/dL (3.2-5.0); Alkaline Phosphatase 72 U/L (45-117); Anion Gap 6 (5-15); BUN 15 mg/dL (7-18); Calcium,Total 8.3 mg/dL (8.5-10.1); Chloride 108 mmol/L (98-107); Creatinine, Serum 0.94 mg/dL (0.70-1.30); EST Glomerular Filtration Rate 88 mL/min (>60); Est Glom Filt Rate - Afr Amer 107 mL/min (>60); Estimated Creatinine Clearance 89.52 ml/min; Globulin 3.4 g/dL (2.2-4.2); Glucose 101 mg/dL (74-106); Potassium 3.6 mmol/L (3.5-5.1); Sodium Level 142 mmol/L (136-145)
[2020-12-30 06:55] VITALS: PULSE 67
[2020-12-30 07:31] VITALS: O2SAT 95
[2020-12-30] MEDS: APIXABAN 5 MG TABLET PO (08:10)
[2020-12-30] MEDS: Aspirin E.C. 81 MG Tablet PO (08:10)
[2020-12-30] MEDS: amLODIPine 5 MG Tablet PO (08:10)
[2020-12-30] MEDS: Losartan Potassium 50 MG Tablet PO (08:10)
[2020-12-30] MEDS: Clopidogrel Bisulfate 75 MG Tablet PO (08:11)
--- NOTE | 2020-12-30 10:00 | EKG12_ITS ---
Test Reason : POST PCI Blood Pressure : / mmHG Vent. Rate : 070 BPM Atrial Rate : 070 BPM P-R Int : 156 ms QRS Dur : 090 ms QT Int : 386 ms P-R-T Axes : 028 -09 023 degrees QTc Int : 416 ms Sinus rhythm with Premature atrial complexes Poor R wave progression Confirmed by GRAYSON ADAM, FUAD ([id number]), fashion editor AUDRA QUINN ([id number]) on 01/03/2021 1:10:30 PM Referred By: Fuad Galicia Confirmed By:FUAD GALICIA MD
[2020-12-30 10:45] VITALS: BP 128/76; PULSE 71; RESP 16; TEMP 36.7; O2SAT 96
--- NOTE | 2020-12-30 12:35 | PCM.DC ---
Discharge Instructions Diet Discharge Diet: No restrictions Activity Discharge Activity: Return to Normal Activity Follow Up Care Please Follow Up With: PCP When: 2 weeks Test Results: Test results from this visit will be discussed in further detail at your follow-up appointment, if applicable. Discharge Plan Admission Admit Date/Time: 12/29/20 10:16 Primary Reason for Your Visit: CAd with PCI LAD/LCX Attending Provider: Fuad Anderson Primary Care Provider: Fuad Muñoz Instructions Patient Instructions: Cardiac Catheterization Additional Instructions / Restrictions: May return to work after one week or if seen by Dr Anderson before Discharge Orders/Prescriptions Prescriptions: New nitroglycerin 0.4 mg Tablet, Sublingual 0.4 mg sublingual Q5M PRN (Reason: Cardiac/Chest Pain) Qty: 30 RF: 0 Continued levothyroxine 100 mcg tablet 150 mcg PO DAILY@0600 RF: 0 multivitamin Tablet 1 tab PO DAILY RF: 0 clopidogrel 75 mg tablet 75 mg PO DAILY Qty: 30 RF: 3 apixaban 5 MG tablet 5 mg PO BID Qty: 74 RF: 0 amlodipine 5 mg tablet 5 mg PO DAILY RF: 0 losartan 50 mg tablet 50 mg PO DAILY Qty: 1 RF: 0 aspirin [Enteric Coated Aspirin] 81 mg tablet,delayed release (DR/EC) 81 mg PO DAILY RF: 0 Discontinued enoxaparin [Lovenox] 100 mg/mL syringe 100 mg subcut Q12H Qty: 10 RF: 1 Referrals / Follow Up: Fuad Muñoz DO [Primary Care Provider] - (Please call to schedule follow up appointments) Disposition Disposition (needs filled in before D/C Order can be placed): Home, self care
--- NOTE | 2020-12-30 12:43 | DS.PCM_ITS ---
Providers Date of Admission: 12/29/20 Primary Care Physician: Dr. Fuad Muñoz DO Reason For Visit: ABN STRESS,HTN,SVT,SOB Diagnosis Discharge Diagnosis (1) Atherosclerotic heart disease of [place] coronary artery without angina pectoris: Status: Acute Code(s): I25.10 - Atherosclerotic heart disease of [place] coronary artery without angina pectoris Qualifiers: [place] vs. transplanted heart: [place] heart Qualified Code(s): I25.10 - Atherosclerotic heart disease of [place] coronary artery without angina pectoris (2) Presence of stent in coronary artery: Status: Acute Code(s): Z95.5 - Presence of coronary angioplasty implant and graft (3) Premature atrial contraction: Status: Acute Code(s): I49.1 - Atrial premature depolarization (4) Hyperlipidemia: Status: Chronic Code(s): E78.5 - Hyperlipidemia, unspecified Qualifiers: Hyperlipidemia type: unspecified Qualified Code(s): E78.5 - Hyperlipidemia, unspecified (5) Essential hypertension: Status: Chronic Code(s): I10 - Essential (primary) hypertension (6) History of DVT (deep vein thrombosis): Status: Acute Code(s): Z86.718 - Personal history of other venous thrombosis and embolism Medications at Discharge Home Medications apixaban 5 mg PO BID #74 tab 12/31/19 amlodipine 5 mg tablet 5 mg PO DAILY 11/27/20 losartan 50 mg tablet 50 mg PO DAILY #1 tablet 11/27/20 levothyroxine 100 mcg tablet 150 mcg PO DAILY@0600 tablet 11/30/20 multivitamin 1 tab PO DAILY 11/30/20 aspirin 81 mg tablet,delayed release 81 mg PO DAILY 12/19/20 clopidogrel 75 mg tablet 75 mg PO DAILY #30 tab 12/20/20 nitroglycerin 0.4 mg SUBLINGUAL Q5M PRN #30 tab 12/30/20 Physical Exam Narrative Patient seen and palpated today along with the nursing staff. He is stable clinically he does not have any symptoms of chest pain Right groin no evidence of hematoma. Patient alert orientated not in acute distress Cardiac exam essentially normal S1-S2 regular Review of the cardiac telemetry revealed normal sinus rhythm Chest examination is normal auscultation. Examination of the abdomen is soft. Examination lower extremity pedal pulses palpable no lower extremity edema. Right groin no evidence of hematoma. Recommendation and plan; 1. I reviewed and discussed the current medication in detail patient to continue on dual antiplatelet therapy Plavix and aspirin for 1 year and aspirin indefinitely 2. Patient also on apixaban continue current treatment 3. Patient to follow-up with the primary oil gauger Dr. Anderson and also to follow-up with the primary care physician. 4. All current medication discussed with the patient and nursing staff new pr escription for atorvastatin and Plavix was given to the patient. And patient instructed to fill his medication today Const alert, oriented x3 and well nourished General Appearance: cooperative, comfortable, well kempt and well developed Exam Limitations: no limitations HEENT normocephalic Head and Scalp: normal to inspection Face and Sinus: normal facial exam ABG / Lab / Microbiology Data Result Diagrams: 12/30/20 05:53 12/30/20 05:53 Laboratory: Laboratory Results - last 24 hr 12/30/20 12/30/20 05:53 05:53 WBC 8.2 RBC 4.59 L Hgb 14.3 Hct 41.3 MCV 90.0 MCH 31.2 MCHC 34.6 RDW Std Deviation 41.0 RDW Coeff of [place] 12.5 Plt Count 187 MPV 10.3 Immature Gran % (Auto) 0.200 Neut % (Auto) 70.5 H Lymph % (Auto) 18.4 L [place] % (Auto) 9.2 Eos % (Auto) 1.3 Baso % (Auto) 0.4 Absolute Neuts (auto) 5.8 Absolute Lymphs (auto) 1.52 Nucleated RBC % 0 Sodium 142 Potassium 3.6 Chloride 108 H Carbon Dioxide 28.0 Anion Gap 6 BUN 15 Creatinine 0.94 Estim Creat Clear Calc 89.52 Est GFR (MDRD) Af Amer 107 Est GFR (MDRD) Non-Af 88 BUN/Creatinine Ratio 16.0 Glucose 101 Calcium 8.3 L Total Bilirubin 0.70 AST 21 ALT 33 Alkaline Phosphatase 72 Total Protein 7.0 Albumin 3.6 Globulin 3.4 Albumin/Globulin Ratio 1.1 D/C Instructions Discharge Diet: No restrictions Discharge Activity: Return to Normal Activity Please Follow Up With: PCP When: 2 weeks Meaningful Use Info Meaningful Use Diagnoses (Choose all that apply): None applicable Discharge Plan Admission Admit Date/Time: 12/29/20 10:16 Primary Reason for Your Visit: CAd with PCI LAD/LCX Attending Provider: Fuad Anderson Primary Care Provider: Fuad Muñoz Instructions Patient Instructions: Cardiac Catheterization Additional Instructions / Restrictions: May return to work after one week or if seen by Dr Anderson before Discharge Orders/Prescriptions Prescriptions: New nitroglycerin 0.4 mg Tablet, Sublingual 0.4 mg sublingual Q5M PRN (Reason: Cardiac/Chest Pain) Qty: 30 RF: 0 Continued levothyroxine 100 mcg tablet 150 mcg PO DAILY@0600 RF: 0 multivitamin Tablet 1 tab PO DAILY RF: 0 clopidogrel 75 mg tablet 75 mg PO DAILY Qty: 30 RF: 3 apixaban 5 MG tablet 5 mg PO BID Qty: 74 RF: 0 amlodipine 5 mg tablet 5 mg PO DAILY RF: 0 losartan 50 mg tablet 50 mg PO DAILY Qty: 1 RF: 0 aspirin [Enteric Coated Aspirin] 81 mg tablet,delayed release (DR/EC) 81 mg PO DAILY RF: 0 Discontinued enoxaparin [Lovenox] 100 mg/mL syringe 100 mg subcut Q12H Qty: 10 RF: 1 Referrals / Follow Up: Fuad Muñoz DO [Primary Care Provider] - (Please call to schedule follow up appointments) Disposition Disposition (needs filled in before D/C Order can be placed): Home, self care
== END 2020-12-30 12:30 | disposition home or self-care (01) ==
LOC: PCU 14:37 → CLSP 01-02 11:33 → PCU 01-02 11:33
PROVIDERS: Admitting Provider Internal Medicine Cardiovascular Disease; PCP Family Medicine; Referring Provider Internal Medicine Cardiovascular Disease; Visit Provider Internal Medicine Cardiovascular Disease
DX: I25.110 Atherosclerotic heart disease of native coronary artery with unstable angina pectoris (principal); I49.1 Atrial premature depolarization; I47.1 Supraventricular tachycardia; I10 Essential (primary) hypertension; E78.5 Hyperlipidemia, unspecified; Z86.718 Personal history of other venous thrombosis and embolism; Z79.02 Long term (current) use of antithrombotics/antiplatelets; Z79.82 Long term (current) use of aspirin; Z95.5 Presence of coronary angioplasty implant and graft; Z79.01 Long term (current) use of anticoagulants; Z79.899 Other long term (current) drug therapy; Z85.850 Personal history of malignant neoplasm of thyroid; Z85.048 Personal history of other malignant neoplasm of rectum, rectosigmoid junction, and anus; Z87.891 Personal history of nicotine dependence; I49.3 Ventricular premature depolarization
CPT/HCPCS: 36415; 80048; 80053; 85025; 85027; 85610; 85730; 92928; 92978; 93005; 93458; 96360; 96361; 99152; 99153; 99218; J7030; J7040; Q9967; C1725; C1753; C1760; C1769; C1874; C1887; C1894; C9600; G0378; G0379

== ENCOUNTER → 2021-04-07 07:25 | Outpatient (CLI) | payer BC, SELFPAY ==
[2021-04-07 08:34] LABS: AST(SGOT) 24 U/L (15-37); Alanine Aminotransfer ALT/SGPT 45 U/L (16-61); Albumin, Serum 3.4 g/dL (3.2-5.0); Alkaline Phosphatase 72 U/L (45-117); Bilirubin, Direct 0.13 mg/dL (0.00-0.30); Cholesterol 180 mg/dL (200); Globulin 3.8 g/dL (2.2-4.2); High Density Lipoprotein 48 mg/dL; Protein, Total 7.2 g/dL (6.4-8.2); Triglycerides 81 mg/dL; Very Low Density Lipoprotein 16 mg/dL (5-40)
== END ==
PROVIDERS: PCP Family Medicine; Referring Provider Internal Medicine Cardiovascular Disease; Visit Provider Internal Medicine Cardiovascular Disease
DX: I47.1 Supraventricular tachycardia (principal); I49.1 Atrial premature depolarization; I10 Essential (primary) hypertension; E78.5 Hyperlipidemia, unspecified
CPT/HCPCS: 36415; 80061; 80076

== ENCOUNTER → 2023-01-14 | Outpatient (CLI) | payer OTHER, SELFPAY ==
[2023-01-14 15:59] LABS: Absolute Lymphocyte Count 1.95 X10^3/uL (0.83-4.51); Absolute Neutrophil Count 3.8 X10^3/uL (2.0-7.7); Basophil# 0.03 X10^3/uL; Basophil% 0.5 % (0-1); Eosinophil# 0.15 X10^3/uL; Eosinophils% 2.3 % (0-5); Hematocrit 40.3 % (40-54); Hemoglobin 13.7 g/dL (13.0-16.5); Lymphocyte # 1.95 X10^3/ul (0.83-4.51); Lymphocyte % 29.7 % (19-41); Mean Corpuscular Hgb 30.4 pg (27.0-32.0); Mean Corpuscular Volume 89.4 fL (80-94); Mean Platelet Vol. 10.1 fl (6.2-12.0); Monocyte% 9.1 % (0-10); NRBC Flagged by Analyzer 0 % (0-5); Neutrophil # 3.79 X10^3/uL (2.7-7.7); Neutrophil % 57.8 % (47-70); Platelet Count 217 K/mm3 (150-450); RBC Distribution Width CV 13.2 % (11.6-14.6); Red Blood Count 4.51 M/mm3 (4.6-6.2); White Blood Count 6.6 K/mm3 (4.4-11.0)
[2023-01-14 16:25] LABS: Vitamin B12 491 pg/mL (211-911); Vitamin D,25 Hydroxy 42.8 ng/mL
[2023-01-14 16:33] LABS: Ferritin 113 ng/mL (26-388); T4 Free Direct 1.17 ng/dL (0.76-1.46); Thyroid Stim Hormone (TSH) 0.32 uIU/mL (0.358-3.74)
[2023-01-17 09:08] LABS: Anti-Thyroglobulin AB < 1.0 IU/mL (0.0-0.9); Thyroglobulin, Serum Qt. < 0.1 ng/mL (1.4-29.2)
== END | disposition home or self-care (01) ==
LOC: LAB 15:05
PROVIDERS: PCP Family Medicine; Referring Provider Internal Medicine Endocrinology, Diabetes & Metabolism; Visit Provider Internal Medicine Endocrinology, Diabetes & Metabolism
DX: R25.2 Cramp and spasm (principal); C73 Malignant neoplasm of thyroid gland; E55.9 Vitamin D deficiency, unspecified; E89.0 Postprocedural hypothyroidism
CPT/HCPCS: 36415; 82306; 82607; 82728; 84432; 84439; 84443; 85025; 86800

== ENCOUNTER 2023-11-03 13:44 | Emergency (ER) | payer OTHER, SELFPAY ==
[2023-11-03] VITALS (22 sets, daily range): BP systolic 140–177; BP diastolic 77–107; PULSE 67–111; RESP 15–28; TEMP 36.4–36.6; O2SAT 97–99; BMI 41.5
--- NOTE | 2023-11-03 14:03 | EDS_ITS ---
HPI History of Present Illness Chief Complaint: Dizziness Informant: patient Onset/Context/Timing Onset: Month(s) (1) Context: Sudden Onset Timing: Intermittent Quality: Racing Location: Chest Worsened by: Exertion Relieved by: Rest Narrative Narrative: Patient presents with palpitations that have been intermittent over the past month. Patient states that it seems to come on with exertion. Patient states he walked to his break room at work which was approximately 125 yards and he started having lightheadedness and feeling like his heart was racing. Patient states he got better with rest. Patient denies any shortness of breath. Patient denies any nausea or vomiting. Patient denies any diaphoresis. [facility] Medical History Atherosclerotic heart disease of [place] coronary artery without angina pectoris Cramps of left lower extremity Essential hypertension History of DVT (deep vein thrombosis) History of rectal or anal cancer Hyperlipidemia Malaise and fatigue Obesity Papillary thyroid carcinoma (~07/2018) Postoperative primary hypothyroidism Premature atrial contraction Presence of stent in coronary artery (~12/29/20) Pulmonary nodule SVT (supraventricular tachycardia) Thyroid nodule Home Medications multivitamin 1 tab PO DAILY 11/30/20 [History Last Taken Unknown] amlodipine 10 mg tablet 10 mg PO DAILY #90 tabs 07/18/21 [Rx Last Taken Unknown] aspirin 81 mg tablet,delayed release 81 mg PO DAILY #1 TAB 01/11/22 [Rx Last Taken Unknown] cholecalciferol (vitamin D3) 125 mcg (5,000 unit) tablet 125 mcg PO DAILY 01/11/22 [History Last Taken Unknown] nitroglycerin 0.4 mg sublingual tablet 0.4 mg sublingual Q5-15M PRN Cardiac/Chest Pain #25 tabs 01/11/22 [Rx Last Taken Unknown] pravastatin 20 mg tablet 20 mg PO QHS #90 tabs 09/12/22 [Rx Last Taken Unknown] levothyroxine 150 mcg tablet See Rx Instructions PO DAILY #96 tabs 03/31/23 [Rx Last Taken Unknown] apixaban 2.5 mg tablet (Eliquis) 2.5 mg PO BID 11/03/23 [History Last Taken Unknown] losartan 100 mg-hydrochlorothiazide 25 mg tablet 1 tab PO DAILY 11/03/23 [History Last Taken Unknown] potassium chloride 10 mEq capsule,extended release 10 meq PO DAILY #7 caps 11/03/23 [Rx Last Taken Unknown] Allergy/AdvReac Type Severity Reaction Status Date / Time codeine Allergy Severe anaphylaxis Verified 11/03/23 13:49 poison pilar extract Allergy Severe Rash Verified 11/03/23 13:49 ampicillin Allergy Unknown Unknown Verified 11/03/23 13:49 atorvastatin AdvReac Severe stiffness/m Verified 11/03/23 13:49 yalgia aspirin AdvReac Upset Verified 11/03/23 13:49 Stomach naproxen sodium [From Aleve] AdvReac Upset Verified 11/03/23 13:49 Stomach Family History Mother Breast cancer CAD (coronary artery disease) Hypertension Father Kidney disease Other Blood clot in vein Colon cancer High cholesterol Surgical History History of colectomy History of colonoscopy (~08/2013) History of colonoscopy (~08/2014) History of hernia repair (~03/2016) History of thyroidectomy (~10/2018) History of ventral hernia repair Presence of coronary angioplasty implant and graft (~12/29/20) Status post biopsy of thyroid gland (~07/2018) Social History Smoking Status: Former smoker alcohol intake: never substance use type: does not use caffeine: Yes Type: coffee Number of servings: 6 ROS ROS ED Constitutional Constitutional ED: Denies chills or fever(s) Eyes Eyes: Denies blurry vision or change in vision ENT ENT ED: Denies rhinorrhea or sore throat Cardiovascular Cardiovascular: Reports palpitations; Denies chest pain Respiratory/Chest Respiratory/Chest: Denies cough or dyspnea Gastrointestinal Gastrointestinal: Denies nausea or vomiting Genitourinary Genitourinary ED: Denies dysuria or hematuria Musculoskeletal Musculoskeletal: Denies back pain or neck pain Integumentary Denies abscess or rash Neurologic Neurologic: Denies headache(s) or weakness Allergic/Immunologic Allergic/Immunologic ED: Denies mouth swelling or urticaria EXAM Physical Exam Const Vital Signs: 11/03/23 13:46 11/03/23 13:46 11/03/23 14:02 Temperature 97.6 F L 97.6 F L Temperature Source Temporal Temporal Pulse Rate 80 80 Pulse Rate [Lying] Pulse Rate [Sitting (for 1 minute prior to obtaining)] Pulse Rate [Standing (for 1 minute prior to obtaining)] Respiratory Rate 16 16 Respiratory Pattern Normal Blood Pressure 177/95 H 177/95 H Blood Pressure [Lying] Blood Pressure [Sitting (for 1 minute prior to obtaining)] Blood Pressure [Standing (for 1 minute prior to obtaining)] Blood Pressure Mean 122 122 Blood Pressure Mean [Lying] Blood Pressure Mean [Sitting (for 1 minute prior to obtaining)] Blood Pressure Mean [Standing (for 1 minute prior to obtaining)] Pulse Ox 98 98 Oxygen Delivery Method Room Air Room Air 11/03/23 14:45 11/03/23 15:00 11/03/23 15:53 Temperature Temperature Source Pulse Rate 90 82 Pulse Rate [Lying] 74 Pulse Rate [Sitting (for 1 minute prior to obtaining)] 74 Pulse Rate [Standing (for 1 minute prior to obtaining)] 92 Respiratory Rate 16 26 H Respiratory Pattern Blood Pressure 159/99 H 159/99 H Blood Pressure [Lying] 151/85 H Blood Pressure [Sitting (for 1 minute prior to obtaining)] 143/97 H Blood Pressure [Standing (for 1 minute prior to obtaining)] 158/92 H Blood Pressure Mean 119 119 Blood Pressure Mean [Lying] 107 Blood Pressure Mean [Sitting (for 1 minute prior to obtaining)] 112 Blood Pressure Mean [Standing (for 1 minute prior to obtaining)] 114 Pulse Ox 99 99 Oxygen Delivery Method 11/03/23 14:01 11/03/23 14:15 11/03/23 14:30 Temperature Temperature Source Pulse Rate 77 88 83 Pulse Rate [Lying] Pulse Rate [Sitting (for 1 minute prior to obtaining)] Pulse Rate [Standing (for 1 minute prior to obtaining)] Respiratory Rate 21 H 22 H 16 Respiratory Pattern Blood Pressure 159/99 H Blood Pressure [Lying] Blood Pressure [Sitting (for 1 minute prior to obtaining)] Blood Pressure [Standing (for 1 minute prior to obtaining)] Blood Pressure Mean 114 Blood Pressure Mean [Lying] Blood Pressure Mean [Sitting (for 1 minute prior to obtaining)] Blood Pressure Mean [Standing (for 1 minute prior to obtaining)] Pulse Ox Oxygen Delivery Method 11/03/23 14:45 11/03/23 15:00 11/03/23 15:15 Temperature Temperature Source Pulse Rate 75 109 H 83 Pulse Rate [Lying] Pulse Rate [Sitting (for 1 minute prior to obtaining)] Pulse Rate [Standing (for 1 minute prior to obtaining)] Respiratory Rate 19 H 15 21 H Respiratory Pattern Blood Pressure Blood Pressure [Lying] Blood Pressure [Sitting (for 1 minute prior to obtaining)] Blood Pressure [Standing (for 1 minute prior to obtaining)] Blood Pressure Mean Blood Pressure Mean [Lying] Blood Pressure Mean [Sitting (for 1 minute prior to obtaining)] Blood Pressure Mean [Standing (for 1 minute prior to obtaining)] Pulse Ox Oxygen Delivery Method 11/03/23 15:30 11/03/23 15:42 11/03/23 15:45 Temperature Temperature Source Pulse Rate 74 81 Pulse Rate [Lying] Pulse Rate [Sitting (for 1 minute prior to obtaining)] Pulse Rate [Standing (for 1 minute prior to obtaining)] Respiratory Rate 20 H 28 H Respiratory Pattern Blood Pressure 158/88 H Blood Pressure [Lying] Blood Pressure [Sitting (for 1 minute prior to obtaining)] Blood Pressure [Standing (for 1 minute prior to obtaining)] Blood Pressure Mean 105 Blood Pressure Mean [Lying] Blood Pressure Mean [Sitting (for 1 minute prior to obtaining)] Blood Pressure Mean [Standing (for 1 minute prior to obtaining)] Pulse Ox Oxygen Delivery Method 11/03/23 15:54 11/03/23 15:56 11/03/23 16:00 Temperature Temperature Source Pulse Rate 111 H Pulse Rate [Lying] Pulse Rate [Sitting (for 1 minute prior to obtaining)] Pulse Rate [Standing (for 1 minute prior to obtaining)] Respiratory Rate 20 H Respiratory Pattern Blood Pressure 151/85 H 143/97 H 158/92 H Blood Pressure [Lying] Blood Pressure [Sitting (for 1 minute prior to obtaining)] Blood Pressure [Standing (for 1 minute prior to obtaining)] Blood Pressure Mean 102 109 113 Blood Pressure Mean [Lying] Blood Pressure Mean [Sitting (for 1 minute prior to obtaining)] Blood Pressure Mean [Standing (for 1 minute prior to obtaining)] Pulse Ox Oxygen Delivery Method Positive well nourished and well developed General Appearance ED: well developed and NAD HEENT Reports moist mucous membranes Neck supple and no JVD Resp normal respiratory effort and clear to auscultation bilaterally Cardio regular rate Rhythm: abnormal rhythm ectopic beats GI non-tender and non-distended Palpation: soft Extremity normal to inspection General Extremety ED: Negative for edema or tenderness General Extremity: Negative for edema Neuro oriented x3, CN's II-XII intact bilaterally and no sensory deficits noted Sensorium / Orientation: alert Motor Exam: strength 5/5 throughout Psych mental status grossly normal MDM MDM MDM Narrative Medical decision making narrative: Differential diagnosis includes cardiac dysrhythmia, cardiac ischemia, electrolyte abnormality, pneumonia, viral illness, pulmonary embolism, and urinary tract infection. EKG will be obtained to assess for cardiac dysrhythmia and cardiac ischemia. Chest x-ray will be obtained to assess for pneumonia and cardiomegaly. CBC will be obtained to assess for leukocytosis and anemia. Basic metabolic profile will be obtained to assess for electrolyte abnormality and renal function. High-sensitivity troponin will be obtained to assess for cardiac ischemia. D-dimer will be obtained to assess for pulmonary embolism. Urinalysis will be obtained to assess for urinary tract infection and hematuria. COVID-19, influenza, and RSV PCR will be obtained to assess for viral infection. Lab Data Attestation: I reviewed the patient's lab results. Lab results narrative: CBC was reviewed and was within normal limits. Basic metabolic profile was reviewed. Potassium was low at 2.5. The remainder was within normal limits. High-sensitivity troponin was reviewed and was normal at 13. D-dimer was reviewed and was normal at 0.45. Urinalysis was reviewed. There is no evidence of urinary tract infection or hematuria. COVID-19 PCR was reviewed and was negative. Influenza PCR was reviewed and was negative for influenza A and influenza B. RSV PCR was reviewed and was negative. Labs: Laboratory Results - last 24 hr 11/03/23 11/03/23 14:28 14:40 WBC 8.6 RBC 4.83 Hgb 14.8 Hct 41.8 MCV 86.5 MCH 30.6 MCHC 35.4 RDW Std Deviation 39.6 RDW Coeff of [place] 12.7 Plt Count 211 MPV 10.4 Immature Gran % (Auto) 0.500 Neut % (Auto) 76.0 H Lymph % (Auto) 15.4 L [place] % (Auto) 7.4 Eos % (Auto) 0.5 Baso % (Auto) 0.2 Absolute Neuts (auto) 6.5 Absolute Lymphs (auto) 1.32 Nucleated RBC % 0 D-Dimer Quant (PE/DVT) 0.45 Sodium 144 Potassium 2.5 L* Chloride 111 H Carbon Dioxide 24.0 Anion Gap 9 BUN 14 Creatinine 0.66 L Estim Creat Clear Calc 164.25 Est GFR (MDRD) Af Amer 158 Est GFR (MDRD) Non-Af 131 BUN/Creatinine Ratio 21.2 H Glucose 129 H Calcium 7.3 L Troponin I High Sens 13 Urine Color Straw Urine Clarity Clear Urine pH 7.0 Ur Specific [place] 1.010 Urine Protein Negative Urine Glucose (UA) Normal Urine Ketones Negative Urine Occult Blood 50 H Urine Nitrite Negative Urine Bilirubin Negative Urine Urobilinogen Normal Ur Leukocyte Esterase Negative Urine RBC 0-5 SEEN Urine WBC 0 SEEN Ur Squamous Epith Cells 0 SEEN Urine Bacteria 0 SEEN Urine Mucus 0 SEEN Radiography Diagnostic Testing: Clinical Impression(s) from Imaging Studies Chest X-Ray 11/03/23 14:50 IMPRESSION: No radiographic evidence of acute cardiopulmonary disease. Electronically Signed: Jose R Pedroza MD at 15:01 EDT , PA and lateral chest x-ray was obtained. There are 2 views. On my independent interpretation, lung hernandez are clear. There is normal cardiac silhouette. Bony thorax is normal. There is no acute process noted. Radiologist also interpreted the x-ray and agrees. EKG Initial EKG: Attestation: I personally reviewed and interpreted this EKG as follows: Interpretation: Sinus Rhythm (With frequent PACs with a rate of 81) and Non-Specific ST Changes Comments: EKG was obtained. On my independent interpretation, it showed a normal sinus rhythm with frequent PACs with a rate of 81. HI interval, QRS interval, and QTc intervals were all normal. [place] was normal. There are nonspecific ST-T wave changes. Prior EKG tracings: available for review Prior: Unchanged (12/30/2020) Treatment and Re-Evaluation :: Patient was advised of his findings. Patient was given oral and IV potassium here. Patient was given a prescription for a short course of potassium. Patient was instructed to follow-up with his primary care physician in 5 to 7 days. Patient was instructed to return if worse in any way. Patient understood and was agreeable with the plan. All questions were answered. Discharge Plan Triage Chief Complaint: Dizziness ED Provider: Gen Cuello Dx/Rx/DC Orders Clinical Impression: Palpitations, Hypokalemia Instructions: ED Hypokalemia, ED Palpitations Prescriptions: New potassium chloride 10 mEq capsule, extended release 10 meq PO DAILY Qty: 7 0RF No Action multivitamin Tablet 1 tab PO DAILY amlodipine 10 mg tablet 10 mg PO DAILY Qty: 90 3RF cholecalciferol (vitamin D3) 125 mcg (5,000 unit) tablet 125 mcg PO DAILY nitroglycerin 0.4 mg tablet, sublingual 0.4 mg sublingual Q5-15M PRN (Reason: Cardiac/Chest Pain) Qty: 25 3RF aspirin 81 mg tablet,delayed release (DR/EC) 81 mg PO DAILY Qty: 1 0RF pravastatin 20 mg tablet 20 mg PO QHS Qty: 90 3RF losartan-hydrochlorothiazide 100-25 mg tablet 1 tab PO DAILY Eliquis 2.5 mg tablet 2.5 mg PO BID levothyroxine 150 mcg tablet See Rx Instructions PO DAILY Qty: 96 2RF Rx Instructions: 2 tabs Friday, 1 tab Friday-Friday orally daily; Primary Care Provider: Fuad Muñoz Referrals: Fuad Muñoz DO [Primary Care Provider] - 3-5 Days Disposition Disposition: Home, Self Care
--- NOTE | 2023-11-03 14:17 | EKG12_ITS ---
Test Reason : PALP Blood Pressure : / mmHG Vent. Rate : 081 BPM Atrial Rate : 081 BPM P-R Int : 168 ms QRS Dur : 094 ms QT Int : 412 ms P-R-T Axes : 072 -10 022 degrees QTc Int : 478 ms Sinus rhythm with Premature supraventricular complexes Cannot rule out Anterior infarct , age undetermined Abnormal ECG Confirmed by Aaron Trevizo [id number]), digital editor AUDRA QUINN ([id number]) on 11/04/2023 10:09:32 AM Referred By: SUHAIL Confirmed By:Aaron Trevizo
[2023-11-03 14:35] LABS: Bacteria 0 SEEN /hpf (None Seen); Mucous, Urine 0 SEEN /hpf (<or=2+); Squamous Epithelial Cells - UA 0 SEEN /hpf (0-5); White Blood Cells 0 SEEN /hpf (0-5)
--- NOTE | 2023-11-03 14:50 | RAD_ITS ---
INDICATION: Palpitations EXAMINATION/TECHNIQUE: X-RAY - XR Chest 2 Views COMPARISON: No relevant prior comparison study available FINDINGS: LINES/DEVICES: None. LUNGS: No consolidation, edema or effusion. No pneumothorax. MEDIASTINUM AND CARDIOVASCULAR STRUCTURES: Cardiac silhouette not enlarged. Central airways and mediastinal contour are unremarkable. BONES AND SOFT TISSUES: Unremarkable. RAD/Chest PA and Lateral IMPRESSION: No radiographic evidence of acute cardiopulmonary disease. Electronically Signed: Jose R Pedroza MD at 15:01 EDT ,
[2023-11-03 14:56] LABS: Absolute Lymphocyte Count 1.32 X10^3/uL (0.83-4.51); Absolute Neutrophil Count 6.5 X10^3/uL (2.0-7.7); Basophil# 0.02 X10^3/uL; Basophil% 0.2 % (0-1); Eosinophil# 0.04 X10^3/uL; Eosinophils% 0.5 % (0-5); Hematocrit 41.8 % (40-54); Hemoglobin 14.8 g/dL (13.0-16.5); Lymphocyte # 1.32 X10^3/ul (0.83-4.51); Lymphocyte % 15.4 % (19-41); Mean Corp Hgb Conc 35.4 g/dL (32-36); Mean Corpuscular Hgb 30.6 pg (27.0-32.0); Mean Corpuscular Volume 86.5 fL (80-94); Mean Platelet Vol. 10.4 fl (6.2-12.0); Monocyte# 0.63 X10^3/uL; Monocyte% 7.4 % (0-10); NRBC Flagged by Analyzer 0 % (0-5); Neutrophil # 6.52 X10^3/uL (2.7-7.7); Platelet Count 211 K/mm3 (150-450); RBC Distribution Width CV 12.7 % (11.6-14.6); RBC Distribution Width SD 39.6 fl (35.1-43.9); Red Blood Count 4.83 M/mm3 (4.6-6.2); White Blood Count 8.6 K/mm3 (4.4-11.0)
[2023-11-03 15:01] LABS: Color, Urine Straw (Yellow); Glucose, Dipstick Normal (Normal); Ketone-Dipstick Negative (Negative); Leukocyte Esterase-Dipstick Negative /ul (Negative); Nitrite-Dipstick Negative (Negative); Occult Blood-Urine 50 /ul (Negative); Protein-Dipstick Negative (Negative); Urine Bilirubin Dipstick Negative (Negative); Urine Clarity Clear (Clear); Urine Urobilinogen Normal (Normal)
[2023-11-03 15:07] LABS: D-Dimer Quantitative (DVT/PE) 0.45 FEU/ug/m (0.27-0.49)
[2023-11-03 15:12] LABS: Red Blood Cells-Urine 0-5 SEEN /hpf (0-5)
[2023-11-03 15:18] LABS: Anion Gap 9 (5-15); BUN 14 mg/dL (7-18); BUN/Creat Ratio 21.2 RATIO (10-20); Calcium,Total 7.3 mg/dL (8.5-10.1); Chloride 111 mmol/L (98-107); Creatinine, Serum 0.66 mg/dL (0.70-1.30); EST Glomerular Filtration Rate 131 mL/min (>60); Est Glom Filt Rate - Afr Amer 158 mL/min (>60); Estimated Creatinine Clearance 164.25 ml/min; Glucose 129 mg/dL (74-106); Potassium 2.5 mmol/L (3.5-5.1); Sodium Level 144 mmol/L (136-145); Troponin-I HS 13 pg/mL (3.0-78.0)
[2023-11-03] MEDS: Potassium Chloride Oral Tablet 20 MEQ 40 MEQ PO (15:39)
[2023-11-03] MEDS: Potassium Chloride 10mEq/100mL 10 MEQ/100 ML IV.SOLN. 100 MEQ IV BOLUS ×2 (16:46→17:51)
== END 2023-11-03 18:52 | disposition home or self-care (01) ==
PROVIDERS: Emergency Provider Emergency Medicine; PCP Family Medicine; Visit Provider Emergency Medicine
DX: R00.2 Palpitations (principal); E87.6 Hypokalemia; Z79.01 Long term (current) use of anticoagulants; Z86.718 Personal history of other venous thrombosis and embolism; Z95.5 Presence of coronary angioplasty implant and graft; Z87.891 Personal history of nicotine dependence
CPT/HCPCS: 71046; 80048; 81001; 84484; 85025; 85379; 87631; 93005; 96365; 96366; 99285; J7030

== ENCOUNTER → 2023-11-06 | Outpatient (CLI) | payer OTHER, SELFPAY ==
[2023-11-06 16:58] LABS: Ionized Calcium 4.88 mg/dL (4.36-5.20)
[2023-11-06 17:16] LABS: PTHIN 45.1 pg/mL (18.4-80.1)
[2023-11-06 17:20] LABS: Vitamin D,25 Hydroxy 32.1 ng/mL
[2023-11-06 17:26] LABS: ALB/GLOB Ratio 1.1 RATIO (0.9-2.4); AST(SGOT) 28 U/L (15-37); Alanine Aminotransfer ALT/SGPT 44 U/L (16-61); Alkaline Phosphatase 69 U/L (45-117); Anion Gap 5 (5-15); BUN 16 mg/dL (7-18); BUN/Creat Ratio 15.1 RATIO (10-20); Calcium,Total 9.2 mg/dL (8.5-10.1); Chloride 106 mmol/L (98-107); Creatinine, Serum 1.06 mg/dL (0.70-1.30); EST Glomerular Filtration Rate 76 mL/min (>60); Est Glom Filt Rate - Afr Amer 92 mL/min (>60); Free T3 2.4 pg/mL (2.18-3.98); Globulin 3.7 g/dL (2.2-4.2); Glucose 96 mg/dL (74-106); Magnesium 2.1 mg/dL (1.6-2.6); Potassium 3.6 mmol/L (3.5-5.1); Protein, Total 7.7 g/dL (6.4-8.2); Sodium Level 138 mmol/L (136-145); Thyroid Stim Hormone (TSH) 1.08 uIU/mL (0.358-3.74)
[2023-11-07 00:44] LABS: Ionized Calcium Order ORDER TUBE
== END | disposition home or self-care (01) ==
PROVIDERS: PCP Family Medicine; Referring Provider Physician Assistant Medical; Visit Provider Physician Assistant Medical
DX: E87.6 Hypokalemia (principal); F41.9 Anxiety disorder, unspecified; E83.51 Hypocalcemia; R00.2 Palpitations
CPT/HCPCS: 36415; 80053; 82306; 82330; 83735; 83970; 84439; 84443; 84481

== ENCOUNTER → 2023-11-21 | Outpatient (CLI) | payer OTHER, SELFPAY | END | disposition home or self-care (01) | LOC: PSN 06:48 | PROVIDERS: PCP Family Medicine; Referring Provider Physician Assistant Medical; Visit Provider Physician Assistant Medical | DX: I47.10 Supraventricular tachycardia, unspecified (principal); I25.10 Atherosclerotic heart disease of native coronary artery without angina pectoris | CPT/HCPCS: 93225; 93226 ==

== ENCOUNTER → 2023-12-04 | Outpatient (CLI) | payer OTHER, SELFPAY ==
[2023-12-04 17:26] LABS: ALB/GLOB Ratio 1.1 RATIO (0.9-2.4); AST(SGOT) 28 U/L (15-37); Alanine Aminotransfer ALT/SGPT 49 U/L (16-61); Albumin, Serum 3.7 g/dL (3.2-5.0); Alkaline Phosphatase 62 U/L (45-117); Anion Gap 6 (5-15); BUN 19 mg/dL (7-18); BUN/Creat Ratio 20.2 RATIO (10-20); Calcium,Total 8.8 mg/dL (8.5-10.1); Chloride 110 mmol/L (98-107); Creatinine, Serum 0.94 mg/dL (0.70-1.30); EST Glomerular Filtration Rate 87 mL/min (>60); Est Glom Filt Rate - Afr Amer 105 mL/min (>60); Ferritin 124 ng/mL (26-388); Globulin 3.5 g/dL (2.2-4.2); Glucose 99 mg/dL (74-106); Magnesium 2.2 mg/dL (1.6-2.6); Potassium 3.8 mmol/L (3.5-5.1); Protein, Total 7.2 g/dL (6.4-8.2); Sodium Level 140 mmol/L (136-145)
[2023-12-08 17:07] LABS: Anti-Thyroglobulin AB < 1.0 IU/mL (0.0-0.9); Thyroglobulin, Serum Qt. < 0.1 ng/mL (1.4-29.2)
== END | disposition home or self-care (01) ==
LOC: LAB 15:47
PROVIDERS: PCP Family Medicine; Referring Provider Internal Medicine Endocrinology, Diabetes & Metabolism; Visit Provider Internal Medicine Endocrinology, Diabetes & Metabolism
DX: C73 Malignant neoplasm of thyroid gland (principal); E89.0 Postprocedural hypothyroidism; E87.6 Hypokalemia
CPT/HCPCS: 36415; 80053; 82728; 83735; 84432; 86800